=== PATIENT | male | born 1945 | race Caucasian/White ===

== ENCOUNTER → 2017-05-25 | Outpatient (CLI) | payer MEDICARE ==
--- NOTE | 2017-05-25 13:06 | XR ---
EXAMINATION TYPE: XR foot complete RT DATE OF EXAM: 05/25/2017 CLINICAL HISTORY: pain TECHNIQUE: Frontal, lateral and oblique images of the right foot are obtained. COMPARISON: None. FINDINGS: There is no acute fracture/dislocation evident. Mild degenerative narrowing first metatars al phalangeal joint space. The overlying soft tissue appears unremarkable. IMPRESSION: There is no acute fracture or dislocation. ICD 10 NO FRACTURE, INITIAL EVALUATION
== END ==
LOC: RADXRMAIN 12:38
PROVIDERS: ATTEND Family Medicine
DX: S99.921A Unspecified injury of right foot, initial encounter (principal)

== ENCOUNTER → 2018-05-20 | Outpatient (CLI) | payer MEDICARE ==
[2018-05-20 10:22] LABS: Basophils # (A) 0.1 k/uL (0-0.2); Basophils % (A) 1 %; Eosinophils # (A) 0.1 k/uL (0-0.7); Eosinophils % (A) 2 %; HCT 45.2 % (39.0-53.0); HGB 15.1 gm/dL (13.0-17.5); Lymphocytes # (A) 1.6 k/uL (1.0-4.8); Lymphocytes % (A) 28 %; MCH 29.9 pg (25.0-35.0); MCHC 33.5 g/dL (31.0-37.0); MCV 89.3 fL (80.0-100.0); Mean Platelet Volume 6.3; Monocytes # (A) 0.6 k/uL (0-1.0); Monocytes % (A) 10 %; Neutrophils # (A) 3.1 k/uL (1.3-7.7); Neutrophils % (A) 55 %; Platelet Count 237 k/uL (150-450); RBC 5.06 m/uL (4.30-5.90); RDW 13.3 % (11.5-15.5); WBC 5.7 k/uL (3.8-10.6)
[2018-05-20 11:38] LABS: Erythrocyte Sedimentation Rate 3 mm/hr (0-15)
== END | disposition home or self-care (01) ==
LOC: LABWHC1 09:41
PROVIDERS: ATTEND Family Medicine
DX: R50.9 Fever, unspecified (principal); B99.9 Unspecified infectious disease
CPT/HCPCS: 36415; 85025; 85652

== ENCOUNTER 2018-11-28 13:24 | Observation (INO) | payer MEDICARE ==
--- NOTE | 2018-11-28 14:49 | ED ---
General Adult HPI - General Chief complaint: Arrhythmia/Palpitations Stated complaint: Low heart rate Time Seen by Provider: 11/28/18 13:45 Source: patient, family, RN notes reviewed Mode of arrival: wheelchair Limitations: no limitations - History of Present Illness Initial comments: Patient is a pleasant 73-year-old male presenting to the emergency department with concerns for low heart rate. Patient states he did go to his doctor today who sent him here secondary to bradycardia. Patient states he did recently start Lopressor. Patient states overall he feels fine and does not have significant complaints. states the patient seems to be a little bit more drowsy lately and may be somewhat off balance. She states he has been a little bit delayed in general. Patient denies any confusion. Patient denies any weakness. - Related Data Home Medications Medication Instructions Recorded Confirmed Aspirin EC [Ecotrin Low Dose] 81 mg PO DAILY 11/28/18 11/28/18 Metoprolol Tartrate [Lopressor] 100 mg PO BID 11/28/18 11/28/18 Multivit-Min/FA/Lycopen/Lutein 1 tab PO DAILY 11/28/18 11/28/18 [Centrum Silver Tablet] metFORMIN HCL [Glucophage] 500 mg PO BID 11/28/18 11/28/18 Allergies Allergy/AdvReac Type Severity Reaction Status Date / Time diphenhydramine Allergy Itching Verified 11/28/18 14:05 [From Flora] Review of Systems ROS Statement: Those systems with pertinent positive or pertinent negative responses have been documented in the HPI. ROS Other: All systems not noted in ROS Statement are negative. Constitutional: Denies: fever Eyes: Denies: eye pain ENT: Denies: ear pain Respiratory: Denies: dyspnea Cardiovascular: Denies: chest pain, palpitations Endocrine: Denies: fatigue Gastrointestinal: Denies: abdominal pain Genitourinary: Denies: dysuria Musculoskeletal: Denies: back pain Skin: Denies: rash Neurological: Denies: headache, weakness, confusion Past Medical History Past Medical History: CVA/TIA, Hyperlipidemia, Hypertension History of Any Multi-Drug Resistant Organisms: None Reported Past Surgical History: No Surgical Hx Reported Past Psychological History: No Psychological Hx Reported Smoking Status: Never smoker Past Alcohol Use History: None Reported Past Drug Use History: None Reported General Exam Limitations: no limitations General appearance: alert, in no apparent distress Head exam: Present: atraumatic Eye exam: Present: normal appearance, PERRL, EOMI. Absent: nystagmus ENT exam: Present: normal oropharynx Neck exam: Present: normal inspection Respiratory exam: Present: normal lung sounds bilaterally Cardiovascular Exam: Present: bradycardia Expanded Peripheral pulses: 2+: Radial (R), Radial (L), Posterior Tibialis (R), Posterior Tibialis (L) GI/Abdominal exam: Present: soft. Absent: tenderness Extremities exam: Present: normal inspection. Absent: pedal edema, calf tend erness Neurological exam: Present: alert, oriented X3, CN II-XII intact. Absent: motor sensory deficit Expanded Neurological exam: Present: protecting the airway Patient oriented to: Present: person, place, time Speech: Present: fluid speech Cranial nerves: EOM's Intact: Normal, Facial Sensation: Normal Cerebellar function: Finger to Nose: Normal Sensory exam: Upper Extremity Light Touch: Normal, Lower Extremity Light Touch: Normal Motor strength exam: RUE: 5, LUE: 5, RLE: 5, LLE: 5 Eye Response: (4) open spontaneously Motor Response: (6) obeys commands Verbal Response: (5) oriented Psychiatric exam: Present: normal affect, normal mood Skin exam: Present: normal color Course Vital Signs 11/28/18 11/28/18 11/28/18 13:28 13:47 13:50 Temperature 97.8 F Pulse Rate 58 L 54 L Pulse Rate [ Apical] Respiratory 18 20 Rate Blood Pressure 169/83 198/96 O2 Sat by Pulse 97 96 98 Oximetry 11/28/18 11/28/18 11/28/18 13:57 14:00 14:10 Temperature Pulse Rate 50 L 51 L Pulse Rate [ 51 L Apical] Respiratory 25 H 25 H Rate Blood Pressure 198/96 198/96 O2 Sat by Pulse 96 96 Oximetry 11/28/18 11/28/18 11/28/18 14:20 14:30 14:40 Temperature Pulse Rate 51 L 48 L 49 L Pulse Rate [ Apical] Respiratory 22 20 24 Rate Blood Pressure 198/96 198/96 198/96 O2 Sat by Pulse 97 95 97 Oximetry 11/28/18 11/28/18 11/28/18 14:50 15:00 15:10 Temperature Pulse Rate 54 L Pulse Rate [ Apical] Respiratory 15 15 Rate Blood Pressure 162/89 162/89 162/89 O2 Sat by Pulse 97 Oximetry 11/28/18 11/28/18 11/28/18 15:20 15:30 15:40 Temperature Pulse Rate 53 L 50 L Pulse Rate [ Apical] Respiratory 24 12 Rate Blood Pressure 162/89 162/89 162/89 O2 Sat by Pulse 97 Oximetry EKG Findings - EKG Comments: EKG Findings:: Sinus bradycardia at 52. PVC present. VA 138. QRS 86. QT 438. QTC 47. Left axis. Inferior Q waves. No acute ST change. Medical Decision Making - Medical Decision Making Patient reevaluated. Patient and family updated. Case was discussed in detail with Dr. clark, who will admit covering for hospital call. He does request ABG. Cardiology consult placed. - Lab Data Result diagrams: 11/28/18 14:15 11/28/18 14:15 Lab Results 11/28/18 11/28/18 11/28/18 Range/Units 14:15 14:15 14:15 WBC 7.3 (3.8-10.6) k/uL RBC 4.83 (4.30-5.90) m/uL Hgb 14.2 (13.0-17.5) gm/dL Hct 43.9 (39.0-53.0) % MCV 91.0 (80.0-100.0) fL MCH 29.5 (25.0-35.0) pg MCHC 32.4 (31.0-37.0) g/dL RDW 14.1 (11.5-15.5) % Plt Count 255 (150-450) k/uL Neutrophils % 61 % Lymphocytes % 22 % Monocytes % 9 % Eosinophils % 3 % Basophils % 2 % Neutrophils # 4.5 (1.3-7.7) k/uL Lymphocytes # 1.6 (1.0-4.8) k/uL Monocytes # 0.6 (0-1.0) k/uL Eosinophils # 0.2 (0-0.7) k/uL Basophils # 0.1 (0-0.2) k/uL PT 10.0 (9.0-12.0) sec INR 0.9 (<1.2) APTT 24.7 (22.0-30.0) sec Sodium 141 (137-145) mmol/L Potassium 4.9 (3.5-5.1) mmol/L Chloride 106 (98-107) mmol/L Carbon Dioxide 26 (22-30) mmol/L Anion Gap 9 mmol/L BUN 19 (9-20) mg/dL Creatinine 0.80 (0.66-1.25) mg/dL Est GFR (CKD-EPI)AfAm >90 (>60 ml/min/1.73 sqM) Est GFR (CKD-EPI)NonAf 90 (>60 ml/min/1.73 sqM) Glucose 95 (74-99) mg/dL Calcium 9.6 (8.4-10.2) mg/dL Magnesium 2.0 (1.6-2.3) mg/dL Total Bilirubin 0.3 (0.2-1.3) mg/dL AST 24 (17-59) U/L ALT 37 (21-72) U/L Alkaline Phosphatase 59 (38-126) U/L Troponin I (0.000-0.034) ng/mL Total Protein 6.8 (6.3-8.2) g/dL Albumin 4.1 (3.5-5.0) g/dL TSH 2.850 (0.465-4.680) mIU/L Free T4 0.87 (0.78-2.19) ng/dL Free T3 pg/mL 3.2 (2.8-5.3) pg/ml 11/28/18 Range/Units 14:15 WBC (3.8-10.6) k/uL RBC (4.30-5.90) m/uL Hgb (13.0-17.5) gm/dL Hct (39.0-53.0) % MCV (80.0-100.0) fL MCH (25.0-35.0) pg MCHC (31.0-37.0) g/dL RDW (11.5-15.5) % Plt Count (150-450) k/uL Neutrophils % % Lymphocytes % % Monocytes % % Eosinophils % % Basophils % % Neutrophils # (1.3-7.7) k/uL Lymphocytes # (1.0-4.8) k/uL Monocytes # (0-1.0) k/uL Eosinophils # (0-0.7) k/uL Basophils # (0-0.2) k/uL PT (9.0-12.0) sec INR (<1.2) APTT (22.0-30.0) sec Sodium (137-145) mmol/L Potassium (3.5-5.1) mmol/L Chloride (98-107) mmol/L Carbon Dioxide (22-30) mmol/L Anion Gap mmol/L BUN (9-20) mg/dL Creatinine (0.66-1.25) mg/dL Est GFR (CKD-EPI)AfAm (>60 ml/min/1.73 sqM) Est GFR (CKD-EPI)NonAf (>60 ml/min/1.73 sqM) Glucose (74-99) mg/dL Calcium (8.4-10.2) mg/dL Magnesium (1.6-2.3) mg/dL Total Bilirubin (0.2-1.3) mg/dL AST (17-59) U/L ALT (21-72) U/L Alkaline Phosphatase (38-126) U/L Troponin I <0.012 (0.000-0.034) ng/mL Total Protein (6.3-8.2) g/dL Albumin (3.5-5.0) g/dL TSH (0.465-4.680) mIU/L Free T4 (0.78-2.19) ng/dL Free T3 pg/mL (2.8-5.3) pg/ml - Radiology Data Radiology results: report reviewed (Computed tomography scan of the brain shows old right parietal occipital watershed infarct.. Ventricular white matter changes.), image reviewed (X-ray shows no acute process) Disposition Clinical Impression: Bradycardia Disposition: ADMITTED IP TO THIS HOSP Is patient prescribed a controlled substance at d/c from ED?: No Referrals: David Mcpherson MD [Primary Care Provider] - 1-2 days Decision Time: 16:29
[2018-11-28 15:17] LABS: Basophils # (A) 0.1 k/uL (0-0.2); Basophils % (A) 2 %; Eosinophils # (A) 0.2 k/uL (0-0.7); Eosinophils % (A) 3 %; HCT 43.9 % (39.0-53.0); HGB 14.2 gm/dL (13.0-17.5); INR 0.9 (<1.2); Lymphocytes # (A) 1.6 k/uL (1.0-4.8); Lymphocytes % (A) 22 %; MCH 29.5 pg (25.0-35.0); MCHC 32.4 g/dL (31.0-37.0); Mean Platelet Volume 7.2; Monocytes # (A) 0.6 k/uL (0-1.0); Monocytes % (A) 9 %; Neutrophils # (A) 4.5 k/uL (1.3-7.7); Neutrophils % (A) 61 %; Partial Thromboplastin Time 24.7 sec (22.0-30.0); Platelet Count 255 k/uL (150-450); RBC 4.83 m/uL (4.30-5.90); RDW 14.1 % (11.5-15.5); WBC 7.3 k/uL (3.8-10.6)
--- NOTE | 2018-11-28 15:23 | CT ---
EXAMINATION TYPE: CT brain wo con DATE OF EXAM: 11/28/2018 COMPARISON: None INDICATION: Slurred speech, confusion. DLP: 1168.4 mGycm, Automated exposure control for dose reduction was used. CONTRAST: None CT of the brain is performed utilizing 3 mm thick sections through the posterior fossa and 3 mm thick sections through the remaining calvarium. Study is performed within 24 hours of arrival to the hosp ital. No abnormal hyperdensity is present to suggest an acute intracranial hemorrhage. No mass lesion is evident. No acute infarcts are evident. Periventricular white matter hypodensity is present, likely on the bas is of white matter ischemic changes. An old right watershed infarct is present. Ventricles and sulci are slightly prominent for the patient age. Mild ex vacuo effect is adjacent to the old watershed infarct. Paranasal sinuses and mastoid air cells within the [id number] are clear. IMPRESSIONS: 1. 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 2. Periventricular white matter ischemic type changes.
[2018-11-28 15:26] LABS: ALT 37 U/L (21-72); AST 24 U/L (17-59); Albumin 4.1 g/dL (3.5-5.0); Alkaline Phosphatase 59 U/L (38-126); Anion Gap 9 mmol/L; Blood Urea Nitrogen 19 mg/dL (9-20); Calcium 9.6 mg/dL (8.4-10.2); Carbon Dioxide 26 mmol/L (22-30); Chloride 106 mmol/L (98-107); Glucose 95 mg/dL (74-99); Potassium 4.9 mmol/L (3.5-5.1); Sodium 141 mmol/L (137-145); Total Bilirubin 0.3 mg/dL (0.2-1.3); Total Protein 6.8 g/dL (6.3-8.2)
--- NOTE | 2018-11-28 15:27 | XR ---
EXAMINATION TYPE: XR chest 2V DATE OF EXAM: 11/28/2018 COMPARISON: NONE HISTORY: Dysrhythmia TECHNIQUE: Frontal and lateral views of the chest are obtained. FINDINGS: There is no focal air space opacity, pleural effusion, or pneumothorax seen. The cardiac silhouette size is upper limits of normal. The osseous structures are intact. Moderate multilevel d egenerative change of the thoracic spine is seen as well as flowing anterior osteophytes. IMPRESSION: No acute cardiopulmonary process.
[2018-11-28 15:39] LABS: T4, Free (Free Thyroxine) 0.87 ng/dL (0.78-2.19)
[2018-11-28] MEDS ORDERED: NALOXONE 0.4 MG/ML 1 ML VIAL IV PRN (16:29)
[2018-11-28] MEDS ORDERED: SODIUM CHLORIDE 0.9% 1,000 ML IV SCH (16:30)
[2018-11-28 16:49] LABS: ABG Base Excess 0.8 mmol/L; ABG HCO3 24 mmol/L (21-25); ABG Oxygen Saturation 99.9 % (94-97); ABG PCO2 32 mmHg (35-45); ABG PH 7.49 (7.35-7.45); ABG PO2 181 mmHg (83-108); ABG TCO2 25 mmol/L (19-24)
[2018-11-28] MEDS ORDERED: MULTIVITAMINS, THERA 1 EACH TAB PO SCH (17:30)
[2018-11-28] MEDS ORDERED: METOPROLOL TARTRATE 50 MG TAB PO SCH (18:00)
[2018-11-28] MEDS ORDERED: ASPIRIN 81 MG PO STA (19:14)
[2018-11-28] MEDS ORDERED: metFORMIN 500 MG TAB PO SCH (21:00)
[2018-11-28 21:45] VITALS: BP 134/67; PULSE 56; RESP 15; TEMP 98
[2018-11-29] MEDS ORDERED: ASPIRIN 81 MG PO SCH (09:00)
--- NOTE | 2018-12-01 06:40 | DS ---
DISCHARGE SUMMARY HISTORY AND PHYSICAL AND DISCHARGE SUMMARY: DATE OF ADMISSION AND TRANSFER: 11/28/2018 HOSPITAL COURSE: This patient was to be admitted from the ER, but the ER physician evaluated the patient and because of neurological status decided to transfer the patient out. The patient was not admitted to the hospital. The patient was not seen by me. JIMY / JOSÉ MANUEL: [id number] /
== END 2018-11-29 02:06 | disposition critical access hospital (66) ==
LOC: EC 13:24 → 1SOBS 16:29
PROVIDERS: ADMIT Hospitalist; ATTEND Hospitalist
DX: R00.1 Bradycardia, unspecified (principal); R00.2 Palpitations; R40.0 Somnolence; E78.5 Hyperlipidemia, unspecified; I10 Essential (primary) hypertension; Z86.73 Personal history of transient ischemic attack (TIA), and cerebral infarction without residual deficits; Z79.82 Long term (current) use of aspirin; Z79.84 Long term (current) use of oral hypoglycemic drugs; Z79.899 Other long term (current) drug therapy; Z88.8 Allergy status to other drugs, medicaments and biological substances
CPT/HCPCS: 99285; 36415; 36600; 93005; 84439; 84481; 80053; 82805; 83735; 84443; 84484; 85025; 85610; 85730; 71046; 70450; G0378 ×2

== ENCOUNTER 2021-08-04 21:02 | Inpatient (IN) | payer MEDICARE ==
--- NOTE | 2021-08-04 21:27 | ED ---
SOB HPI - General Chief Complaint: Shortness of Breath Stated Complaint: Shortness of Breath Time Seen by Provider: 08/04/21 21:15 Source: patient Mode of arrival: ambulatory - History of Present Illness Initial Comments: This patient is 76-year-old man who presents to be evaluated for shortness of breath and cough. The patient states that symptoms have been coming on over the past few days. Patient relates that someone had come into his home and to lay carpet and had not been feeling well. Patient states that he began feeling more short of breath tonight and therefore they called the ambulance to bring him here. Patient denies history of previous underlying lung disease. No home oxygen use. The patient had not noted fevers at home but did note one in the ambulance. MD Complaint: shortness of breath, cough -: days(s) Severity scale (1-10): 0 Consistency: constant Improves With: nothing Worsens With: nothing Associated Symptoms: fever, cough Treatments Prior to Arrival: oxygen - Related Data Home Oxygen Therapy: No Home Medications Medication Instructions Recorded Confirmed Aspirin EC [Ecotrin Low Dose] 81 mg PO DAILY 11/28/18 08/04/21 Metoprolol Tartrate [Lopressor] 100 mg PO BID 11/28/18 08/04/21 metFORMIN HCL [Glucophage] 500 mg PO BID 11/28/18 08/04/21 Atorvastatin Calcium [Lipitor] 40 mg PO HS 08/04/21 08/04/21 lisinopriL [Zestril] 10 mg PO DAILY 08/04/21 08/04/21 Allergies Allergy/AdvReac Type Severity Reaction Status Date / Time diphenhydramine Allergy Itching Verified 08/04/21 22:37 [From Benadryl] Review of Systems ROS Statement: Those systems with pertinent positive or pertinent negative responses have been documented in the HPI. ROS Other: All systems not noted in ROS Statement are negative. Constitutional: Denies: fever, chills ENT: Reports: congestion Respiratory: Reports: cough, dyspnea. Denies: hemoptysis Cardiovascular: Denies: chest pain, palpitations, orthopnea, edema, syncope Gastrointestinal: Denies: abdominal pain, vomiting, diarrhea, melena, hematochezia Genitourinary: Denies: dysuria, hematuria Musculoskeletal: Denies: back pain Skin: Denies: rash Neurological: Denies: headache, weakness, numbness Past Medical History Past Medical History: CVA/TIA, Hyperlipidemia, Hypertension History of Any Multi-Drug Resistant Organisms: None Reported Past Surgical History: No Surgical Hx Reported, Heart Catheterization Additional Past Surgical History / Comment(s): anal fissure repair and polyp removal Past Psychological History: No Psychological Hx Reported Smoking Status: Former smoker Past Alcohol Use History: None Reported Past Drug Use History: None Reported General Exam General appearance: alert, in distress Head exam: Present: atraumatic, normocephalic Eye exam: Present: normal appearance. Absent: scleral icterus, conjunctival injection Neck exam: Present: normal inspection Respiratory exam: Present: respiratory distress (Tachypnea), rales. Absent: wheezes, rhonchi, stridor, accessory muscle use, decreased breath sounds, prolonged expiratory Cardiovascular Exam: Present: normal rhythm, tachycardia, normal heart sounds. Absent: systolic murmur, diastolic murmur, rubs, gallop GI/Abdominal exam: Present: soft, hernia (There is an umbilical hernia which is nontender.). Absent: distended, tenderness, guarding, rebound, rigid, mass, pulsatile mass Extremities exam: Present: normal inspection, normal capillary refill. Absent: pedal edema, calf tenderness Back exam: Present: normal inspection. Absent: CVA tenderness (R), CVA tenderness (L) Neurological exam: Present: alert Skin exam: Present: warm, dry, intact, normal color. Absent: rash Course Vital Signs 08/04/21 08/04/21 21:11 21:17 Temperature 99.3 F Pulse Rate 117 H Respiratory 26 H 24 Rate Blood Pressure 178/97 O2 Sat by Pulse 93 L Oximetry Medical Decision Making - Lab Data Result diagrams: 08/04/21 21:29 08/04/21 21:29 Lab Results 08/04/21 08/04/21 08/04/21 Range/Units 21:29 21:29 21:29 WBC 21.2 H (3.8-10.6) k/uL RBC 4.70 (4.30-5.90) m/uL Hgb 14.5 (13.0-17.5) gm/dL Hct 40.3 (39.0-53.0) % MCV 85.6 (80.0-100.0) fL MCH 30.9 (25.0-35.0) pg MCHC 36.1 (31.0-37.0) g/dL RDW 12.3 (11.5-15.5) % Plt Count 332 (150-450) k/uL MPV 7.7 Neutrophils % 91 % Lymphocytes % 2 % Monocytes % 6 % Eosinophils % 0 % Basophils % 0 % Neutrophils # 19.2 H (1.3-7.7) k/uL Lymphocytes # 0.4 L (1.0-4.8) k/uL Monocytes # 1.2 H (0-1.0) k/uL Eosinophils # 0.1 (0-0.7) k/uL Basophils # 0.1 (0-0.2) k/uL PT 12.1 H (9.0-12.0) sec INR 1.2 H (<1.2) APTT 23.8 (22.0-30.0) sec D-Dimer 0.71 H (<0.60) mg/L FEU Sodium 128 L (137-145) mmol/L Potassium 3.7 (3.5-5.1) mmol/L Chloride 95 L (98-107) mmol/L Carbon Dioxide 22 (22-30) mmol/L Anion Gap 11 mmol/L BUN 14 (9-20) mg/dL Creatinine 0.83 (0.66-1.25) mg/dL Est GFR (CKD-EPI)AfAm >90 (>60 ml/min/1.73 sqM) Est GFR (CKD-EPI)NonAf 86 (>60 ml/min/1.73 sqM) Glucose 156 H (74-99) mg/dL Plasma Lactic Acid Pankaj (0.7-2.0) mmol/L Calcium 8.6 (8.4-10.2) mg/dL Total Bilirubin 1.1 (0.2-1.3) mg/dL AST 52 (17-59) U/L ALT 38 (4-49) U/L Alkaline Phosphatase 99 (38-126) U/L Troponin I (0.000-0.034) ng/mL NT-Pro-B Natriuret Pep pg/mL Total Protein 6.4 (6.3-8.2) g/dL Albumin 3.4 L (3.5-5.0) g/dL Coronavirus (PCR) (Not Detectd) 08/04/21 08/04/21 08/04/21 Range/Units 21:29 21:29 21:29 WBC (3.8-10.6) k/uL RBC (4.30-5.90) m/uL Hgb (13.0-17.5) gm/dL Hct (39.0-53.0) % MCV (80.0-100.0) fL MCH (25.0-35.0) pg MCHC (31.0-37.0) g/dL RDW (11.5-15.5) % Plt Count (150-450) k/uL MPV Neutrophils % % Lymphocytes % % Monocytes % % Eosinophils % % Basophils % % Neutrophils # (1.3-7.7) k/uL Lymphocytes # (1.0-4.8) k/uL Monocytes # (0-1.0) k/uL Eosinophils # (0-0.7) k/uL Basophils # (0-0.2) k/uL PT (9.0-12.0) sec INR (<1.2) APTT (22.0-30.0) sec D-Dimer (<0.60) mg/L FEU Sodium (137-145) mmol/L Potassium (3.5-5.1) mmol/L Chloride (98-107) mmol/L Carbon Dioxide (22-30) mmol/L Anion Gap mmol/L BUN (9-20) mg/dL Creatinine (0.66-1.25) mg/dL Est GFR (CKD-EPI)AfAm (>60 ml/min/1.73 sqM) Est GFR (CKD-EPI)NonAf (>60 ml/min/1.73 sqM) Glucose (74-99) mg/dL Plasma Lactic Acid Pankaj 1.3 (0.7-2.0) mmol/L Calcium (8.4-10.2) mg/dL Total Bilirubin (0.2-1.3) mg/dL AST (17-59) U/L ALT (4-49) U/L Alkaline Phosphatase (38-126) U/L Troponin I 0.423 H* (0.000-0.034) ng/mL NT-Pro-B Natriuret Pep 1440 pg/mL Total Protein (6.3-8.2) g/dL Albumin (3.5-5.0) g/dL Coronavirus (PCR) (Not Detectd) 08/04/21 Range/Units 21:29 WBC (3.8-10.6) k/uL RBC (4.30-5.90) m/uL Hgb (13.0-17.5) gm/dL Hct (39.0-53.0) % MCV (80.0-100.0) fL MCH (25.0-35.0) pg MCHC (31.0-37.0) g/dL RDW (11.5-15.5) % Plt Count (150-450) k/uL MPV Neutrophils % % Lymphocytes % % Monocytes % % Eosinophils % % Basophils % % Neutrophils # (1.3-7.7) k/uL Lymphocytes # (1.0-4.8) k/uL Monocytes # (0-1.0) k/uL Eosinophils # (0-0.7) k/uL Basophils # (0-0.2) k/uL PT (9.0-12.0) sec INR (<1.2) APTT (22.0-30.0) sec D-Dimer (<0.60) mg/L FEU Sodium (137-145) mmol/L Potassium (3.5-5.1) mmol/L Chloride (98-107) mmol/L Carbon Dioxide (22-30) mmol/L Anion Gap mmol/L BUN (9-20) mg/dL Creatinine (0.66-1.25) mg/dL Est GFR (CKD-EPI)AfAm (>60 ml/min/1.73 sqM) Est GFR (CKD-EPI)NonAf (>60 ml/min/1.73 sqM) Glucose (74-99) mg/dL Plasma Lactic Acid Pankaj (0.7-2.0) mmol/L Calcium (8.4-10.2) mg/dL Total Bilirubin (0.2-1.3) mg/dL AST (17-59) U/L ALT (4-49) U/L Alkaline Phosphatase (38-126) U/L Troponin I (0.000-0.034) ng/mL NT-Pro-B Natriuret Pep pg/mL Total Protein (6.3-8.2) g/dL Albumin (3.5-5.0) g/dL Coronavirus (PCR) Detected A (Not Detectd) - EKG Data -: EKG Interpreted by Me EKG shows normal: sinus rhythm (Sinus tachycardia with premature SV complexes), axis (After axis deviation), intervals (Normal), QRS complexes (Normal) Rate: tachycardia (Rate 122 bpm) Interpretation: nonspecific ST-T wave changes Disposition Clinical Impression: Pneumonia due to COVID-19 virus, Elevated troponin I level Disposition: ADMITTED IP TO THIS HOSP Condition: Fair Is patient prescribed a controlled substance at d/c from ED?: No
[2021-08-04 21:46] LABS: Basophils # (A) 0.1 k/uL (0-0.2); Basophils % (A) 0 %; Eosinophils # (A) 0.1 k/uL (0-0.7); Eosinophils % (A) 0 %; HCT 40.3 % (39.0-53.0); HGB 14.5 gm/dL (13.0-17.5); Lymphocytes # (A) 0.4 k/uL (1.0-4.8); Lymphocytes % (A) 2 %; MCH 30.9 pg (25.0-35.0); MCHC 36.1 g/dL (31.0-37.0); MCV 85.6 fL (80.0-100.0); Mean Platelet Volume 7.7; Monocytes # (A) 1.2 k/uL (0-1.0); Monocytes % (A) 6 %; Neutrophils # (A) 19.2 k/uL (1.3-7.7); Neutrophils % (A) 91 %; Platelet Count 332 k/uL (150-450); RDW 12.3 % (11.5-15.5); WBC 21.2 k/uL (3.8-10.6)
--- NOTE | 2021-08-04 21:46 | XR ---
EXAMINATION TYPE: XR chest 1V portable DATE OF EXAM: 08/04/2021 COMPARISON: Chest radiograph 11/28/2018 HISTORY: Increased confusion and shortness of breath. TECHNIQUE: Single frontal view of the chest is obtained. FINDINGS: Cardiomediastinal silhouette is partially obscured but appears within normal limits. There is patchy and hazy opacity in the lower lungs bilaterally. The osseous structures are intact. IMPRESSION: Multifocal pneumonia/edema.
[2021-08-04 21:55] LABS: ALT 38 U/L (4-49); AST 52 U/L (17-59); African American GFR (CKD) >90 (>60 ml/min/1.73 sqM); Albumin 3.4 g/dL (3.5-5.0); Alkaline Phosphatase 99 U/L (38-126); Anion Gap 11 mmol/L; Blood Urea Nitrogen 14 mg/dL (9-20); Calcium 8.6 mg/dL (8.4-10.2); Carbon Dioxide 22 mmol/L (22-30); Chloride 95 mmol/L (98-107); Glucose 156 mg/dL (74-99); Non-African American GFR(CKD) 86 (>60 ml/min/1.73 sqM); Potassium 3.7 mmol/L (3.5-5.1); Sodium 128 mmol/L (137-145); Total Bilirubin 1.1 mg/dL (0.2-1.3); Total Protein 6.4 g/dL (6.3-8.2)
[2021-08-04 22:15] LABS: INR 1.2 (<1.2); Partial Thromboplastin Time 23.8 sec (22.0-30.0); Prothrombin Time 12.1 sec (9.0-12.0)
[2021-08-04] MEDS ORDERED: dexAMETHasone 2 MG TAB PO STA (22:39)
[2021-08-04] MEDS ORDERED: PNEUMONIA PROTOCOL UTILIZED 1 EACH MISC PO PRN (22:48)
[2021-08-04] MEDS ORDERED: ALBUTEROL NEBULIZED 2.5 MG/3 ML INHALATION PRN (22:55)
[2021-08-04] MEDS: SODIUM CHLORIDE 0.9% 1,000 ML IV SCH (23:12)
[2021-08-05] MEDS: ALBUTEROL HFA INHALER INHALATION PRN ×4 (00:24→15:08)
[2021-08-05] MEDS: ASPIRIN 81 MG PO SCH (08:56)
[2021-08-05] MEDS: FAMOTIDINE 20 MG TAB PO SCH (08:56)
[2021-08-05] MEDS: DEXAMETHASONE SOD PHOSPHATE 10 MG/ML 1 ML VIAL IVP SCH (08:56)
[2021-08-05] MEDS: ENOXAPARIN 40 MG/0.4 ML SYRINGE SQ SCH (08:56)
[2021-08-05] MEDS: METOPROLOL TARTRATE 50 MG TAB PO SCH ×2 (08:57→21:47)
[2021-08-05] MEDS: lisinopriL 10 MG TAB PO SCH (08:57)
[2021-08-05] MEDS ORDERED: ENOXAPARIN 40 MG/0.4 ML SYRINGE SQ SCH (09:00)
[2021-08-05] MEDS ORDERED: metFORMIN 500 MG TAB PO SCH (09:00)
--- NOTE | 2021-08-05 11:57 | P.HPIM ---
History of Present Illness 76-year-old pleasant male came in with complaints of shortness of breath and cough and patient is on 6 L of oxygen and found to have Covid 19 pneumonia chest x-ray is consistent with Covid 19. Patient is bit hyponatremic as well. P carlos does have history of diabetes mellitus. Patient vaccinated for Covid 19 patient symptoms has been going on for about a week patient's d-dimer is around 0.7. Patient is presently on Lovenox for DVT prophylaxis. Patient denied any history of COPD or asthma patient last smoked about 52 years ago still has significant wheezing on exam. And has a significant generalized weakness and fatigue REVIEW OF SYSTEMS: CONSTITUTIONAL: She HPI no fever HEENT: No recent visual problems or hearing problems. Denied any sore throat. CARDIOVASCULAR: No chest pain, orthopnea, PND, no palpitations, no syncope. PULMONARY: no hemoptysis. GASTROINTESTINAL: No diarrhea, no nausea, no vomiting, no abdominal pain. NEUROLOGICAL: No headaches, no weakness, no numbness. HEMATOLOGICAL: Denies any bleeding or petechiae. GENITOURINARY: Denies any burning micturition, frequency, or urgency. MUSCULOSKELETAL/RHEUMATOLOGICAL: Denies any joint pain, swelling, or any muscle pain. ENDOCRINE: Denies any polyuria or polydipsia. The rest of the 14-point review of systems is negative. PHYSICAL EXAMINATION: GENERAL: The patient is alert and oriented x3, not in any acute distress. Morbidly obese HEENT: Pupils are round and equally reacting to light. EOMI. No scleral icterus. No conjunctival pallor. Normocephalic, atraumatic. No pharyngeal erythema. No thyromegaly. CARDIOVASCULAR: S1 and S2 present. No murmurs, rubs, or gallops. PULMONARY: expiratory wheezing and exam ABDOMEN: Soft, nontender, nondistended, normoactive bowel sounds. No palpable organomegaly. MUSCULOSKELETAL: No joint swelling or deformity. EXTREMITIES: No cyanosis, clubbing, or pedal edema. NEUROLOGICAL: Gross neurological examination did not reveal any new focal deficits. SKIN: No rashes. Assessment and plan -Acute hypoxic respiratory failure secondary to Covid 19 pneumonia him up patient will be started on echo done GI prophylaxis and DVT prophylaxis. -Obesity -History of cerebral vascular accident involving the right the body -Hypertension -Type 2 diabetes mellitus which patient the will be started on sliding scale insulin and hold off on metformin. DVT prophylaxis: Lovenox Past Medical History Past Medical History: CVA/TIA, Hyperlipidemia, Hypertension History of Any Multi-Drug Resistant Organisms: None Reported Past Surgical History: No Surgical Hx Reported, Heart Catheterization Additional Past Surgical History / Comment(s): anal fissure repair and polyp removal Past Psychological History: No Psychological Hx Reported Smoking Status: Former smoker Past Alcohol Use History: None Reported Past Drug Use History: None Reported Medications and Allergies Home Medications Medication Instructions Recorded Confirmed Type Aspirin EC [Ecotrin Low Dose] 81 mg PO DAILY 11/28/18 08/04/21 History Metoprolol Tartrate [Lopressor] 100 mg PO BID 11/28/18 08/04/21 History metFORMIN HCL [Glucophage] 500 mg PO BID 11/28/18 08/04/21 History Atorvastatin Calcium [Lipitor] 40 mg PO HS 08/04/21 08/04/21 History lisinopriL [Zestril] 10 mg PO DAILY 08/04/21 08/04/21 History Allergies Allergy/AdvReac Type Severity Reaction Status Date / Time diphenhydramine Allergy Itching Verified 08/04/21 22:37 [From Flora] Physical Exam Vitals: Vital Signs Temp Pulse Resp BP Pulse Ox 08/05/21 11:48 77 18 132/89 91 L 08/05/21 07:44 98.3 F 101 H 18 162/81 91 L 08/05/21 05:53 97.9 F 105 H 18 151/85 89 L 08/05/21 02:00 91 24 155/80 91 L 08/05/21 01:00 98 24 163/82 91 L 08/05/21 00:00 99 24 160/84 92 L 08/04/21 23:00 105 H 24 162/86 92 L 08/04/21 22:00 113 H 24 173/97 93 L 08/04/21 21:17 24 08/04/21 21:11 99.3 F 117 H 26 H 178/97 93 L Intake and Output 08/04/21 08/05/21 08/05/21 22:59 06:59 14:59 Other: Weight 99.79 kg Results CBC & Chem 7: 08/04/21 21:29 08/04/21 21:29 Labs: Abnormal Lab Results - Last 24 Hours (Table) 08/04/21 08/04/21 08/04/21 Range/Units 21:29 21:29 21:29 WBC 21.2 H (3.8-10.6) k/uL Neutrophils # 19.2 H (1.3-7.7) k/uL Lymphocytes # 0.4 L (1.0-4.8) k/uL Monocytes # 1.2 H (0-1.0) k/uL PT 12.1 H (9.0-12.0) sec INR 1.2 H (<1.2) D-Dimer 0.71 H (<0.60) mg/L FEU Sodium 128 L (137-145) mmol/L Chloride 95 L (98-107) mmol/L Glucose 156 H (74-99) mg/dL Troponin I (0.000-0.034) ng/mL Albumin 3.4 L (3.5-5.0) g/dL Procalcitonin (0.02-0.09) ng/mL Coronavirus (PCR) (Not Detectd) 08/04/21 08/04/21 08/05/21 Range/Units 21: 21: 02:53 WBC (3.8-10.6) k/uL Neutrophils # (1.3-7.7) k/uL Lymphocytes # (1.0-4.8) k/uL Monocytes # (0-1.0) k/uL PT (9.0-12.0) sec INR (<1.2) D-Dimer (<0.60) mg/L FEU Sodium (137-145) mmol/L Chloride (98-107) mmol/L Glucose (74-99) mg/dL Troponin I 0.423 H* (0.000-0.034) ng/mL Albumin (3.5-5.0) g/dL Procalcitonin 0.37 H (0.02-0.09) ng/mL Coronavirus (PCR) Detected A (Not Detectd) 08/05/21 Range/Units 02:57 WBC (3.8-10.6) k/uL Neutrophils # (1.3-7.7) k/uL Lymphocytes # (1.0-4.8) k/uL Monocytes # (0-1.0) k/uL PT (9.0-12.0) sec INR (<1.2) D-Dimer (<0.60) mg/L FEU Sodium (137-145) mmol/L Chloride (98-107) mmol/L Glucose (74-99) mg/dL Troponin I 0.287 H* (0.000-0.034) ng/mL Albumin (3.5-5.0) g/dL Procalcitonin (0.02-0.09) ng/mL Coronavirus (PCR) (Not Detectd)
[2021-08-05 13:12] LABS: Glucose,Whole Blood 142 mg/dL (75-99)
[2021-08-05] MEDS: CHOLECALCIFEROL 125 MCG (5000 IU) TABLET PO SCH (13:45)
--- NOTE | 2021-08-05 15:37 | P.CNPUL ---
History of Present Illness Consult date: 08/05/21 Reason for consult: dyspnea, cough History of present illness: 76-year-old male patient, who presented initially to [facility] and later on transferred to [facility] because of COVID 19 related pneumonia and shortness of breath. Both himself and his felt sick. Both of them are hospitalized for now. The patient started getting sick approximately over a week ago and he recalls his symptoms started approximately 10 days ago. He started having fatigue and tiredness and malaise in addition to some cough and shortness of breath. He ultimately became very weak. He presented to [facility] via EMS. His son noticed that the patient was quite ill and he called EMS and accordingly got transferred to the hospital. The patient has no history of any chronic lung disease. He is a nonsmoker for now. He has not received his vaccination for COVID 19. The patient had no nausea or vomiting no diarrhea. No altered mentation. He was quite hypoxic upon arrival and the patient is currently on 7 L of oxygen by nasal cannula to build a pulse ox of around 85-86%. The patient had a white cell count of 21.2, hemoglobin 14.5, his sodium was 128,. Troponin elevation of 0.4-3 and later on down to 0.287, his d- dimer is at 0.7, normal renal function, resident inflammatory markers are still pending including LDH and CRP. White cell count is at 21.2 with a hemoglobin of 14.5. Chest x-ray is consistent with bilateral pulmonary infiltrates consistent with COVID 19 related pneumonia. EKG showed sinus tachycardia, occasional premature supraventricular complexes and left atrial enlargement. No evidence of any acute ischemic changes. No reported chest pain. No previous history of DVT or pulmonary embolism. Review of Systems Constitutional: Reports fatigue, Reports fever, Reports weakness Eyes: denies as per HPI, denies blurred vision, denies bulging eye, denies decreased vision, denies diplopia, denies discharge, denies dry eye, denies irri tation, denies itching, denies pain, denies photophobia, denies loss of peripheral vision, denies loss of vision, denies tunnel vision/blind spots Ears: deny: decreased hearing, ear discharge, earache, tinnitus Ears, nose, mouth and throat: Reports as per HPI Breasts: absent: as per HPI, gynecomastia Cardiovascular: Reports decreased exercise tolerance, Reports dyspnea on exertion Respiratory: Reports cough, Reports dyspnea Gastrointestinal: Reports as per HPI Genitourinary: Reports as per HPI Musculoskeletal: Reports as per HPI Musculoskeletal: absent: ankle pain, ankle stiffness, ankle swelling, as per HPI, elbow pain, elbow stiffness, elbow swelling, foot pain, foot stiffness, foot swelling, hand pain, hand stiffness, hand swelling, hip pain, hip stiffness, hip swelling, knee pain, knee stiffness, knee swelling, shoulder pain, shoulder stiffness, shoulder swelling, wrist pain, wrist stiffness, wrist swelling Integumentary: Reports as per HPI Neurological: Reports as per HPI, Reports weakness Psychiatric: Reports as per HPI Endocrine: Reports as per HPI Hematologic/Lymphatic: Reports as per HPI Allergic/Immunologic: Reports as per HPI Past Medical History Past Medical History: Coronary Artery Disease (CAD) ( Heart), CVA/TIA (deficits includes impaired vision and weakness on the left and the patient walks around with the help of a cane.), Hyperlipidemia, Hypertension, Myocardial Infarction ([place]) History of Any Multi-Drug Resistant Organisms: None Reported Past Surgical History: No Surgical Hx Reported, Heart Catheterization Additional Past Surgical History / Comment(s): anal fissure repair and polyp removal Past Psychological History: No Psychological Hx Reported Smoking Status: Former smoker Past Alcohol Use History: None Reported Past Drug Use History: None Reported Medications and Allergies Home Medications Medication Instructions Recorded Confirmed Type Aspirin EC [Ecotrin Low Dose] 81 mg PO DAILY 11/28/18 08/04/21 History Metoprolol Tartrate [Lopressor] 100 mg PO BID 11/28/18 08/04/21 History metFORMIN HCL [Glucophage] 500 mg PO BID 11/28/18 08/04/21 History Atorvastatin Calcium [Lipitor] 40 mg PO HS 08/04/21 08/04/21 History lisinopriL [Zestril] 10 mg PO DAILY 08/04/21 08/04/21 History Allergies Allergy/AdvReac Type Severity Reaction Status Date / Time diphenhydramine Allergy Itching Verified 08/04/21 22:37 [From Benadryl] Physical Exam Vitals: Vital Signs Temp Pulse Resp BP Pulse Ox 08/05/21 11:48 77 18 132/89 91 L 08/05/21 07:44 98.3 F 101 H 18 162/81 91 L 08/05/21 05:53 97.9 F 105 H 18 151/85 89 L 08/05/21 02:00 91 24 155/80 91 L 08/05/21 01:00 98 24 163/82 91 L 08/05/21 00:00 99 24 160/84 92 L 08/04/21 23:00 105 H 24 162/86 92 L 08/04/21 22:00 113 H 24 173/97 93 L 08/04/21 21:17 24 08/04/21 21:11 99.3 F 117 H 26 H 178/97 93 L GENERAL: The patient is alert and oriented x3, not in any acute distress. Morbidly obese currently on several liters of oxygen by nasal cannula. Mild respiratory distress. Overall, he is not using excessive muscle breathing. Is able to speak full sentences. Head exam was generally normal. There was no scleral icterus or corneal arcus. Mucous membranes were moist. HEENT: Pupils are round and equally reacting to light. EOMI. No scleral icterus. No conjunctival pallor. Normocephalic, atraumatic. No pharyngeal erythema. No thyromegaly. CARDIOVASCULAR: S1 and S2 present. No murmurs, rubs, or gallops. PULMONARY: expiratory wheezing and exam ABDOMEN: Soft, nontender, nondistended, normoactive bowel sounds. No palpable organomegaly. MUSCULOSKELETAL: No joint swelling or deformity. EXTREMITIES: No cyanosis, clubbing, or pedal edema. NEUROLOGICAL: Gross neurological examination did not reveal any new focal deficits. The patient has some chronic weakness on the left than the patient walks well with the help of a cane. No focal neurological deficit or any new onset neurological deficits. This is related to previous stroke. Examination of the skin revealed no evidence of significant rashes, suspicious appearing nevi or other concerning lesions. Results - Laboratory Findings CBC and BMP: 08/04/21 21:29 08/04/21 21: PT/INR, D-dimer PT 12.1 sec (9.0-12.0) H 08/04/21: INR 1.2 (<1.2) H 08/04/21 21: D-Dimer 0.71 mg/L FEU (<0.60) H 08/04/21 21: Abnormal lab findings: Abnormal Labs 08/04/21 08/04/21 08/04/21 21:29 21:29 21:29 WBC 21.2 H Neutrophils # 19.2 H Lymphocytes # 0.4 L Monocytes # 1.2 H PT 12.1 H INR 1.2 H D-Dimer 0.71 H Sodium 128 L Chloride 95 L Glucose 156 H POC Glucose (mg/dL) Troponin I Albumin 3.4 L Procalcitonin Coronavirus (PCR) 08/04/21 08/04/21 08/05/21 21:29 21:29 02:53 WBC Neutrophils # Lymphocytes # Monocytes # PT INR D-Dimer Sodium Chloride Glucose POC Glucose (mg/dL) Troponin I 0.423 H* Albumin Procalcitonin 0.37 H Coronavirus (PCR) Detected A 08/05/21 08/05/21 02:57 13:10 WBC Neutrophils # Lymphocytes # Monocytes # PT INR D-Dimer Sodium Chloride Glucose POC Glucose (mg/dL) 142 H Troponin I 0.287 H* Albumin Procalcitonin Coronavirus (PCR) - Diagnostic Findings Chest x-ray: image reviewed Assessment and Plan Plan: 1 acute COVID 19 related pneumonia. Symptoms started approximately 7-10 days prior to presentation and the patient progressively got worse and presented to us with worsening shortness of breath and acute hypoxic arrest respiratory fail ure with bilateral COVID 19 related pulmonary infiltrates. The patient is not vaccinated for now. 2 acute hypoxic respiratory failure secondary to above, currently on 10 L of oxygen by nasal cannula 3 shortness of breath secondary to above 4 troponin leak, consider an acute non-STEMI. The patient has no acute ischemic changes on EKG 5 history of multiple CVAs with some residual visual deficits and difficult with gait and the patient walks with the help of a cane 6 history of coronary artery disease with previous history of myocardial infarction 7 hyperlipidemia 8 hypertension 9 hyponatremia, likely hypovolemic 10 acute leukocytosis with a white cell count of 21 with mildly elevated protein Hamilton level, consider underlying bacterial infection Plan Titrate oxygen flow to maintain a saturation above 90%. Currently on 10 L about 2 by nasal cannula Admit the patient to the hospital Decadron 6 mg IV every 24 hours The patient seems to be outside the window for Remdesivir treatment and symptoms started approximately 10 days ago Multivitamin treatment for COVID 19 including vitamin C and vitamin D and zinc Lovenox 40 mg subcu for DVT prophylaxis Normal saline at the rate of 75 mL an hour Recheck pro-calcitonin level in a.m. Monitor the LDH and the CRP Obtain a 2-D echocardiogram Start the patient empiric antibiotic coverage with IV Rocephin Check a urine analysis Reconcile home medications
[2021-08-05 16:45] LABS: C Reactive Protein 26.4 mg/dL (<1.0)
[2021-08-05] MEDS: SODIUM CHLORIDE 0.9% 1,000 ML IV SCH ×3 (18:12→21:49)
[2021-08-05] MEDS: ASCORBIC ACID 500 MG TAB PO SCH (21:47)
[2021-08-05] MEDS: ATORVASTATIN 40 MG TAB PO SCH (21:47)
[2021-08-05 22:26] LABS: Appearance,Urine Cloudy (Clear); Bacteria,Urine Many /hpf; Bilirubin,Urine Negative (Negative); Blood,Urine Negative (Negative); Color,Urine Yellow; Glucose,Urine (UA) Negative (Negative); Hyaline Casts,Urine 3 /lpf (0-2); Ketones,Urine 1+ (Negative); Leukocyte Esterase,Urine Negative (Negative); Mucus,Urine Rare /hpf; Nitrite,Urine Negative (Negative); PH, Urine 5.5 (5.0-8.0); Protein,Urine 1+ (Negative); RBC,Urine 1 /hpf (0-5); Specific Gravity,Urine 1.019 (1.001-1.035); Urobilinogen,Urine <2.0 mg/dL (<2.0); WBC,Urine 2 /hpf (0-5)
[2021-08-06] MEDS: SODIUM CHLORIDE 0.9% 1,000 ML IV SCH ×2 (06:39→15:52)
[2021-08-06] MEDS: ALBUTEROL HFA INHALER INHALATION PRN ×3 (07:33→16:47)
[2021-08-06] MEDS: METOPROLOL TARTRATE 50 MG TAB PO SCH ×2 (08:07→20:18)
[2021-08-06] MEDS: ASCORBIC ACID 500 MG TAB PO SCH ×2 (08:07→20:18)
[2021-08-06] MEDS: DEXAMETHASONE SOD PHOSPHATE 10 MG/ML 1 ML VIAL IVP SCH (08:07)
[2021-08-06] MEDS: ASPIRIN 81 MG PO SCH (08:07)
[2021-08-06] MEDS: FAMOTIDINE 20 MG TAB PO SCH (08:07)
[2021-08-06] MEDS: ENOXAPARIN 40 MG/0.4 ML SYRINGE SQ SCH (08:07)
[2021-08-06] MEDS: CHOLECALCIFEROL 125 MCG (5000 IU) TABLET PO SCH (08:07)
[2021-08-06] MEDS: lisinopriL 10 MG TAB PO SCH (08:07)
[2021-08-06] MEDS: ZINC SULFATE 220 MG CAP PO SCH (08:08)
--- NOTE | 2021-08-06 10:56 | ECHOF ---
Referral Reason:CAD, abn trop I MEASUREMENTS -------- HEIGHT: 177.8 cm WEIGHT: 96.2 kg BP: RVIDd: 2.4 cm (< 3.3) IVSd: 1.4 cm (0.6 - 1.1) LVIDd: 3.7 cm (3.9 - 5.3) LVPWd: 1.2 cm (0.6 - 1.1) IVSs: 2.2 cm LVIDs: 1.3 cm LVPWs: 2.4 cm Ao Diam: 3.4 cm (2.0 - 3.7) AV Cusp: 2.3 cm (1.5 - 2.6) LA Diam: 3.4 cm (2.7 - 3.8) MV EXCURSION: 18.048 mm (> 18.000) MV EF SLOPE: 99 mm/s (70 - 150) EPSS: 1.4 cm MV E Cody: 0.64 m/s MV DecT: 173 ms MV A Cody: 1.00 m/s MV E/A Ratio: 0.64 RAP: 5.00 mmHg RVSP: 14.63 mmHg FINDINGS -------- This was a technically adequate study. The left ventricular size is normal. Left ventricular wall thickness is normal. Overall left vent ricular systolic function is normal with, an EF between 55 - 60 %. The right ventricle is normal in size. The left atrial size is normal. The right atrial size is normal. Unable to visualize the septum. The aortic valve is trileaflet and appears structurally normal. The mitral valve is normal. There is trace mitral regurgitation. The tricuspid valve appears structurally normal. Trace tricuspid regurgitation present. Right moraima tricular systolic pressure is normal at < 35 mmHg. There is no pulmonic regurgitation present. The aortic root size is normal. IVC Not well visulized. There is no pericardial effusion. CONCLUSIONS -------- 1. The left ventricular size is normal. 2. Left ventricular wall thickness is normal. 3. Overall left ventricular systolic function is normal with, an EF between 55 - 60 %. 4. There is trace mitral regurgitation. 5. Trace tricuspid regurgitation present. 6. There is no pericardial effusion. [employer] OPERATOR: Leah Sotomayor RD
--- NOTE | 2021-08-06 11:41 | P.PN ---
Subjective Progress Note Date: 08/06/21 76-year-old male patient, who presented initially to [facility] and later on transferred to [facility] because of COVID 19 related pneumonia and shortness of breath. Both himself and his felt sick. Both of them are hospitalized for now. The patient started getting sick approximately over a week ago and he recalls his symptoms started approximately 10 days ago. He started having fatigue and tiredness and malaise in addition to some cough and shortness of breath. He ultimately became very weak. He presented to [facility] via EMS. His son noticed that the patient was quite ill and he called EMS and accordingly got transferred to the hospital. The patient has no history of any chronic lung disease. He is a nonsmoker for now. He has not received his vaccination for COVID 19. The patient had no nausea or vomiting no diarrhea. No altered mentation. He was quite hypoxic upon arrival and the patient is currently on 7 L of oxygen by nasal cannula to build a pulse ox of around 85-86%. The patient had a white cell count of 21.2, hemoglobin 14.5, his sodium was 128,. Troponin elevation of 0.4-3 and later on down to 0.287, his d-dimer is at 0.7, normal renal function, resident inflammatory markers are still pending including LDH and CRP. White cell count is at 21.2 with a hemoglobin of 14.5. Chest x-ray is consistent with bilateral pulmonary infiltrates consistent with COVID 19 related pneumonia. EKG showed sinus tachycardia, occasional premature supraventricular complexes and left atrial enlargement. No evidence of any acute ischemic changes. No reported chest pain. No previous history of DVT or pulmonary embolism. 08/06/2021, seeing the patient for a follow-up. The patient is still having labored breathing. The patient was on a high flow oxygen at 15 L and he was switched to 100% nonrebreather facemask. He feels more comfortable with a full facemask for now. He remains on Decadron. No new complaints otherwise. Focused on level was borderline elevated and the patient was given IV Rocephin as an empiric antibiotic coverage. Meanwhile, 2-D echocardiogram was done and was essentially within normal limits. He has a preserved LV function. His ejection fraction is around 55-60%. He does have mild mitral regurgitation. He has also trace tricuspid regurgitation. No significant valvular abnormalities. The patient has no other new complaints for now. He is currently on Decadron. I'm considering starting this patient on Baricitinib per protocol. He does not have clear indication for an underlying infection. He remains on anticoagulation with Lovenox 40 mg subcu for DVT prophylaxis. Objective - Vital Signs Vital signs: Vital Signs Temp 98 F 08/06/21 08:22 Pulse 102 H 08/06/21 08:22 Resp 26 H 08/06/21 08:23 BP 155/75 08/06/21 08:22 Pulse Ox 91 L 08/06/21 08:22 Intake & Output 08/05/21 08/06/21 08/06/21 18:59 06:59 18:59 Intake Total 620 Output Total 1200 Balance -1200 620 Weight 96.5 kg Intake: Oral 620 Output: Urine 1200 Other: Voiding Method Urinal Urinal - Exam GENERAL: The patient is alert and oriented x3, not in any acute distress. Morbidly obese currently on several liters of oxygen by nasal cannula. Mild respiratory distress. Overall, he is not using excessive muscle breathing. Is able to speak full sentences. Head exam was generally normal. There was no scleral icterus or corneal arcus. Mucous membranes were moist. HEENT: Pupils are round and equally reacting to light. EOMI. No scleral icterus. No conjunctival pallor. Normocephalic, atraumatic. No pharyngeal erythema. No thyromegaly. CARDIOVASCULAR: S1 and S2 present. No murmurs, rubs, or gallops. PULMONARY: expiratory wheezing and exam ABDOMEN: Soft, nontender, nondistended, normoactive bowel sounds. No palpable organomegaly. MUSCULOSKELETAL: No joint swelling or deformity. EXTREMITIES: No cyanosis, clubbing, or pedal edema. NEUROLOGICAL: Gross neurological examination did not reveal any new focal deficits. The patient has some chronic weakness on the left than the patient walks well with the help of a cane. No focal neurological deficit or any new onset neurological deficits. This is related to previous stroke. Examination of the skin revealed no evidence of significant rashes, suspicious appearing nevi or other concerning lesions. - Labs CBC & Chem 7: 08/04/21 21:29 08/04/21 21:29 Labs: Abnormal Lab Results - Last 24 Hours (Table) 1108/05/21 08/05/21 Range/Units 02:57 13:10 21:50 POC Glucose (mg/dL) 142 H (75-99) mg/dL Lactate Dehydrogenase 1043 H (313-618) U/L C-Reactive Protein 26.4 H (<1.0) mg/dL Urine Protein 1+ H (Negative) Urine Ketones 1+ H (Negative) Urine Bacteria Many H (None) /hpf Hyaline Casts 3 H (0-2) /lpf Urine Mucus Rare H (None) /hpf Assessment and Plan Plan: 1 acute COVID 19 related pneumonia. Symptoms started approximately 7-10 days prior to presentation and the patient progressively got worse and presented to us with worsening shortness of breath and acute hypoxic arrest respiratory failure with bilateral COVID 19 related pulmonary infiltrates. The patient is not vaccinated for now. 2 acute hypoxic respiratory failure secondary to above, currently on 10 L of oxygen by nasal cannula 100% nonrebreather facemask 3 shortness of breath secondary to above 4 troponin leak, consider an acute non-STEMI. The patient has no acute ischemic changes on EKG 5 history of multiple CVAs with some residual visual deficits and difficult with gait and the patient walks with the help of a cane 6 history of coronary artery disease with previous history of myocardial infarction 7 hyperlipidemia 8 hypertension 9 hyponatremia, likely hypovolemic 10 acute leukocytosis with a white cell count of 21 with mildly elevated protein Yeni level, consider underlying bacterial infection Plan The patient on 100% nonrebreather facemask Continue Decadron 6 mg IV every 24 hours Urine analysis was abnormal. Awaiting urine culture. Meanwhile continued IV Rocephin for now. Follow-up inflammatory markers May discontinue IV Rocephin Continue Lovenox for DVT prophylaxis Echocardiogram was noted Proceed with a CT angiogram We'll continue to follow.
[2021-08-06 12:22] LABS: Glucose,Whole Blood 235 mg/dL (75-99)
[2021-08-06] MEDS: INSULIN ASPART (NovoLOG) 100 UNIT/ML VIAL SQ SCH ×3 (12:23→20:18)
[2021-08-06 12:51] LABS: Basophils % (A) 0 %; Eosinophils % (A) 0 %; HCT 40.5 % (39.0-53.0); HGB 13.7 gm/dL (13.0-17.5); Lymphocytes # (A) 0.5 k/uL (1.0-4.8); Lymphocytes % (A) 2 %; MCHC 33.8 g/dL (31.0-37.0); MCV 88.6 fL (80.0-100.0); Mean Platelet Volume 7.7; Monocytes % (A) 4 %; Neutrophils # (A) 21.5 k/uL (1.3-7.7); Neutrophils % (A) 93 %; Platelet Count 445 k/uL (150-450); RBC 4.57 m/uL (4.30-5.90); RDW 12.8 % (11.5-15.5); WBC 23.2 k/uL (3.8-10.6)
--- NOTE | 2021-08-06 13:03 | CT ---
EXAMINATION TYPE: CT chest angio for PE DATE OF EXAM: 08/06/2021 COMPARISON: None HISTORY: Shortness of breath and cough. CT DLP: 482.2 mGycm CONTRAST: CT chest with contrast and 3D reconstruction with MIP imaging is performed with IV Contrast, patient injected with 100 mL of Isovue 370. Contrast-enhanced CT of the chest was performed through the course of the pulmonary arteries with lynn g and mediastinal window settings submitted. 3D reconstruction with MIP imaging was also performed. PULMONARY ARTERIES: The pulmonary arteries and their major tributaries are patent. I do not see robbie dence for sizable filling defect to suggest pulmonary embolic process. LUNGS: Diffuse airspace and groundglass infiltrates seen bilaterally. No evidence for atelectasis. No pulmonary nodule or mass is detected. No pleural effusion. MEDIASTINUM: Thoracic aorta is of normal caliber,however, evaluation is limited given timing of the contrast bolus. If there is concern for thoracic aortic pathology consider STERLING. Correlate clinicall y . The heart is not enlarged. No evidence for mediastinal mass. No mediastinal lymph nodes greater than 1cm. HILAR STRUCTURES: No evidence for mass. No hilar lymph nodes greater than 1 cm. UPPER ABDOMEN: No significant abnormality is seen. IMPRESSION: 1. No evidence for Pulmonary embolism at this time. 2. Diffuse bilateral pneumonia.
[2021-08-06 13:08] LABS: ALT 115 U/L (4-49); AST 119 U/L (17-59); African American GFR (CKD) >90 (>60 ml/min/1.73 sqM); Albumin 2.9 g/dL (3.5-5.0); Alkaline Phosphatase 86 U/L (38-126); Anion Gap 9 mmol/L; Blood Urea Nitrogen 19 mg/dL (9-20); Calcium 8.5 mg/dL (8.4-10.2); Carbon Dioxide 21 mmol/L (22-30); Chloride 101 mmol/L (98-107); Glucose 282 mg/dL (74-99); LDH 1086 U/L (313-618); Non-African American GFR(CKD) >90 (>60 ml/min/1.73 sqM); Sodium 131 mmol/L (137-145); Total Bilirubin 0.3 mg/dL (0.2-1.3); Total Protein 5.7 g/dL (6.3-8.2)
--- NOTE | 2021-08-06 13:38 | US ---
EXAMINATION TYPE: US venous doppler duplex LE DATE OF EXAM: 08/06/2021 1:20 PM COMPARISON: NONE CLINICAL HISTORY: shortness of breath, covid. Covid. On blood thinners. No leg swelling or pain. SIDE PERFORMED: Bilateral TECHNIQUE: The lower extremity deep venous system is examined utilizing real time linear array sonog mayra with graded compression, doppler sonography and color-flow sonography. VESSELS IMAGED: Common Femoral Vein Deep Femoral Vein Greater Saphenous Vein * Femoral Vein Popliteal Vein Small Saphenous Vein * Proximal Calf Veins (* superficial vessels) Right Leg: Negative for DVT Left Leg: Negative for DVT IMPRESSION: 1. Bilateral lower extremity ultrasound negative for deep venous thrombosis.
--- NOTE | 2021-08-06 15:49 | P.PN ---
Subjective Progress Note Date: 08/06/21 76-year-old pleasant male came in with complaints of shortness of breath and cough and patient is on 6 L of oxygen and found to have Covid 19 pneumonia chest x-ray is consistent with Covid 19. Patient is bit hyponatremic as well. Patient does have history of diabetes mellitus. Patient vaccinated for Covid 19 patient symptoms has been going on for about a week patient's d-dimer is around 0.7. Patient is presently on Lovenox for DVT prophylaxis. Patient denied any history of COPD or asthma patient last smoked about 52 years ago still has significant wheezing on exam. And has a significant generalized weakness and fatigue 08/06/2021 Patient is significant for the bed. He is on a 15 L nonrebreather with oxygen saturation in the low 90s. Blood pressure is 134/60, afebrile, heart rate 71, respirations are in the 20s. Patient's infraclavicular pulmonary services. He did have a CT injected completed today which demonstrates no evidence for PE, diffuse bilateral pneumonia. Venous Doppler negative for bilateral DVT. Labs today: white blood cell count 23.2, d-dimer 0.74, sodium 131 which is improving, potassium 4, AST 119, ALT 115, LDH 1086, CRP 18, albumin 2.9. Urinalysis negative for infection, 1+ protein 1+ ketones. Echocardiography shows an EF of 55-60% with preserved LV function, mild mitral and trace tricuspid regurgitation. ROS Constitutional: Denied any fatigue denied any fever. Cardio vascular: denied any chest pain, palpitations Gastrointestinal denied any nausea vomiting, diarrhea, reports ok appetite Pulmonary: Reports shortness of breath at rest, with exertion, reports mild intermittent cough Neurologic denied any new focal deficits All inpatient medications were reviewed and appropriate changes in these medications as dictated in the interval history and assessment and plan. PHYSICAL EXAMINATION: GENERAL: The patient is alert and oriented x3, not in any acute distress. Morbidly obese HEENT: Pupils are round and equally reacting to light. EOMI. No scleral icterus. No conjunctival pallor. Normocephalic, atraumatic. No pharyngeal erythema. No thyromegaly. CARDIOVASCULAR: S1 and S2 present. No murmurs, rubs, or gallops. PULMONARY: expiratory wheezing ABDOMEN: Soft, nontender, nondistended, normoactive bowel sounds. No palpable organomegaly. MUSCULOSKELETAL: No joint swelling or deformity. EXTREMITIES: No cyanosis, clubbing, or pedal edema. NEUROLOGICAL: Gross neurological examination did not reveal any new focal deficits. SKIN: No rashes. Assessment and plan -Acute hypoxic respiratory failure secondary to Covid 19 pneumonia, symptoms began about 7 to 10 days ago, he is on 15L NRB. 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 -Obesity -Hyperlipidemia -History of [place] -Coronary artery disease status post cardiac catheterization DVT prophylaxis: Lovenox GI Prophylaxis: Pepcid Plan Continue IV fluids, IV antibiotics Continue Decadron, covid vitamins Pending urine cultures Continue all other supportive care Repeat labs tomorrow Prognosis is guarded for this patient Objective - Vital Signs Vital signs: Vital Signs Temp 98 F 08/06/21 12:24 Pulse 71 08/06/21 12:24 Resp 17 08/06/21 12:24 BP 134/60 08/06/21 12:24 Pulse Ox 92 L 08/06/21 12:24 Intake & Output 08/05/21 08/06/21 08/06/21 18:59 06:59 18:59 Intake Total 620 Output Total 1200 400 Balance -1200 220 Weight 96.5 kg Intake: Oral 620 Output: Urine 1200 400 Other: Voiding Method Urinal Urinal - Labs CBC & Chem 7: 08/06/21 12:24 08/06/21 12:24 Labs: Abnormal Lab Results - Last 24 Hours (Table) 08/05/21 08/05/21 08/06/21 Range/Units 02:57 21:50 12:19 WBC (3.8-10.6) k/uL Neutrophils # (1.3-7.7) k/uL Lymphocytes # (1.0-4.8) k/uL D-Dimer (<0.60) mg/L FEU Sodium (137-145) mmol/L Carbon Dioxide (22-30) mmol/L Creatinine (0.66-1.25) mg/dL Glucose (74-99) mg/dL POC Glucose (mg/dL) 235 H (75-99) mg/dL AST (17-59) U/L ALT (4-49) U/L Lactate Dehydrogenase 1043 H (313-618) U/L C-Reactive Protein 26.4 H (<1.0) mg/dL Total Protein (6.3-8.2) g/dL Albumin (3.5-5.0) g/dL Urine Protein 1+ H (Negative) Urine Ketones 1+ H (Negative) Urine Bacteria Many H (None) /hpf Hyaline Casts 3 H (0-2) /lpf Urine Mucus Rare H (None) /hpf 08/06/21 08/06/21 08/06/21 Range/Units 12:24 12:24 12:24 WBC 23.2 H (3.8-10.6) k/uL Neutrophils # 21.5 H (1.3-7.7) k/uL Lymphocytes # 0.5 L (1.0-4.8) k/uL D-Dimer 0.74 H (<0.60) mg/L FEU Sodium 131 L (137-145) mmol/L Carbon Dioxide 21 L (22-30) mmol/L Creatinine 0.65 L (0.66-1.25) mg/dL Glucose 282 H (74-99) mg/dL POC Glucose (mg/dL) (75-99) mg/dL AST 119 H (17-59) U/L ALT 115 H (4-49) U/L Lactate Dehydrogenase 1086 H (313-618) U/L C-Reactive Protein 18.0 H (<1.0) mg/dL Total Protein 5.7 L (6.3-8.2) g/dL Albumin 2.9 L (3.5-5.0) g/dL Urine Protein (Negative) Urine Ketones (Negative) Urine Bacteria (None) /hpf Hyaline Casts (0-2) /lpf Urine Mucus (None) /hpf Assessment and Plan Time with Patient: Greater than 30
[2021-08-06 17:22] LABS: Glucose,Whole Blood 172 mg/dL (75-99)
[2021-08-06 20:04] LABS: Glucose,Whole Blood 225 mg/dL (75-99)
[2021-08-06] MEDS: ATORVASTATIN 40 MG TAB PO SCH (20:18)
[2021-08-07] MEDS: ALBUTEROL HFA INHALER INHALATION PRN ×4 (00:20→20:57)
[2021-08-07 06:17] LABS: Glucose,Whole Blood 114 mg/dL (75-99)
[2021-08-07] MEDS: INSULIN ASPART (NovoLOG) 100 UNIT/ML VIAL SQ SCH ×4 (06:22→20:43)
[2021-08-07] MEDS: SODIUM CHLORIDE 0.9% 1,000 ML IV SCH ×2 (06:23→13:02)
[2021-08-07 07:45] LABS: Basophils % (A) 0 %; Eosinophils % (A) 0 %; HCT 38.1 % (39.0-53.0); HGB 13.1 gm/dL (13.0-17.5); Lymphocytes # (A) 0.6 k/uL (1.0-4.8); Lymphocytes % (A) 4 %; MCH 30.6 pg (25.0-35.0); MCHC 34.4 g/dL (31.0-37.0); MCV 89.1 fL (80.0-100.0); Mean Platelet Volume 7.4; Monocytes # (A) 0.9 k/uL (0-1.0); Monocytes % (A) 5 %; Neutrophils # (A) 14.9 k/uL (1.3-7.7); Neutrophils % (A) 90 %; Platelet Count 401 k/uL (150-450); RBC 4.28 m/uL (4.30-5.90); RDW 12.9 % (11.5-15.5); WBC 16.6 k/uL (3.8-10.6)
[2021-08-07 07:56] LABS: ALT 109 U/L (4-49); AST 76 U/L (17-59); African American GFR (CKD) >90 (>60 ml/min/1.73 sqM); Albumin 2.6 g/dL (3.5-5.0); Alkaline Phosphatase 94 U/L (38-126); Anion Gap 7 mmol/L; Blood Urea Nitrogen 15 mg/dL (9-20); Calcium 8.4 mg/dL (8.4-10.2); Carbon Dioxide 27 mmol/L (22-30); Chloride 102 mmol/L (98-107); Glucose 115 mg/dL (74-99); LDH 1121 U/L (313-618); Non-African American GFR(CKD) >90 (>60 ml/min/1.73 sqM); Potassium 4.1 mmol/L (3.5-5.1); Sodium 136 mmol/L (137-145); Total Bilirubin 0.4 mg/dL (0.2-1.3); Total Protein 5.4 g/dL (6.3-8.2)
[2021-08-07 09:37] LABS: C Reactive Protein 14.4 mg/dL (<1.0)
[2021-08-07] MEDS: DEXAMETHASONE SOD PHOSPHATE 10 MG/ML 1 ML VIAL IVP SCH (09:47)
[2021-08-07] MEDS: FAMOTIDINE 20 MG TAB PO SCH (09:47)
[2021-08-07] MEDS: ZINC SULFATE 220 MG CAP PO SCH (09:47)
[2021-08-07] MEDS: CHOLECALCIFEROL 125 MCG (5000 IU) TABLET PO SCH (09:47)
[2021-08-07] MEDS: ENOXAPARIN 40 MG/0.4 ML SYRINGE SQ SCH (09:47)
[2021-08-07] MEDS: lisinopriL 10 MG TAB PO SCH (09:48)
[2021-08-07] MEDS: ASCORBIC ACID 500 MG TAB PO SCH ×2 (09:48→20:43)
[2021-08-07] MEDS: ASPIRIN 81 MG PO SCH (09:48)
[2021-08-07] MEDS: METOPROLOL TARTRATE 50 MG TAB PO SCH ×2 (09:48→20:43)
[2021-08-07 11:53] LABS: Glucose,Whole Blood 168 mg/dL (75-99)
--- NOTE | 2021-08-07 14:54 | P.PN ---
Subjective Progress Note Date: 08/07/21 76-year-old pleasant male came in with complaints of shortness of breath and cough and patient is on 6 L of oxygen and found to have Covid 19 pneumonia chest x-ray is consistent with Covid 19. Patient is bit hyponatremic as well. Patient does have history of diabetes mellitus. Patient vaccinated for Covid 19 patient symptoms has been going on for about a week patient's d-dimer is around 0.7. Patient is presently on Lovenox for DVT prophylaxis. Patient denied any history of COPD or asthma patient last smoked about 52 years ago still has significant wheezing on exam. And has a significant generalized weakness and fatigue 08/06/2021 Patient is significant for the bed. He is on a 15 L nonrebreather with oxygen saturation in the low 90s. Blood pressure is 134/60, afebrile, heart rate 71, respirations are in the 20s. Patient's infraclavicular pulmonary services. He did have a CTA completed today which demonstrates no evidence for PE, diffuse bilateral pneumonia. Venous Doppler negative for bilateral DVT. Labs today: white blood cell count 23.2, d-dimer 0.74, sodium 131 which is improving, potassium 4, AST 119, ALT 115, LDH 1086, CRP 18, albumin 2.9. Urinalysis negative for infection, 1+ protein 1+ ketones. Echocardiography shows an EF of 55-60% with preserved LV function, mild mitral and trace tricuspid regurgitation. 08/07/21 Patient is evaluated today resting at the bedside. He is 15L high flow nasal cannula as well as a 15 L nonrebreather with oxygen saturation of 93%. Heart rate is tachycardic in the 110s, afebrile, blood pressure 143/77. Labs today show white count 16.6, d-dimer 2.16, sodium 136, AST ALT elevated at 76 and 109, LDH 1121, CRP 14.4. Pro-calcitonin is 0.20. Patient is being followed closely pulmonary services. He is on IV Rocephin empirically as well as Decadron IV and Covid vitamins. ROS Constitutional: Denied any fatigue denied any fever. Cardio vascular: denied any chest pain, palpitations Gastrointestinal denied any nausea vomiting, diarrhea, reports ok appetite Pulmonary: Reports shortness of breath at rest, with exertion, reports mild intermittent cough Neurologic denied any new focal deficits All inpatient medications were reviewed and appropriate changes in these medications as dictated in the interval history and assessment and plan. PHYSICAL EXAMINATION: GENERAL: The patient is alert and oriented x3, not in any acute distress. Morbidly obese HEENT: Pupils are round and equally reacting to light. EOMI. No scleral icterus. No conjunctival pallor. Normocephalic, atraumatic. No pharyngeal erythema. No thyromegaly. CARDIOVASCULAR: S1 and S2 present. No murmurs, rubs, or gallops. PULMONARY: expiratory wheezing ABDOMEN: Soft, nontender, nondistended, normoactive bowel sounds. No palpable organomegaly. MUSCULOSKELETAL: No joint swelling or deformity. EXTREMITIES: No cyanosis, clubbing, or pedal edema. NEUROLOGICAL: Gross neurological examination did not reveal any new focal deficits. SKIN: No rashes. Assessment and plan -Acute hypoxic respiratory failure secondary to Covid 19 pneumonia, symptoms be cecil about 7 to 10 days ago, he is on 15L NRB and 15L HF NC. 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 -Obesity -Hyperlipidemia -History of [place] -Coronary artery disease status post cardiac catheterization DVT prophylaxis: Lovenox GI Prophylaxis: Pepcid Plan Continue IV fluids, IV antibiotics Continue Decadron, covid vitamins Pending urine culture and blood cultures Continue all other supportive care Repeat labs tomorrow Prognosis is guarded for this patient Objective - Vital Signs Vital signs: Vital Signs Temp 98.4 F 08/07/21 04:00 Pulse 93 08/07/21 04:00 Resp 26 H 08/07/21 04:00 BP 166/82 08/07/21 04:00 Pulse Ox 91 L 08/07/21 04:00 Intake & Output 08/06/21 08/07/21 08/07/21 18:59 06:59 18:59 Intake Total 800 Output Total 800 700 Balance 0 -700 Intake: Oral 800 Output: Urine 800 700 Other: Voiding Method Urinal Urinal # Bowel Movements 1 - Labs CBC & Chem 7: 08/07/21 07:13 08/07/21 07:13 Labs: Abnormal Lab Results - Last 24 Hours (Table) 08/06/21 08/06/21 08/06/21 Range/Units 12:19 12:24 12:24 WBC 23.2 H (3.8-10.6) k/uL RBC (4.30-5.90) m/uL Hct (39.0-53.0) % Neutrophils # 21.5 H (1.3-7.7) k/uL Lymphocytes # 0.5 L (1.0-4.8) k/uL D-Dimer (<0.60) mg/L FEU Sodium 131 L (137-145) mmol/L Carbon Dioxide 21 L (22-30) mmol/L Creatinine 0.65 L (0.66-1.25) mg/dL Glucose 282 H (74-99) mg/dL POC Glucose (mg/dL) 235 H (75-99) mg/dL AST 119 H (17-59) U/L ALT 115 H (4-49) U/L Lactate Dehydrogenase 1086 H (313-618) U/L C-Reactive Protein 18.0 H (<1.0) mg/dL Total Protein 5.7 L (6.3-8.2) g/dL Albumin 2.9 L (3.5-5.0) g/dL 08/06/21 08/06/21 08/06/21 Range/Units 12:24 17:20 19:54 WBC (3.8-10.6) k/uL RBC (4.30-5.90) m/uL Hct (39.0-53.0) % Neutrophils # (1.3-7.7) k/uL Lymphocytes # (1.0-4.8) k/uL D-Dimer 0.74 H (<0.60) mg/L FEU Sodium (137-145) mmol/L Carbon Dioxide (22-30) mmol/L Creatinine (0.66-1.25) mg/dL Glucose (74-99) mg/dL POC Glucose (mg/dL) 172 H 225 H (75-99) mg/dL AST (17-59) U/L ALT (4-49) U/L Lactate Dehydrogenase (313-618) U/L C-Reactive Protein (<1.0) mg/dL Total Protein (6.3-8.2) g/dL Albumin (3.5-5.0) g/dL 08/07/21 08/07/21 08/07/21 Range/Units 06:00 07:13 07:13 WBC (3.8-10.6) k/uL RBC (4.30-5.90) m/uL Hct (39.0-53.0) % Neutrophils # (1.3-7.7) k/uL Lymphocytes # (1.0-4.8) k/uL D-Dimer 2.16 H (<0.60) mg/L FEU Sodium 136 L (137-145) mmol/L Carbon Dioxide (22-30) mmol/L Creatinine (0.66-1.25) mg/dL Glucose 115 H (74-99) mg/dL POC Glucose (mg/dL) 114 H (75-99) mg/dL AST 76 H (17-59) U/L ALT 109 H (4-49) U/L Lactate Dehydrogenase 1121 H (313-618) U/L C-Reactive Protein (<1.0) mg/dL Total Protein 5.4 L (6.3-8.2) g/dL Albumin 2.6 L (3.5-5.0) g/dL 08/07/21 Range/Units 07:13 WBC 16.6 H (3.8-10.6) k/uL RBC 4.28 L (4.30-5.90) m/uL Hct 38.1 L (39.0-53.0) % Neutrophils # 14.9 H (1.3-7.7) k/uL Lymphocytes # 0.6 L (1.0-4.8) k/uL D-Dimer (<0.60) mg/L FEU Sodium (137-145) mmol/L Carbon Dioxide (22-30) mmol/L Creatinine (0.66-1.25) mg/dL Glucose (74-99) mg/dL POC Glucose (mg/dL) (75-99) mg/dL AST (17-59) U/L ALT (4-49) U/L Lactate Dehydrogenase (313-618) U/L C-Reactive Protein (<1.0) mg/dL Total Protein (6.3-8.2) g/dL Albumin (3.5-5.0) g/dL Microbiology - Last 24 Hours (Table) 08/06/21 15:37 Urine Culture - Preliminary Urine,Voided 08/05/21 18:31 Blood Culture - Preliminary Blood No Growth after 24 hours
[2021-08-07 17:32] LABS: Glucose,Whole Blood 198 mg/dL (75-99)
--- NOTE | 2021-08-07 17:55 | P.PN ---
Subjective Progress Note Date: 08/07/21 76-year-old male patient, who presented initially to [facility] and later on transferred to [facility] because of COVID 19 related pneumonia and shortness of breath. Both himself and his felt sick. Both of them are hospitalized for now. The patient started getting sick approximately over a week ago and he recalls his symptoms started approximately 10 days ago. He started having fatigue and tiredness and malaise in addition to some cough and shortness of breath. He ultimately became very weak. He presented to [facility] via EMS. His son noticed that the patient was quite ill and he called EMS and accordingly got transferred to the hospital. The patient has no history of any chronic lung disease. He is a nonsmoker for now. He has not received his vaccination for COVID 19. The patient had no nausea or vomiting no diarrhea. No altered mentation. He was quite hypoxic upon arrival and the patient is currently on 7 L of oxygen by nasal cannula to build a pulse ox of around 85-86%. The patient had a white cell count of 21.2, hemoglobin 14.5, his sodium was 128,. Troponin elevation of 0.4-3 and later on down to 0.287, his d-dimer is at 0.7, normal renal function, resident inflammatory markers are still pending including LDH and CRP. White cell count is at 21.2 with a hemoglobin of 14.5. Chest x-ray is consistent with bilateral pulmonary infiltrates consistent with COVID 19 related pneumonia. EKG showed sinus tachycardia, occasional premature supraventricular complexes and left atrial enlargement. No evidence of any acute ischemic changes. No reported chest pain. No previous history of DVT or pulmonary embolism. 08/06/2021, seeing the patient for a follow-up. The patient is still having labored breathing. The patient was on a high flow oxygen at 15 L and he was switched to 100% nonrebreather facemask. He feels more comfortable with a full facemask for now. He remains on Decadron. No new complaints otherwise. Focused on level was borderline elevated and the patient was given IV Rocephin as an empiric antibiotic coverage. Meanwhile, 2-D echocardiogram was done and was essentially within normal limits. He has a preserved LV function. His ejection fraction is around 55-60%. He does have mild mitral regurgitation. He has also trace tricuspid regurgitation. No significant valvular abnormalities. The patient has no other new complaints for now. He is currently on Decadron. I'm considering starting this patient on Baricitinib per protocol. He does not have clear indication for an underlying infection. He remains on anticoagulation with Lovenox 40 mg subcu for DVT prophylaxis. 08/07/2021, the patient is being seen for a follow-up. He remains on 100% on a beta facemask along with 15 L about 2 by nasal cannula. He feels better on today's evaluation. He states that he is less short of breath. Nevertheless, the patient continues to be hypoxic. The patient is also on Decadron 6 mg IV every 24 hours. There was suspicion for an underlying infection. The patient did have and the patient had a white cell count of 16.6. The white cell count was as high as 23. He is on empiric antibiotic coverage with IV Rocephin. Cultures are negative. We'll monitor the white count for now. The d-dimer today's at 2.1. His LDH level was 1121 and his CRP is 14.4. The patient's focused on her level dropped down to 0.2 from a baseline of 0.37. The Doppler of the lower extremity was negative. The CT angiogram showed no evidence of any pulmonary embolism. Echocardiogram was consistent with normal LV function. I'm still considering starting the patient on Baricitinib at a later stage once the cultures are essentially finalized. Objective - Vital Signs Vital signs: Vital Signs Temp 98.1 F 08/07/21 16:23 Pulse 84 08/07/21 16:23 Resp 17 08/07/21 16:23 BP 166/83 08/07/21 16:23 Pulse Ox 92 L 08/07/21 16:23 Intake & Output 08/06/21 08/07/21 08/07/21 18:59 06:59 18:59 Intake Total 800 2150 Output Total 800 700 875 Balance 0 -700 1275 Intake: IV 950 Sodium Chloride 0.9% 1, 900 000 ml @ 20 mls/hr IV . Q24H STEPHIE Rx#:[id number] cefTRIAXone 1 gm In 50 Sodium Chloride 0.9% 50 ml @ 100 mls/hr IVPB Q24HR STEPHIE Rx#:[id number] Oral 800 1200 Output: Urine 800 700 875 Other: Voiding Method Urinal Urinal Urinal # Voids 1 # Bowel Movements 1 3 - Exam GENERAL: The patient is alert and oriented x3, not in any acute distress. Morbidly obese currently on several liters of oxygen by nasal cannula. Mild respiratory distress. Overall, he is not using excessive muscle breathing. Is able to speak full sentences. Head exam was generally normal. There was no scleral icterus or corneal arcus. Mucous membranes were moist. HEENT: Pupils are round and equally reacting to light. EOMI. No scleral icterus. No conjunctival pallor. Normocephalic, atraumatic. No pharyngeal erythema. No thyromegaly. CARDIOVASCULAR: S1 and S2 present. No murmurs, rubs, or gallops. PULMONARY: expiratory wheezing and exam ABDOMEN: Soft, nontender, nondistended, normoactive bowel sounds. No palpable organomegaly. MUSCULOSKELETAL: No joint swelling or deformity. EXTREMITIES: No cyanosis, clubbing, or pedal edema. NEUROLOGICAL: Gross neurological examination did not reveal any new focal deficits. The patient has some chronic weakness on the left than the patient wa lks well with the help of a cane. No focal neurological deficit or any new onset neurological deficits. This is related to previous stroke. Examination of the skin revealed no evidence of significant rashes, suspicious appearing nevi or other concerning lesions. - Labs CBC & Chem 7: 08/07/21 07:13 08/07/21 07:13 Labs: Abnormal Lab Results - Last 24 Hours (Table) 08/06/21 08/07/21 08/07/21 Range/Units 19:54 06:00 07:13 WBC (3.8-10.6) k/uL RBC (4.30-5.90) m/uL Hct (39.0-53.0) % Neutrophils # (1.3-7.7) k/uL Lymphocytes # (1.0-4.8) k/uL D-Dimer (<0.60) mg/L FEU Sodium (137-145) mmol/L Glucose (74-99) mg/dL POC Glucose (mg/dL) 225 H 114 H (75-99) mg/dL AST (17-59) U/L ALT (4-49) U/L Lactate Dehydrogenase (313-618) U/L C-Reactive Protein (<1.0) mg/dL Total Protein (6.3-8.2) g/dL Albumin (3.5-5.0) g/dL Procalcitonin 0.20 H (0.02-0.09) ng/mL 08/07/21 08/07/21 08/07/21 Range/Units 07:13 07:13 07:13 WBC 16.6 H (3.8-10.6) k/uL RBC 4.28 L (4.30-5.90) m/uL Hct 38.1 L (39.0-53.0) % Neutrophils # 14.9 H (1.3-7.7) k/uL Lymphocytes # 0.6 L (1.0-4.8) k/uL D-Dimer 2.16 H (<0.60) mg/L FEU Sodium 136 L (137-145) mmol/L Glucose 115 H (74-99) mg/dL POC Glucose (mg/dL) (75-99) mg/dL AST 76 H (17-59) U/L ALT 109 H (4-49) U/L Lactate Dehydrogenase 1121 H (313-618) U/L C-Reactive Protein 14.4 H (<1.0) mg/dL Total Protein 5.4 L (6.3-8.2) g/dL Albumin 2.6 L (3.5-5.0) g/dL Procalcitonin (0.02-0.09) ng/mL 08/07/21 08/07/21 Range/Units 11:50 17:31 WBC (3.8-10.6) k/uL RBC (4.30-5.90) m/uL Hct (39.0-53.0) % Neutrophils # (1.3-7.7) k/uL Lymphocytes # (1.0-4.8) k/uL D-Dimer (<0.60) mg/L FEU Sodium (137-145) mmol/L Glucose (74-99) mg/dL POC Glucose (mg/dL) 168 H 198 H (75-99) mg/dL AST (17-59) U/L ALT (4-49) U/L Lactate Dehydrogenase (313-618) U/L C-Reactive Protein (<1.0) mg/dL Total Protein (6.3-8.2) g/dL Albumin (3.5-5.0) g/dL Procalcitonin (0.02-0.09) ng/mL Microbiology - Last 24 Hours (Table) 08/06/21 15:37 Urine Culture - Final Urine,Voided 08/05/21 18:31 Blood Culture - Preliminary Blood No Growth after 24 hours Assessment and Plan Plan: 1 acute COVID 19 related pneumonia. Symptoms started approximately 7-10 days prior to presentation and the patient progressively got worse and presented to us with worsening shortness of breath and acute hypoxic arrest respiratory failure with bilateral COVID 19 related pulmonary infiltrates. The patient is not vaccinated for now. The CT angiogram was consistent with pneumonia. There was no evidence of any pulmonary embolism. Doppler of the lower extremity is been negative. 2 acute hypoxic respiratory failure secondary to above, currently on 10 L of oxygen by nasal cannula 100% nonrebreather facemask 3 shortness of breath secondary to above 4 troponin leak, consider an acute non-STEMI. The patient has no acute ischemic changes on EKG 5 history of multiple CVAs with some residual visual deficits and difficult with gait and the patient walks with the help of a cane 6 history of coronary artery disease with previous history of myocardial infarction 7 hyperlipidemia 8 hypertension 9 hyponatremia, likely hypovolemic, improved and sodium level is normalized 10 acute leukocytosis under investigation for now Plan The patient on 100% nonrebreather facemask, respiration is still borderline and the patient continues to been 100% on facemask. Inflammatory markers including LDH continues to be elevated. Continue Decadron 6 mg IV every 24 hours Awaiting final cultures. The white cell count remains elevated Follow-up inflammatory markers May discontinue IV Rocephin Continue Lovenox for DVT prophylaxis Echocardiogram was noted We'll continue to follow.
[2021-08-07 20:36] LABS: Glucose,Whole Blood 236 mg/dL (75-99)
[2021-08-07] MEDS: ATORVASTATIN 40 MG TAB PO SCH (20:42)
[2021-08-08 06:16] LABS: Glucose,Whole Blood 106 mg/dL (75-99)
[2021-08-08] MEDS: INSULIN ASPART (NovoLOG) 100 UNIT/ML VIAL SQ SCH ×4 (06:17→21:22)
--- NOTE | 2021-08-08 07:03 | XR ---
EXAMINATION TYPE: XR chest 1V portable DATE OF EXAM: 08/08/2021 CLINICAL HISTORY: Difficulty breathing and covid. TECHNIQUE: Single AP portable semiupright view of the chest is obtained. COMPARISON: Chest x-ray from 08/04/2021. CTA chest 2 days ago. FINDINGS: Bilateral multifocal and confluent opacities redemonstrated greater in the left lung. Card iac silhouette size is stable and mildly enlarged. Osseous structures are intact. Overlying EKG leads noted currently. IMPRESSION: Bilateral multifocal and confluent opacities greater in the left lung redemonstrated cons istent with known covid-19 infection, no significant change from most recent CT study.
[2021-08-08] MEDS: ENOXAPARIN 40 MG/0.4 ML SYRINGE SQ SCH ×2 (08:46→21:22)
[2021-08-08] MEDS: DEXAMETHASONE SOD PHOSPHATE 10 MG/ML 1 ML VIAL IVP SCH (08:46)
[2021-08-08] MEDS: ASPIRIN 81 MG PO SCH (08:47)
[2021-08-08] MEDS: CHOLECALCIFEROL 125 MCG (5000 IU) TABLET PO SCH (08:47)
[2021-08-08] MEDS: ZINC SULFATE 220 MG CAP PO SCH (08:47)
[2021-08-08] MEDS: ASCORBIC ACID 500 MG TAB PO SCH ×2 (08:47→21:22)
[2021-08-08] MEDS: METOPROLOL TARTRATE 50 MG TAB PO SCH ×2 (08:47→21:21)
[2021-08-08] MEDS: FAMOTIDINE 20 MG TAB PO SCH (08:47)
[2021-08-08] MEDS: lisinopriL 10 MG TAB PO SCH (08:47)
[2021-08-08] MEDS: ALBUTEROL HFA INHALER INHALATION PRN ×4 (09:35→20:00)
[2021-08-08 11:15] LABS: African American GFR (CKD) >90 (>60 ml/min/1.73 sqM); Anion Gap 10 mmol/L; Blood Urea Nitrogen 18 mg/dL (9-20); Calcium 8.4 mg/dL (8.4-10.2); Carbon Dioxide 24 mmol/L (22-30); Chloride 100 mmol/L (98-107); Glucose 190 mg/dL (74-99); LDH 1223 U/L (313-618); Non-African American GFR(CKD) >90 (>60 ml/min/1.73 sqM); Potassium 4.2 mmol/L (3.5-5.1); Sodium 134 mmol/L (137-145)
[2021-08-08 11:51] LABS: Glucose,Whole Blood 160 mg/dL (75-99)
--- NOTE | 2021-08-08 16:16 | P.PN ---
Subjective Progress Note Date: 08/08/21 Principal diagnosis: 76-year-old male patient, who presented initially to [facility] and later on transferred to [facility] because of COVID 19 related pneumonia and shortness of breath. Both himself and his felt sick. Both of them are hospitalized for now. The patient started getting sick approximately over a week ago and he recalls his symptoms started approximately 10 days ago. He started having fatigue and tiredness and malaise in addition to some cough and shortness of breath. He ultimately became very weak. He presented to [facility] via EMS. His son noticed that the patient was quite ill and he called EMS and accordingly got transferred to the hospital. The patient has no history of any chronic lung disease. He is a nonsmoker for now. He has not received his vaccination for COVID 19. The patient had no nausea or vomiting no diarrhea. No altered mentation. He was quite hypoxic upon arrival and the patient is currently on 7 L of oxygen by nasal cannula to build a pulse ox of around 85-86%. The patient had a white cell count of 21.2, hemoglobin 14.5, his sodium was 128,. Troponin elevation of 0.4-3 and later on down to 0.287, his d-dimer is at 0.7, normal renal function, resident inflammatory markers are still pending including LDH and CRP. White cell count is at 21.2 with a hemoglobin of 14.5. Chest x-ray is consistent with bilateral pulmonary infiltrates consistent with COVID 19 related pneumonia. EKG showed sinus tachycardia, occasional premature supraventricular complexes and left atrial enlargement. No evidence of any acute ischemic changes. No reported chest pain. No previous history of DVT or pulmonary embolism. 08/06/2021, seeing the patient for a follow-up. The patient is still having la bored breathing. The patient was on a high flow oxygen at 15 L and he was switched to 100% nonrebreather facemask. He feels more comfortable with a full facemask for now. He remains on Decadron. No new complaints otherwise. Focused on level was borderline elevated and the patient was given IV Rocephin as an empiric antibiotic coverage. Meanwhile, 2-D echocardiogram was done and was essentially within normal limits. He has a preserved LV function. His ejection fraction is around 55-60%. He does have mild mitral regurgitation. He has also trace tricuspid regurgitation. No significant valvular abnormalities. The patient has no other new complaints for now. He is currently on Decadron. I'm considering starting this patient on Baricitinib per protocol. He does not have clear indication for an underlying infection. He remains on anticoagulation with Lovenox 40 mg subcu for DVT prophylaxis. 08/07/2021, the patient is being seen for a follow-up. He remains on 100% on a beta facemask along with 15 L about 2 by nasal cannula. He feels better on today's evaluation. He states that he is less short of breath. Nevertheless, the patient continues to be hypoxic. The patient is also on Decadron 6 mg IV every 24 hours. There was suspicion for an underlying infection. The patient did have and the patient had a white cell count of 16.6. The white cell count was as high as 23. He is on empiric antibiotic coverage with IV Rocephin. Cultures are negative. We'll monitor the white count for now. The d-dimer today's at 2.1. His LDH level was 1121 and his CRP is 14.4. The patient's focused on her level dropped down to 0.2 from a baseline of 0.37. The Doppler of the lower extremity was negative. The CT angiogram showed no evidence of any pulmonary embolism. Echocardiogram was consistent with normal LV function. I'm still considering starting the patient on Baricitinib at a later stage once the cultures are essentially finalized. On 08/08/2021 patient seen in follow-up on selective care unit, patient is on 15 L high flow nasal cannula and her percent nonrebreather mask, and his pulse ox is 92%. He is short of breath with exertion, and conversation, but no acute distress was noted, his been get not been using the bedside commode, tolerates it fairly well. Afebrile, hemodynamically stable. Today's chest x-ray has been reviewed showing bilateral multifocal and confluent opacities greater on the left consistent with known history of COVID-19 infection with no significant change. Today's lab have been reviewed, his d-dimer is 5.7, increased from ye sterday's value, sodium is 134, and respiratory electrolytes are within normal limits, BUN is 18 creatinine 0.69. CRP is 21, his LDH has increased to 1223. Urinalysis a few days ago showed 1+ ketones, +1 protein, and many bacteria, patient was treated for possibility of urinary tract infection with Rocephin, his repeat pro calcitonin came back lower at 0.20, and urine culture showed no growth. Rocephin will be discontinued. Culture showed no growth. Lung sounds reveal diffuse bilateral crackles. Patient appears to be mildly fatigued, but no acute distress. Objective - Vital Signs Vital signs: Vital Signs Temp 98.5 F 08/08/21 03:49 Pulse 74 08/08/21 12:00 Resp 16 08/08/21 12:00 BP 147/81 08/08/21 12:00 Pulse Ox 94 L 08/08/21 12:00 Intake & Output 08/07/21 08/08/21 08/08/21 18:59 06:59 18:59 Intake Total 2390 480 Output Total 875 Balance 1515 480 Weight 96 kg Intake: IV 950 Sodium Chloride 0.9% 1, 900 000 ml @ 20 mls/hr IV . Q24H STEPHIE Rx#:[id number] cefTRIAXone 1 gm In 50 Sodium Chloride 0.9% 50 ml @ 100 mls/hr IVPB Q24HR STEPHIE Rx#:[id number] Oral 1440 480 Output: Urine 875 Other: Voiding Method Urinal Urinal Urinal # Voids 1 1 1 # Bowel Movements 3 - Exam GENERAL EXAM: Alert, very pleasant, 76-year-old white male, currently on 15 L per high flow nasal cannula and on her percent nonrebreather mask, with pulse ox of 92-95%, comfortable in no apparent distress. HEAD: Normocephalic/atraumatic. EYES: Normal reaction of pupils, equal size. Conjunctiva pink, sclera white. NOSE: Clear with pink turbinates. THROAT: No erythema or exudates. NECK: No masses, no JVD, no thyroid enlargement, no adenopathy. CHEST: No chest wall deformity. Symmetrical expansion. LUNGS: Equal air entry with bilateral crackles CVS: Regular rate and rhythm, normal S1 and S2, no gallops, no murmurs, no rubs ABDOMEN: Soft, nontender. No hepatosplenomegaly, normal bowel sounds, no guarding or rigidity. EXTREMITIES: No clubbing, no edema, no cyanosis, 2+ pulses and upper and lower extremities. MUSCULOSKELETAL: Muscle strength and tone normal. SPINE: No scoliosis or deformity SKIN: No rashes CENTRAL NERVOUS SYSTEM: Alert and oriented -3. No focal deficits, tone is normal in all 4 extremities. PSYCHIATRIC: Alert and oriented -3. Appropriate affect. Intact judgment and insight. - Labs CBC & Chem 7: 08/07/21 07:13 08/08/21 09:30 Labs: Abnormal Lab Results - Last 24 Hours (Table) 08/07/21 08/07/21 08/08/21 Range/Units 17:31 20:27 06:14 D-Dimer (<0.60) mg/L FEU Sodium (137-145) mmol/L Glucose (74-99) mg/dL POC Glucose (mg/dL) 198 H 236 H 106 H (75-99) mg/dL Lactate Dehydrogenase (313-618) U/L C-Reactive Protein (<1.0) mg/dL 08/08/21 08/08/21 08/08/21 Range/Units 09:30 09:30 11:48 D-Dimer 5.70 H (<0.60) mg/L FEU Sodium 134 L (137-145) mmol/L Glucose 190 H (74-99) mg/dL POC Glucose (mg/dL) 160 H (75-99) mg/dL Lactate Dehydrogenase 1223 H (313-618) U/L C-Reactive Protein 21.0 H (<1.0) mg/dL Microbiology - Last 24 Hours (Table) 08/05/21 18:31 Blood Culture - Preliminary Blood No Growth after 48 hours 08/06/21 15:37 Urine Culture - Final Urine,Voided Assessment and Plan Plan: #1. acute COVID 19 related pneumonia. Symptoms started approximately 7-10 days prior to presentation and the patient progressively got worse and presented to us with worsening shortness of breath and acute hypoxic arrest respiratory failure with bilateral COVID 19 related pulmonary infiltrates. The patient is not vaccinated for now. The CT angiogram was consistent with pneumonia. There was no evidence of any pulmonary embolism. Doppler of the lower extremity is been negative. #2. acute hypoxic respiratory failure secondary to above, has progressed since admission, and currently patient is on 15 L per high flow nasal cannula and her percent nonrebreather mask, with pulse ox of 92%, will be started on Baricitinib today on 08/08/2021 #3. shortness of breath secondary to above #4. troponin leak, consider an acute non-STEMI. The patient has no acute ischemic changes on EKG #5. 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 history of coronary artery disease with previous history of myocardial infarction #7. hyperlipidemia #8. hypertension #9. hyponatremia, likely hypovolemic, improved and sodium level is normalized #10. acute leukocytosis under investigation for now Plan: Patient continues on high flow oxygen at 15 L and 100% nonrebreather mask We will escalate his treatment and start him on Baricitinib Continue Decadron Continue prophylactic Lovenox Continue GI prophylaxis Blood sugar monitoring, and sliding scale NovoLog Continue close monitoring for worsening dyspnea and hypoxia Dr. Sands spoke to the patient's son Azam on the phone today and updated him on patient's condition I performed a history & physical examination of the patient and discussed their management with my nurse practitioner, Cheryl Palencia. I reviewed the nurse practitioner's note and agree with the documented findings and plan of care. Lung sounds are positive for basilar rales throughout the lung inman. The findings and the impression was discussed with the patient. I attest to the documentation by the nurse practitioner. Time with Patient: Less than 30
[2021-08-08 17:01] LABS: Glucose,Whole Blood 280 mg/dL (75-99)
[2021-08-08] MEDS: BARICITINIB 2 MG TABLET PO SCH (17:06)
[2021-08-08] MEDS: SODIUM CHLORIDE 0.9% 1,000 ML IV SCH (17:17)
[2021-08-08 20:31] LABS: Glucose,Whole Blood 236 mg/dL (75-99)
[2021-08-08] MEDS: ATORVASTATIN 40 MG TAB PO SCH (21:21)
--- NOTE | 2021-08-08 23:23 | P.PN ---
Subjective Progress Note Date: 08/08/21 76-year-old pleasant male came in with complaints of shortness of breath and cough and patient is on 6 L of oxygen and found to have Covid 19 pneumonia chest x-ray is consistent with Covid 19. Patient is bit hyponatremic as well. Patient does have history of diabetes mellitus. Patient vaccinated for Covid 19 patient symptoms has been going on for about a week patient's d-dimer is around 0.7. Patient is presently on Lovenox for DVT prophylaxis. Patient denied any history of COPD or asthma patient last smoked about 52 years ago still has significant wheezing on exam. And has a significant generalized weakness and fatigue 08/06/2021 Patient is significant for the bed. He is on a 15 L nonrebreather with oxygen saturation in the low 90s. Blood pressure is 134/60, afebrile, heart rate 71, respirations are in the 20s. Patient's infraclavicular pulmonary services. He did have a CTA completed today which demonstrates no evidence for PE, diffuse bilateral pneumonia. Venous Doppler negative for bilateral DVT. Labs today: white blood cell count 23.2, d-dimer 0.74, sodium 131 which is improving, potassium 4, AST 119, ALT 115, LDH 1086, CRP 18, albumin 2.9. Urinalysis negative for infection, 1+ protein 1+ ketones. Echocardiography shows an EF of 55-60% with preserved LV function, mild mitral and trace tricuspid regurgitation. 08/07/21 Patient is evaluated today resting at the bedside. He is 15L high flow nasal cannula as well as a 15 L nonrebreather with oxygen saturation of 93%. Heart rate is tachycardic in the 110s, afebrile, blood pressure 143/77. Labs today show white count 16.6, d-dimer 2.16, sodium 136, AST ALT elevated at 76 and 109, LDH 1121, CRP 14.4. Pro-calcitonin is 0.20. Patient is being followed closely pulmonary services. He is on IV Rocephin empirically as well as Decadron IV and Covid vitamins. 08/08/2021 Patient evaluated today sitting on the bedside. He is on 15L NRB and 15L High flow cannula with an oxygen saturation of 93%, heart rate 100, blood pressure 152/81, afebrile. Labs review today, DD 5.70, sodium 134, potassium 4.2, blood sugar in the 200s. Patient does not to appear in any respiratory distress, however does say he is short of breath. He is able to get to the bedside commode and move around in his room around his bed. Patient is being followed closely by pulmonary services. Chest xray today reveals bilateral multifocal and confluent opacities greater in the left lung redemonstrated consistent with known COVID 19 infection, no significant change from most recent CT study. Blood cultures are negative. Prognosis remains guarded, continues on Decadron IVP, zinc, and COVID vitamins. ROS Constitutional: Denied any fatigue denied any fever. Cardio vascular: denied any chest pain, palpitations Gastrointestinal: denied any nausea vomiting, diarrhea, reports ok appetite Pulmonary: Reports shortness of breath at rest, with exertion, reports mild intermittent cough Neurologic denied any new focal deficits All inpatient medications were reviewed and appropriate changes in these medications as dictated in the interval history and assessment and plan. PHYSICAL EXAMINATION: GENERAL: The patient is alert and oriented x3, not in any acute distress. Morbidly obese HEENT: Pupils are round and equally reacting to light. EOMI. No scleral icterus. No conjunctival pallor. Normocephalic, atraumatic. No pharyngeal erythema. No thyromegaly. CARDIOVASCULAR: S1 and S2 present. No murmurs, rubs, or gallops. PULMONARY: Coarse lungs wound with cough, bilateral crackles today ABDOMEN: Soft, nontender, nondistended, normoactive bowel sounds. No palpable organomegaly. MUSCULOSKELETAL: No joint swelling or deformity. EXTREMITIES: No cyanosis, clubbing, or pedal edema. NEUROLOGICAL: Gross neurological examination did not reveal any new focal deficits. SKIN: No rashes. Assessment and plan -Acute hypoxic respiratory failure secondary to Covid 19 pneumonia, symptoms began about 7 to 10 days ago, he is on 15L NRB and 15L HF NC. -Leukocytosis, improving, procalcitonin mildly elevated. -Shortness of breath, secondary to above -Elevated DD, CTA - no evidence for PE -Elevated liver enzymes and is due to acute systemic inflammation from COVID-19 infection -History of CVA with right residual weakness affecting gait, requiring cane -Hypertension -Type 2 diabetes mellitus which patient the will be started on sliding scale insulin and hold off on metformin. -Obesity -Hyperlipidemia -History of CA -Coronary artery disease status post cardiac catheterization DVT prophylaxis: Lovenox GI Prophylaxis: Pepcid Plan IV fluids KVO Continue Decadron, covid vitamins Continue all other supportive care Repeat labs tomorrow Prognosis is guarded for this patient Objective - Vital Signs Vital signs: Vital Signs Temp 98.5 F 08/08/21 03:49 Pulse 118 H 08/08/21 08:00 Resp 24 08/08/21 08:00 BP 171/82 08/08/21 08:00 Pulse Ox 91 L 08/08/21 08:00 Intake & Output 08/07/21 08/08/21 08/08/21 18:59 06:59 18:59 Intake Total 2390 Output Total 875 Balance 1515 Weight 96 kg Intake: IV 950 Sodium Chloride 0.9% 1, 900 000 ml @ 20 mls/hr IV . Q24H [facility] Rx#:[id number] cefTRIAXone 1 gm In 50 Sodium Chloride 0.9% 50 ml @ 100 mls/hr IVPB Q24HR [facility] Rx#:[id number] Oral 1440 Output: Urine 875 Other: Voiding Method Urinal Urinal # Voids 1 1 # Bowel Movements 3 - Labs CBC & Chem 7: 08/07/21 07:13 08/08/21 09:30 Labs: Abnormal Lab Results - Last 24 Hours (Table) 08/07/21 08/07/21 08/07/21 Range/Units 07:13 07:13 11:50 POC Glucose (mg/dL) 168 H (75-99) mg/dL C-Reactive Protein 14.4 H (<1.0) mg/dL Procalcitonin 0.20 H (0.02-0.09) ng/mL 08/07/21 08/07/21 08/08/21 Range/Units 17:31 20:27 06:14 POC Glucose (mg/dL) 198 H 236 H 106 H (75-99) mg/dL C-Reactive Protein (<1.0) mg/dL Procalcitonin (0.02-0.09) ng/mL Microbiology - Last 24 Hours (Table) 08/05/21 18:31 Blood Culture - Preliminary Blood No Growth after 48 hours 08/06/21 15:37 Urine Culture - Final Urine,Voided
[2021-08-09] MEDS: INSULIN ASPART (NovoLOG) 100 UNIT/ML VIAL SQ SCH ×4 (06:04→21:01)
[2021-08-09] MEDS: SODIUM CHLORIDE 0.9% 1,000 ML IV SCH (06:05)
[2021-08-09 06:27] LABS: Glucose,Whole Blood 108 mg/dL (75-99)
[2021-08-09] MEDS: ALBUTEROL HFA INHALER INHALATION PRN ×3 (08:37→21:08)
[2021-08-09] MEDS: BARICITINIB 2 MG TABLET PO SCH (09:06)
[2021-08-09] MEDS: ENOXAPARIN 40 MG/0.4 ML SYRINGE SQ SCH ×2 (09:06→21:01)
[2021-08-09] MEDS: DEXAMETHASONE SOD PHOSPHATE 10 MG/ML 1 ML VIAL IVP SCH (09:06)
[2021-08-09] MEDS: ASCORBIC ACID 500 MG TAB PO SCH ×2 (09:07→21:01)
[2021-08-09] MEDS: ZINC SULFATE 220 MG CAP PO SCH (09:07)
[2021-08-09] MEDS: lisinopriL 10 MG TAB PO SCH (09:07)
[2021-08-09] MEDS: ASPIRIN 81 MG PO SCH (09:07)
[2021-08-09] MEDS: FAMOTIDINE 20 MG TAB PO SCH (09:07)
[2021-08-09] MEDS: METOPROLOL TARTRATE 50 MG TAB PO SCH ×2 (09:07→21:01)
[2021-08-09] MEDS: CHOLECALCIFEROL 125 MCG (5000 IU) TABLET PO SCH (09:07)
[2021-08-09 11:26] LABS: Glucose,Whole Blood 270 mg/dL (75-99)
[2021-08-09 12:00] LABS: Basophils % (A) 0 %; Eosinophils # (A) 0.1 k/uL (0-0.7); Eosinophils % (A) 1 %; HCT 42.8 % (39.0-53.0); HGB 14.3 gm/dL (13.0-17.5); Lymphocytes # (A) 0.5 k/uL (1.0-4.8); Lymphocytes % (A) 3 %; MCH 30.7 pg (25.0-35.0); MCHC 33.4 g/dL (31.0-37.0); MCV 91.8 fL (80.0-100.0); Mean Platelet Volume 7.4; Monocytes # (A) 0.4 k/uL (0-1.0); Monocytes % (A) 2 %; Neutrophils # (A) 17.3 k/uL (1.3-7.7); Neutrophils % (A) 94 %; Platelet Count 531 k/uL (150-450); RBC 4.66 m/uL (4.30-5.90); RDW 13.9 % (11.5-15.5); WBC 18.4 k/uL (3.8-10.6)
[2021-08-09 12:22] LABS: ALT 117 U/L (4-49); AST 86 U/L (17-59); African American GFR (CKD) >90 (>60 ml/min/1.73 sqM); Albumin 2.7 g/dL (3.5-5.0); Alkaline Phosphatase 79 U/L (38-126); Anion Gap 10 mmol/L; Blood Urea Nitrogen 20 mg/dL (9-20); Calcium 8.6 mg/dL (8.4-10.2); Carbon Dioxide 28 mmol/L (22-30); Chloride 99 mmol/L (98-107); Glucose 256 mg/dL (74-99); Non-African American GFR(CKD) >90 (>60 ml/min/1.73 sqM); Potassium 4.5 mmol/L (3.5-5.1); Sodium 137 mmol/L (137-145); Total Bilirubin 0.5 mg/dL (0.2-1.3); Total Protein 5.8 g/dL (6.3-8.2)
--- NOTE | 2021-08-09 14:55 | P.PN ---
Subjective Progress Note Date: 08/09/21 76-year-old pleasant male came in with complaints of shortness of breath and cough and patient is on 6 L of oxygen and found to have Covid 19 pneumonia chest x-ray is consistent with Covid 19. Patient is bit hyponatremic as well. Patient does have history of diabetes mellitus. Patient vaccinated for Covid 19 patient symptoms has been going on for about a week patient's d-dimer is around 0.7. Patient is presently on Lovenox for DVT prophylaxis. Patient denied any history of COPD or asthma patient last smoked about 52 years ago still has significant wheezing on exam. And has a significant generalized weakness and fatigue 08/06/2021 Patient is significant for the bed. He is on a 15 L nonrebreather with oxygen saturation in the low 90s. Blood pressure is 134/60, afebrile, heart rate 71, respirations are in the 20s. Patient's infraclavicular pulmonary services. He did have a CTA completed today which demonstrates no evidence for PE, diffuse bilateral pneumonia. Venous Doppler negative for bilateral DVT. Labs today: white blood cell count 23.2, d-dimer 0.74, sodium 131 which is improving, potassium 4, AST 119, ALT 115, LDH 1086, CRP 18, albumin 2.9. Urinalysis negative for infection, 1+ protein 1+ ketones. Echocardiography shows an EF of 55-60% with preserved LV function, mild mitral and trace tricuspid regurgitation. 08/07/21 Patient is evaluated today resting at the bedside. He is 15L high flow nasal cannula as well as a 15 L nonrebreather with oxygen saturation of 93%. Heart rate is tachycardic in the 110s, afebrile, blood pressure 143/77. Labs today show white count 16.6, d-dimer 2.16, sodium 136, AST ALT elevated at 76 and 109, LDH 1121, CRP 14.4. Pro-calcitonin is 0.20. Patient is being followed closely pulmonary services. He is on IV Rocephin empirically as well as Decadron IV and Covid vitamins. 08/08/2021 Patient evaluated today sitting on the bedside. He is on 15L NRB and 15L High flow cannula with an oxygen saturation of 93%, heart rate 100, blood pressure 152/81, afebrile. Labs review today, DD 5.70, sodium 134, potassium 4.2, blood sugar in the 200s. Patient does not to appear in any respiratory distress, however does say he is short of breath. He is able to get to the bedside commode and move around in his room around his bed. Patient is being followed closely by pulmonary services. Chest xray today reveals bilateral multifocal and confluent opacities greater in the left lung redemonstrated consistent with known COVID 19 infection, no significant change from most recent CT study. Blood cultures are negative. Prognosis remains guarded, continues on Decadron IVP, zinc, and COVID vitamins. 08/09/2021 No acute events over night. Patient continues on 15L NRB and 15L HF cannula. Oxygen saturation is 90%, afebrile, heart rate 62, blood pressure 152/77. Labs today, WBC 18.4, platelet 531, sodium 137, blood sugar in the high 200s. AST 86, ALT 117, albumin 2.7. Reports shortness of breath with exertion, however he is able to get to the BSC and back to bed. He is eating well, denies n/v/d. ROS Constitutional: Denied any fatigue denied any fever. Cardio vascular: denied any chest pain, palpitations Gastrointestinal: denied any nausea vomiting, diarrhea, reports ok appetite Pulmonary: Reports shortness of breath at rest, with exertion, reports mild intermittent cough Neurologic denied any new focal deficits All inpatient medications were reviewed and appropriate changes in these medications as dictated in the interval history and assessment and plan. PHYSICAL EXAMINATION: GENERAL: The patient is alert and oriented x3, not in any acute distress. Morbidly obese HEENT: Pupils are round and equally reacting to light. EOMI. No scleral icterus. No conjunctival pallor. Normocephalic, atraumatic. No pharyngeal erythema. No thyromegaly. CARDIOVASCULAR: S1 and S2 present. No murmurs, rubs, or gallops. PULMONARY: Bibasilar Rales. ABDOMEN: Soft, nontender, nondistended, normoactive bowel sounds. No palpable organomegaly. MUSCULOSKELETAL: No joint swelling or deformity. EXTREMITIES: No cyanosis, clubbing, or pedal edema. NEUROLOGICAL: Gross neurological examination did not reveal any new focal deficits. SKIN: No rashes. Assessment and plan -Acute hypoxic respiratory failure secondary to Covid 19 pneumonia, symptoms began about 7 to 10 days ago, he is on 15L NRB and 15L HF NC. -Leukocytosis, increasing -Shortness of breath, secondary to above -Elevated DD, CTA - no evidence for PE -Elevated liver enzymes and is due to acute systemic inflammation from COVID-19 infection -History of CVA with right residual weakness affecting gait, requiring cane -Hypertension -Type 2 diabetes mellitus which patient the will be started on sliding scale insulin and hold off on metformin. -Obesity -Hyperlipidemia -History of NH -Coronary artery disease status post cardiac catheterization DVT prophylaxis: Lovenox GI Prophylaxis: Pepcid Plan IV fluids KVO Continue Decadron, covid vitamins, CASSIE Continue all other supportive care Repeat labs tomorrow Prognosis is guarded for this patient Objective - Vital Signs Vital signs: Vital Signs Temp 98.3 F 08/09/21 08:00 Pulse 62 08/09/21 12:00 Resp 28 H 08/09/21 12:00 BP 152/77 08/09/21 12:00 Pulse Ox 90 L 08/09/21 12:00 Intake & Output 08/08/21 08/09/21 08/09/21 18:59 06:59 18:59 Intake Total 720 420 Balance 720 420 Weight 97.5 kg Intake: Oral 720 420 Other: Voiding Method Urinal Urinal Urinal # Voids 2 1 # Bowel Movements 1 - Labs CBC & Chem 7: 08/09/21 11:04 08/09/21 11:04 Labs: Abnormal Lab Results - Last 24 Hours (Table) 08/08/21 08/08/21 08/09/21 Range/Units 16:57 20:27 06:00 WBC (3.8-10.6) k/uL Plt Count (150-450) k/uL Neutrophils # (1.3-7.7) k/uL Lymphocytes # (1.0-4.8) k/uL Glucose (74-99) mg/dL POC Glucose (mg/dL) 280 H 236 H 108 H (75-99) mg/dL AST (17-59) U/L ALT (4-49) U/L Total Protein (6.3-8.2) g/dL Albumin (3.5-5.0) g/dL 08/09/21 08/09/21 08/09/21 Range/Units 11:04 11:04 11:25 WBC 18.4 H (3.8-10.6) k/uL Plt Count 531 H (150-450) k/uL Neutrophils # 17.3 H (1.3-7.7) k/uL Lymphocytes # 0.5 L (1.0-4.8) k/uL Glucose 256 H (74-99) mg/dL POC Glucose (mg/dL) 270 H (75-99) mg/dL AST 86 H (17-59) U/L ALT 117 H (4-49) U/L Total Protein 5.8 L (6.3-8.2) g/dL Albumin 2.7 L (3.5-5.0) g/dL Microbiology - Last 24 Hours (Table) 08/05/21 18:31 Blood Culture - Preliminary Blood No Growth after 72 hours
--- NOTE | 2021-08-09 14:57 | P.PN ---
Subjective Progress Note Date: 08/09/21 76-year-old male patient, who presented initially to [facility] and late r on transferred to [facility] because of COVID 19 related pneumonia and shortness of breath. Both himself and his felt sick. Both of them are hospitalized for now. The patient started getting sick approximately over a week ago and he recalls his symptoms started approximately 10 days ago. He started having fatigue and tiredness and malaise in addition to some cough and shortness of breath. He ultimately became very weak. He presented to [facility] via EMS. His son noticed that the patient was quite ill and he called EMS and accordingly got transferred to the hospital. The patient has no history of any chronic lung disease. He is a nonsmoker for now. He has not received his vaccination for COVID 19. The patient had no nausea or vomiting no diarrhea. No altered mentation. He was quite hypoxic upon arrival and the patient is currently on 7 L of oxygen by nasal cannula to build a pulse ox of around 85-86%. The patient had a white cell count of 21.2, hemoglobin 14.5, his sodium was 128,. Troponin elevation of 0.4-3 and later on down to 0.287, his d-dimer is at 0.7, normal renal function, resident inflammatory markers are still pending including LDH and CRP. White cell count is at 21.2 with a hemoglobin of 14.5. Chest x-ray is consistent with bilateral pulmonary infiltrates consistent with COVID 19 related pneumonia. EKG showed sinus tachycardia, occasional premature supraventricular complexes and left atrial enlargement. No evidence of any acute ischemic changes. No reported chest pain. No previous history of DVT or pulmonary embolism. 08/06/2021, seeing the patient for a follow-up. The patient is still having labored breathing. The patient was on a high flow oxygen at 15 L and he was switched to 100% nonrebreather facemask. He feels more comfortable with a full facemask for now. He remains on Decadron. No new complaints otherwise. Focused on level was borderline elevated and the patient was given IV Rocephin as an empiric antibiotic coverage. Meanwhile, 2-D echocardiogram was done and was essentially within normal limits. He has a preserved LV function. His ejection fraction is around 55-60%. He does have mild mitral regurgitation. He has also trace tricuspid regurgitation. No significant valvular abnormalities. The patient has no other new complaints for now. He is currently on Decadron. I'm considering starting this patient on Baricitinib per protocol. He does not have clear indication for an underlying infection. He remains on anticoagulation with Lovenox 40 mg subcu for DVT prophylaxis. 08/07/2021, the patient is being seen for a follow-up. He remains on 100% on a beta facemask along with 15 L about 2 by nasal cannula. He feels better on today's evaluation. He states that he is less short of breath. Nevertheless, the patient continues to be hypoxic. The patient is also on Decadron 6 mg IV every 24 hours. There was suspicion for an underlying infection. The patient did have and the patient had a white cell count of 16.6. The white cell count was as high as 23. He is on empiric antibiotic coverage with IV Rocephin. Cultures are negative. We'll monitor the white count for now. The d-dimer today's at 2.1. His LDH level was 1121 and his CRP is 14.4. The patient's focused on her level dropped down to 0.2 from a baseline of 0.37. The Doppler of the lower extremity was negative. The CT angiogram showed no evidence of any pulmonary embolism. Echocardiogram was consistent with normal LV function. I'm still considering starting the patient on Baricitinib at a later stage once the cultures are essentially finalized. On 08/08/2021 patient seen in follow-up on selective care unit, patient is on 15 L high flow nasal cannula and her percent nonrebreather mask, and his pulse ox is 92%. He is short of breath with exertion, and conversation, but no acute distress was noted, his been get not been using the bedside commode, tolerates it fairly well. Afebrile, hemodynamically stable. Today's chest x-ray has been reviewed showing bilateral multifocal and confluent opacities greater on the left consistent with known history of COVID-19 infection with no significant change. Today's lab have been reviewed, his d-dimer is 5.7, increased from yesterday's value, sodium is 134, and respiratory electrolytes are within normal limits, BUN is 18 creatinine 0.69. CRP is 21, his LDH has increased to 1223. Urinalysis a few days ago showed 1+ ketones, +1 protein, and many bacteria, patient was treated for possibility of urinary tract infection with Rocephin, his repeat pro calcitonin came back lower at 0.20, and urine culture showed no growth. Rocephin will be discontinued. Culture showed no growth. Lung sounds reveal diffuse bilateral crackles. Patient appears to be mildly fatigued, but no acute distress. 08/09/2021, the patient is being seen for a follow-up. He was on a combination of 100% nonrebreather facemask and 15 L nasal cannula. I took him off the 100% nonrebreather while having foot and the patient was able to maintain a saturation as low as 90%. I would consider this to be an improvement. Otherwise the patient is doing well. No specific complaints. Is a good appetite. He has no new complaints. He gets short of breath with speech and minimal amount of activity. His electrodes are all within normal limits. His LFTs are slightly elevated and the patient has a component of mild transaminitis. The patient is also noted to have a white cell count of 18.4 with a hemoglobin of 14.3. No other new complaints otherwise for now. Is afebrile. His hemodynamics are stable. He remains on a combination of Decadron and Baricitinib. Objective - Vital Signs Vital signs: Vital Signs Temp 98.3 F 08/09/21 08:00 Pulse 62 08/09/21 12:00 Resp 28 H 08/09/21 12:00 BP 152/77 08/09/21 12:00 Pulse Ox 90 L 08/09/21 12:00 Intake & Output 08/08/21 08/09/21 08/09/21 18:59 06:59 18:59 Intake Total 720 420 Balance 720 420 Weight 97.5 kg Intake: Oral 720 420 Other: Voiding Method Urinal Urinal Urinal # Voids 2 1 # Bowel Movements 1 - Exam GENERAL: The patient is alert and oriented x3, not in any acute distress. Morbidly obese currently on several liters of oxygen by nasal cannula. Mild respiratory distress. Overall, he is not using excessive muscle breathing. Is able to speak full sentences. Head exam was generally normal. There was no scleral icterus or corneal arcus. Mucous membranes were moist. HEENT: Pupils are round and equally reacting to light. EOMI. No scleral icterus. No conjunctival pallor. Normocephalic, atraumatic. No pharyngeal erythema. No th yromegaly. CARDIOVASCULAR: S1 and S2 present. No murmurs, rubs, or gallops. PULMONARY: expiratory wheezing and exam ABDOMEN: Soft, nontender, nondistended, normoactive bowel sounds. No palpable organomegaly. MUSCULOSKELETAL: No joint swelling or deformity. EXTREMITIES: No cyanosis, clubbing, or pedal edema. NEUROLOGICAL: Gross neurological examination did not reveal any new focal deficits. The patient has some chronic weakness on the left than the patient walks well with the help of a cane. No focal neurological deficit or any new onset neurological deficits. This is related to previous stroke. Examination of the skin revealed no evidence of significant rashes, suspicious appearing nevi or other concerning lesions. - Labs CBC & Chem 7: 08/09/21 11:04 08/09/21 11:04 Labs: Abnormal Lab Results - Last 24 Hours (Table) 08/08/21 08/08/21 08/09/21 Range/Units 16:57 20:27 06:00 WBC (3.8-10.6) k/uL Plt Count (150-450) k/uL Neutrophils # (1.3-7.7) k/uL Lymphocytes # (1.0-4.8) k/uL Glucose (74-99) mg/dL POC Glucose (mg/dL) 280 H 236 H 108 H (75-99) mg/dL AST (17-59) U/L ALT (4-49) U/L Total Protein (6.3-8.2) g/dL Albumin (3.5-5.0) g/dL 08/09/21 08/09/21 08/09/21 Range/Units 11:04 11:04 11:25 WBC 18.4 H (3.8-10.6) k/uL Plt Count 531 H (150-450) k/uL Neutrophils # 17.3 H (1.3-7.7) k/uL Lymphocytes # 0.5 L (1.0-4.8) k/uL Glucose 256 H (74-99) mg/dL POC Glucose (mg/dL) 270 H (75-99) mg/dL AST 86 H (17-59) U/L ALT 117 H (4-49) U/L Total Protein 5.8 L (6.3-8.2) g/dL Albumin 2.7 L (3.5-5.0) g/dL Microbiology - Last 24 Hours (Table) 08/05/21 18:31 Blood Culture - Preliminary Blood No Growth after 72 hours Assessment and Plan Plan: 1 acute COVID 19 related pneumonia. Symptoms started approximately 7-10 days prior to presentation and the patient progressively got worse and presented to us with worsening shortness of breath and acute hypoxic arrest respiratory failure with bilateral COVID 19 related pulmonary infiltrates. The patient is not vaccinated for now. The CT angiogram was consistent with pneumonia. There was no evidence of any pulmonary embolism. Doppler of the lower extremity is been negative. The patient's condition is currently stable and the patient is currently on 100% nonrebreather facemask in addition to 15 L of Oxymizer cannula. There is a possibility the patient can be taken off the nonrebreather facemask today. We'll continue monitoring his some other markers and the diameter this will be repeated for tomorrow. He remains on accommodation Baricitinib and Decadron. 2 . acute hypoxic respiratory failure secondary to above, currently on 10 L of oxygen by nasal cannula 100% nonrebreather facemask 3 shortness of breath secondary to above 4 troponin leak, consider an acute non-STEMI. The patient has no acute ischemic changes on EKG 5 history of multiple CVAs with some residual visual deficits and difficult with gait and the patient walks with the help of a cane 6 history of coronary artery disease with previous history of myocardial infarction 7 hyperlipidemia 8 hypertension 9 hyponatremia, likely hypovolemic, improved and sodium level is normalized 10 acute leukocytosis under investigation for now Plan The patient on 100% nonrebreather facemask, respiration is still borderline and the patient continues to been 100% on facemask. Inflammatory markers including LDH continues to be elevated. the levels will be repeated tomorrow. Continue Decadron 6 mg IV every 24 hours and Baricitinib per protocol. Awaiting final cultures. The white cell count remains elevated Follow-up inflammatory markers Continue Lovenox for DVT prophylaxis Echocardiogram was noted We'll continue to follow.
[2021-08-09 16:28] LABS: Glucose,Whole Blood 237 mg/dL (75-99)
[2021-08-09 20:55] LABS: Glucose,Whole Blood 202 mg/dL (75-99)
[2021-08-09] MEDS: ATORVASTATIN 40 MG TAB PO SCH (21:01)
[2021-08-10 06:23] LABS: Glucose,Whole Blood 100 mg/dL (75-99)
[2021-08-10] MEDS: INSULIN ASPART (NovoLOG) 100 UNIT/ML VIAL SQ SCH ×4 (06:25→21:08)
--- NOTE | 2021-08-10 07:14 | XR ---
EXAMINATION TYPE: XR chest 1V portable DATE OF EXAM: 08/10/2021 COMPARISON: 08/08/2021 HISTORY: Covid pneumonia TECHNIQUE: Single frontal view of the chest is obtained. FINDINGS: There are moderate-sized focal areas of dense lung opacification which were seen previousl y and are unchanged. There is no pneumothorax or large pleural effusion. The osseous structures are intact IMPRESSION: No interval change in the scattered lung airspace opacities.
[2021-08-10 08:33] LABS: Basophils % (A) 0 %; Eosinophils # (A) 0.1 k/uL (0-0.7); Eosinophils % (A) 1 %; HCT 40.9 % (39.0-53.0); HGB 13.6 gm/dL (13.0-17.5); Lymphocytes # (A) 0.9 k/uL (1.0-4.8); Lymphocytes % (A) 5 %; MCH 30.2 pg (25.0-35.0); MCHC 33.2 g/dL (31.0-37.0); MCV 90.9 fL (80.0-100.0); Mean Platelet Volume 7.3; Monocytes # (A) 0.5 k/uL (0-1.0); Monocytes % (A) 3 %; Neutrophils # (A) 14.4 k/uL (1.3-7.7); Neutrophils % (A) 90 %; Platelet Count 503 k/uL (150-450); RDW 13.9 % (11.5-15.5); WBC 16.1 k/uL (3.8-10.6)
[2021-08-10 08:41] LABS: Potassium 4.5 mmol/L (3.5-5.1)
[2021-08-10 08:42] LABS: ALT 153 U/L (4-49); AST 81 U/L (17-59); African American GFR (CKD) >90 (>60 ml/min/1.73 sqM); Albumin 2.5 g/dL (3.5-5.0); Alkaline Phosphatase 71 U/L (38-126); Anion Gap 4 mmol/L; Blood Urea Nitrogen 20 mg/dL (9-20); Calcium 8.5 mg/dL (8.4-10.2); Carbon Dioxide 32 mmol/L (22-30); Chloride 100 mmol/L (98-107); Glucose 102 mg/dL (74-99); Non-African American GFR(CKD) 89 (>60 ml/min/1.73 sqM); Sodium 136 mmol/L (137-145); Total Bilirubin 0.5 mg/dL (0.2-1.3); Total Protein 5.4 g/dL (6.3-8.2)
[2021-08-10] MEDS: METOPROLOL TARTRATE 50 MG TAB PO SCH ×2 (09:15→20:05)
[2021-08-10] MEDS: lisinopriL 10 MG TAB PO SCH (09:15)
[2021-08-10] MEDS: ZINC SULFATE 220 MG CAP PO SCH (09:15)
[2021-08-10] MEDS: CHOLECALCIFEROL 125 MCG (5000 IU) TABLET PO SCH (09:15)
[2021-08-10] MEDS: DEXAMETHASONE SOD PHOSPHATE 10 MG/ML 1 ML VIAL IVP SCH (09:15)
[2021-08-10] MEDS: FAMOTIDINE 20 MG TAB PO SCH (09:15)
[2021-08-10] MEDS: ASCORBIC ACID 500 MG TAB PO SCH ×2 (09:15→20:05)
[2021-08-10] MEDS: ASPIRIN 81 MG PO SCH (09:15)
[2021-08-10] MEDS: ENOXAPARIN 40 MG/0.4 ML SYRINGE SQ SCH ×2 (09:15→20:05)
[2021-08-10] MEDS: ALBUTEROL HFA INHALER INHALATION PRN ×2 (10:42→21:25)
[2021-08-10] MEDS: SODIUM CHLORIDE 0.9% 1,000 ML IV SCH (11:35)
[2021-08-10 11:44] LABS: Glucose,Whole Blood 135 mg/dL (75-99)
--- NOTE | 2021-08-10 14:39 | P.PN ---
Subjective Progress Note Date: 08/10/21 76-year-old pleasant male came in with complaints of shortness of breath and cough and patient is on 6 L of oxygen and found to have Covid 19 pneumonia chest x-ray is consistent with Covid 19. Patient is bit hyponatremic as well. Patient does have history of diabetes mellitus. Patient vaccinated for Covid 19 patient symptoms has been going on for about a week patient's d-dimer is around 0.7. Patient is presently on Lovenox for DVT prophylaxis. Patient denied any history of COPD or asthma patient last smoked about 52 years ago still has significant wheezing on exam. And has a significant generalized weakness and fatigue 08/06/2021 Patient is significant for the bed. He is on a 15 L nonrebreather with oxygen saturation in the low 90s. Blood pressure is 134/60, afebrile, heart rate 71, respirations are in the 20s. Patient's infraclavicular pulmonary services. He did have a CTA completed today which demonstrates no evidence for PE, diffuse bilateral pneumonia. Venous Doppler negative for bilateral DVT. Labs today: white blood cell count 23.2, d-dimer 0.74, sodium 131 which is improving, potassium 4, AST 119, ALT 115, LDH 1086, CRP 18, albumin 2.9. Urinalysis negative for infection, 1+ protein 1+ ketones. Echocardiography shows an EF of 55-60% with preserved LV function, mild mitral and trace tricuspid regurgitation. 08/07/21 Patient is evaluated today resting at the bedside. He is 15L high flow nasal cannula as well as a 15 L nonrebreather with oxygen saturation of 93%. Heart rate is tachycardic in the 110s, afebrile, blood pressure 143/77. Labs today show white count 16.6, d-dimer 2.16, sodium 136, AST ALT elevated at 76 and 109, LDH 1121, CRP 14.4. Pro-calcitonin is 0.20. Patient is being followed closely pulmonary services. He is on IV Rocephin empirically as well as Decadron IV and Covid vitamins. 08/08/2021 Patient evaluated today sitting on the bedside. He is on 15L NRB and 15L High flow cannula with an oxygen saturation of 93%, heart rate 100, blood pressure 152/81, afebrile. Labs review today, DD 5.70, sodium 134, potassium 4.2, blood sugar in the 200s. Patient does not to appear in any respiratory distress, however does say he is short of breath. He is able to get to the bedside commode and move around in his room around his bed. Patient is being followed closely by pulmonary services. Chest xray today reveals bilateral multifocal and confluent opacities greater in the left lung redemonstrated consistent with known COVID 19 infection, no significant change from most recent CT study. Blood cultures are negative. Prognosis remains guarded, continues on Decadron IVP, zinc, and COVID vitamins. 08/09/2021 No acute events over night. Patient continues on 15L NRB and 15L HF cannula. Oxygen saturation is 90%, afebrile, heart rate 62, blood pressure 152/77. Labs today, WBC 18.4, platelet 531, sodium 137, blood sugar in the high 200s. AST 86, ALT 117, albumin 2.7. Reports shortness of breath with exertion, however he is able to get to the BSC and back to bed. He is eating well, denies n/v/d. 08/10/2021 Patient evaluated today resting in bed, oxygen sats is mainly unchanged. He continues any 15L high flow cannula with 15 L nonrebreather 92% oxygenation, blood pressure 130/71, heart rate 84, afebrile. Labs today show white count 16.1, sodium 136, potassium 4.5, CO2 32, blood sugars in the 100s, AST 81, ALT 153, LDH 951, CRP 13.0, total protein 5.4, albumin 2.5. Repeat chest x-ray today shows no interval change in the scattered lung airspace opacities. Continue to follow along monitor closely he is being followed by pulmonary services. Prognosis is guarded, patient continues on Decadron IV, zinc, vitamins, CASSIE, and Lovenox. ROS Constitutional: Denied any fatigue denied any fever. Cardio vascular: denied any chest pain, palpitations Gastrointestinal: denied any nausea vomiting, diarrhea, reports ok appetite Pulmonary: Reports shortness of breath at rest, with exertion, reports mild intermittent cough Neurologic denied any new focal deficits All inpatient medications were reviewed and appropriate changes in these medications as dictated in the interval history and assessment and plan. PHYSICAL EXAMINATION: GENERAL: The patient is alert and oriented x3, not in any acute distress. Morbidly obese HEENT: Pupils are round and equally reacting to light. EOMI. No scleral icterus. No conjunctival pallor. Normocephalic, atraumatic. No pharyngeal erythema. No thyromegaly. CARDIOVASCULAR: S1 and S2 present. No murmurs, rubs, or gallops. PULMONARY: Bibasilar Rales. ABDOMEN: Soft, nontender, nondistended, normoactive bowel sounds. No palpable organomegaly. MUSCULOSKELETAL: No joint swelling or deformity. EXTREMITIES: No cyanosis, clubbing, or pedal edema. NEUROLOGICAL: Gross neurological examination did not reveal any new focal deficits. SKIN: No rashes. Assessment and plan -Acute hypoxic respiratory failure secondary to Covid 19 pneumonia, symptoms began about 7 to 10 days prior to admission, he is on 15L NRB and 15L HF NC. -Leukocytosis secondary to above -Shortness of breath, secondary to above -Elevated DD, CTA - no evidence for PE -Elevated liver enzymes and is due to acute systemic inflammation from COVID-19 infection -History of CVA with right residual weakness affecting gait, requiring cane -Hypertension -Type 2 diabetes mellitus which patient the will be started on sliding scale insulin and hold off on metformin. -Obesity -Hyperlipidemia -History of VA -Coronary artery disease status post cardiac catheterization DVT prophylaxis: Lovenox GI Prophylaxis: Pepcid Plan IV fluids KVO Continue Decadron, covid vitamins, CASSIE Continue all other supportive care Repeat labs tomorrow Prognosis is guarded for this patient Objective - Vital Signs Vital signs: Vital Signs Temp 97.6 F 08/10/21 08:00 Pulse 100 08/10/21 08:00 Resp 24 08/10/21 08:00 BP 146/74 08/10/21 08:00 Pulse Ox 91 L 08/10/21 08:00 Intake & Output 08/09/21 08/10/21 08/10/21 18:59 06:59 18:59 Intake Total 600 420 Balance 600 420 Weight 97 kg Intake: Oral 600 420 Other: Voiding Method Urinal # Voids 2 1 - Labs CBC & Chem 7: 08/10/21 07:34 08/10/21 07:34 Labs: Abnormal Lab Results - Last 24 Hours (Table) 08/09/21 08/09/21 08/09/21 Range/Units 11:04 11:04 11:25 WBC 18.4 H (3.8-10.6) k/uL Plt Count 531 H (150-450) k/uL Neutrophils # 17.3 H (1.3-7.7) k/uL Lymphocytes # 0.5 L (1.0-4.8) k/uL Sodium (137-145) mmol/L Carbon Dioxide (22-30) mmol/L Glucose 256 H (74-99) mg/dL POC Glucose (mg/dL) 270 H (75-99) mg/dL AST 86 H (17-59) U/L ALT 117 H (4-49) U/L Lactate Dehydrogenase (313-618) U/L C-Reactive Protein (<1.0) mg/dL Total Protein 5.8 L (6.3-8.2) g/dL Albumin 2.7 L (3.5-5.0) g/dL 08/09/21 08/09/21 08/10/21 Range/Units 16:27 20:19 06:18 WBC (3.8-10.6) k/uL Plt Count (150-450) k/uL Neutrophils # (1.3-7.7) k/uL Lymphocytes # (1.0-4.8) k/uL Sodium (137-145) mmol/L Carbon Dioxide (22-30) mmol/L Glucose (74-99) mg/dL POC Glucose (mg/dL) 237 H 202 H 100 H (75-99) mg/dL AST (17-59) U/L ALT (4-49) U/L Lactate Dehydrogenase (313-618) U/L C-Reactive Protein (<1.0) mg/dL Total Protein (6.3-8.2) g/dL Albumin (3.5-5.0) g/dL 08/10/21 08/10/21 08/10/21 Range/Units 07:34 07:34 07:34 WBC 16.1 H (3.8-10.6) k/uL Plt Count 503 H (150-450) k/uL Neutrophils # 14.4 H (1.3-7.7) k/uL Lymphocytes # 0.9 L (1.0-4.8) k/uL Sodium 136 L (137-145) mmol/L Carbon Dioxide 32 H (22-30) mmol/L Glucose 102 H (74-99) mg/dL POC Glucose (mg/dL) (75-99) mg/dL AST 81 H (17-59) U/L ALT 153 H (4-49) U/L Lactate Dehydrogenase 951 H (313-618) U/L C-Reactive Protein 13.0 H (<1.0) mg/dL Total Protein 5.4 L (6.3-8.2) g/dL Albumin 2.5 L (3.5-5.0) g/dL Microbiology - Last 24 Hours (Table) 08/05/21 18:31 Blood Culture - Preliminary Blood No Growth after 96 hours
--- NOTE | 2021-08-10 15:55 | P.PN ---
Subjective Progress Note Date: 08/10/21 76-year-old male patient, who presented initially to [facility] and late r on transferred to [facility] because of COVID 19 related pneumonia and shortness of breath. Both himself and his felt sick. Both of them are hospitalized for now. The patient started getting sick approximately over a week ago and he recalls his symptoms started approximately 10 days ago. He started having fatigue and tiredness and malaise in addition to some cough and shortness of breath. He ultimately became very weak. He presented to [facility] via EMS. His son noticed that the patient was quite ill and he called EMS and accordingly got transferred to the hospital. The patient has no history of any chronic lung disease. He is a nonsmoker for now. He has not received his vaccination for COVID 19. The patient had no nausea or vomiting no diarrhea. No altered mentation. He was quite hypoxic upon arrival and the patient is currently on 7 L of oxygen by nasal cannula to build a pulse ox of around 85-86%. The patient had a white cell count of 21.2, hemoglobin 14.5, his sodium was 128,. Troponin elevation of 0.4-3 and later on down to 0.287, his d-dimer is at 0.7, normal renal function, resident inflammatory markers are still pending including LDH and CRP. White cell count is at 21.2 with a hemoglobin of 14.5. Chest x-ray is consistent with bilateral pulmonary infiltrates consistent with COVID 19 related pneumonia. EKG showed sinus tachycardia, occasional premature supraventricular complexes and left atrial enlargement. No evidence of any acute ischemic changes. No reported chest pain. No previous history of DVT or pulmonary embolism. 08/06/2021, seeing the patient for a follow-up. The patient is still having labored breathing. The patient was on a high flow oxygen at 15 L and he was switched to 100% nonrebreather facemask. He feels more comfortable with a full facemask for now. He remains on Decadron. No new complaints otherwise. Focused on level was borderline elevated and the patient was given IV Rocephin as an empiric antibiotic coverage. Meanwhile, 2-D echocardiogram was done and was essentially within normal limits. He has a preserved LV function. His ejection fraction is around 55-60%. He does have mild mitral regurgitation. He has also trace tricuspid regurgitation. No significant valvular abnormalities. The patient has no other new complaints for now. He is currently on Decadron. I'm considering starting this patient on Baricitinib per protocol. He does not have clear indication for an underlying infection. He remains on anticoagulation with Lovenox 40 mg subcu for DVT prophylaxis. 08/07/2021, the patient is being seen for a follow-up. He remains on 100% on a beta facemask along with 15 L about 2 by nasal cannula. He feels better on today's evaluation. He states that he is less short of breath. Nevertheless, the patient continues to be hypoxic. The patient is also on Decadron 6 mg IV every 24 hours. There was suspicion for an underlying infection. The patient did have and the patient had a white cell count of 16.6. The white cell count was as high as 23. He is on empiric antibiotic coverage with IV Rocephin. Cultures are negative. We'll monitor the white count for now. The d-dimer today's at 2.1. His LDH level was 1121 and his CRP is 14.4. The patient's focused on her level dropped down to 0.2 from a baseline of 0.37. The Doppler of the lower extremity was negative. The CT angiogram showed no evidence of any pulmonary embolism. Echocardiogram was consistent with normal LV function. I'm still considering starting the patient on Baricitinib at a later stage once the cultures are essentially finalized. On 08/08/2021 patient seen in follow-up on selective care unit, patient is on 15 L high flow nasal cannula and her percent nonrebreather mask, and his pulse ox is 92%. He is short of breath with exertion, and conversation, but no acute distress was noted, his been get not been using the bedside commode, tolerates it fairly well. Afebrile, hemodynamically stable. Today's chest x-ray has been reviewed showing bilateral multifocal and confluent opacities greater on the left consistent with known history of COVID-19 infection with no significant change. Today's lab have been reviewed, his d-dimer is 5.7, increased from yesterday's value, sodium is 134, and respiratory electrolytes are within normal limits, BUN is 18 creatinine 0.69. CRP is 21, his LDH has increased to 1223. Urinalysis a few days ago showed 1+ ketones, +1 protein, and many bacteria, patient was treated for possibility of urinary tract infection with Rocephin, his repeat pro calcitonin came back lower at 0.20, and urine culture showed no growth. Rocephin will be discontinued. Culture showed no growth. Lung sounds reveal diffuse bilateral crackles. Patient appears to be mildly fatigued, but no acute distress. 08/09/2021, the patient is being seen for a follow-up. He was on a combination of 100% nonrebreather facemask and 15 L nasal cannula. I took him off the 100% nonrebreather while having foot and the patient was able to maintain a saturation as low as 90%. I would consider this to be an improvement. Otherwise the patient is doing well. No specific complaints. Is a good appetite. He has no new complaints. He gets short of breath with speech and minimal amount of activity. His electrodes are all within normal limits. His LFTs are slightly elevated and the patient has a component of mild transaminitis. The patient is also noted to have a white cell count of 18.4 with a hemoglobin of 14.3. No other new complaints otherwise for now. Is afebrile. His hemodynamics are stable. He remains on a combination of Decadron and Baricitinib. 08/10/2021, the patient is doing well. No specific complaints. Remains on a on the percent nonrebreather facemask in addition to 15 L of oxygen by nasal cannula. Condition is unchanged compared to yesterday and the patient continues to desaturate whenever he takes off his nonrebreather fullface mask. For instance, while having lunch, pulse ox dropped down to the 70s while off the mask. As such, he needs both sources of oxygen. He remains on Decadron. He remains on Baricitinib per protocol. He is also on Lovenox 40 mg subcu for prophylaxis. On his blood work, the patient's LDH level is down to 951, CRP is down to 13, normal coagulation profile, white cell count is 16.1 with a hemog lobin of 13.6. Platelet count is normal at 503. No fever. No chills. No sweats. No other complaints otherwise for now. Objective - Vital Signs Vital signs: Vital Signs Temp 97.8 F 08/10/21 12:00 Pulse 84 12/05/21 12:00 Resp 21 08/10/21 12:00 BP 130/71 08/10/21 12:00 Pulse Ox 92 L 08/10/21 12:00 Intake & Output 08/09/21 08/10/21 08/10/21 18:59 06:59 18:59 Intake Total 600 600 Balance 600 600 Weight 97 kg Intake: Oral 600 600 Other: Voiding Method Urinal # Voids 2 1 1 - Exam GENERAL: The patient is alert and oriented x3, not in any acute distress. Morbidly obese currently on several liters of oxygen by nasal cannula. Mild respiratory distress. Overall, he is not using excessive muscle breathing. Is able to speak full sentences. Head exam was generally normal. There was no scleral icterus or corneal arcus. Mucous membranes were moist. HEENT: Pupils are round and equally reacting to light. EOMI. No scleral icterus. No conjunctival pallor. Normocephalic, atraumatic. No pharyngeal erythema. No thyromegaly. CARDIOVASCULAR: S1 and S2 present. No murmurs, rubs, or gallops. PULMONARY: expiratory wheezing and exam ABDOMEN: Soft, nontender, nondistended, normoactive bowel sounds. No palpable organomegaly. MUSCULOSKELETAL: No joint swelling or deformity. EXTREMITIES: No cyanosis, clubbing, or pedal edema. NEUROLOGICAL: Gross neurological examination did not reveal any new focal deficits. The patient has some chronic weakness on the left than the patient walks well with the help of a cane. No focal neurological deficit or any new onset neurological deficits. This is related to previous stroke. Examination of the skin revealed no evidence of significant rashes, suspicious appearing nevi or other concerning lesions. - Labs CBC & Chem 7: 08/10/21 07:34 08/10/21 07:34 Labs: Abnormal Lab Results - Last 24 Hours (Table) 08/09/21 08/09/21 08/10/21 Range/Units 16:27 20:19 06:18 WBC (3.8-10.6) k/uL Plt Count (150-450) k/uL Neutrophils # (1.3-7.7) k/uL Lymphocytes # (1.0-4.8) k/uL Sodium (137-145) mmol/L Carbon Dioxide (22-30) mmol/L Glucose (74-99) mg/dL POC Glucose (mg/dL) 237 H 202 H 100 H (75-99) mg/dL AST (17-59) U/L ALT (4-49) U/L Lactate Dehydrogenase (313-618) U/L C-Reactive Protein (<1.0) mg/dL Total Protein (6.3-8.2) g/dL Albumin (3.5-5.0) g/dL 08/10/21 08/10/21 08/10/21 Range/Units 07:34 07:34 07:34 WBC 16.1 H (3.8-10.6) k/uL Plt Count 503 H (150-450) k/uL Neutrophils # 14.4 H (1.3-7.7) k/uL Lymphocytes # 0.9 L (1.0-4.8) k/uL Sodium 136 L (137-145) mmol/L Carbon Dioxide 32 H (22-30) mmol/L Glucose 102 H (74-99) mg/dL POC Glucose (mg/dL) (75-99) mg/dL AST 81 H (17-59) U/L ALT 153 H (4-49) U/L Lactate Dehydrogenase 951 H (313-618) U/L C-Reactive Protein 13.0 H (<1.0) mg/dL Total Protein 5.4 L (6.3-8.2) g/dL Albumin 2.5 L (3.5-5.0) g/dL 08/10/21 Range/Units 11:43 WBC (3.8-10.6) k/uL Plt Count (150-450) k/uL Neutrophils # (1.3-7.7) k/uL Lymphocytes # (1.0-4.8) k/uL Sodium (137-145) mmol/L Carbon Dioxide (22-30) mmol/L Glucose (74-99) mg/dL POC Glucose (mg/dL) 135 H (75-99) mg/dL AST (17-59) U/L ALT (4-49) U/L Lactate Dehydrogenase (313-618) U/L C-Reactive Protein (<1.0) mg/dL Total Protein (6.3-8.2) g/dL Albumin (3.5-5.0) g/dL Microbiology - Last 24 Hours (Table) 08/05/21 18:31 Blood Culture - Preliminary Blood No Growth after 96 hours Assessment and Plan Plan: 1 acute COVID 19 related pneumonia. Symptoms started approximately 7-10 days prior to presentation and the patient progressively got worse and presented to us with worsening shortness of breath and acute hypoxic arrest respiratory failure with bilateral COVID 19 related pulmonary infiltrates. The patient is not vaccinated for now. The CT angiogram was consistent with pneumonia. There was no evidence of any pulmonary embolism. Doppler of the lower extremity is been negative. The patient's condition is currently stable and the patient is currently on 100% nonrebreather facemask in addition to 15 L nasal cannula. He desaturates easily with activity and speech. Nevertheless, he recovers getting dressed. He remains on examination Decadron and Baricitinib. Inflammatory markers have been improving and the LDH level is down to 951. No other new c omplaints otherwise for now. I with his condition has been essentially stable over the past 24 hours. 2 . acute hypoxic respiratory failure secondary to above, currently on 15 L of oxygen by nasal cannula 100% nonrebreather facemask 3 shortness of breath secondary to above 4 troponin leak, consider an acute non-STEMI. The patient has no acute ischemic changes on EKG 5 history of multiple CVAs with some residual visual deficits and difficult with gait and the patient walks with the help of a cane 6 history of coronary artery disease with previous history of myocardial infarction 7 hyperlipidemia 8 hypertension 9 hyponatremia, likely hypovolemic, improved and sodium level is normalized 10 acute leukocytosis under investigation for now Plan The patient on 100% nonrebreather facemask, respiration is still borderline and the patient continues to been 100% on facemask. Inflammatory markers including LDH is improved. The d-dimer was up to 5.7. CT angiogram done on 08/06/2021 showed no evidence of any pulmonary embolism. Repeat chest x-ray from today shows no interval change in the patient continues to have bilateral disease. Continue Decadron 6 mg IV every 24 hours and Baricitinib per protocol. Awaiting final cultures. The white cell count remains elevated Follow-up inflammatory markers Continue Lovenox for DVT prophylaxis Echocardiogram was noted We'll continue to follow. No changes condition. Continues to be treated with a combination of Decadron and Baricitinib.
[2021-08-10 16:19] LABS: Glucose,Whole Blood 211 mg/dL (75-99)
[2021-08-10] MEDS: BARICITINIB 2 MG TABLET PO SCH (17:23)
[2021-08-10] MEDS: ATORVASTATIN 40 MG TAB PO SCH (20:05)
[2021-08-10 20:35] LABS: Glucose,Whole Blood 192 mg/dL (75-99)
[2021-08-11] MEDS: SODIUM CHLORIDE 0.9% 1,000 ML IV SCH (03:50)
[2021-08-11 06:25] LABS: Glucose,Whole Blood 98 mg/dL (75-99)
[2021-08-11] MEDS: INSULIN ASPART (NovoLOG) 100 UNIT/ML VIAL SQ SCH ×4 (06:29→20:32)
[2021-08-11] MEDS: ALBUTEROL HFA INHALER INHALATION PRN ×4 (09:12→19:29)
[2021-08-11] MEDS: ASCORBIC ACID 500 MG TAB PO SCH ×2 (09:40→20:31)
[2021-08-11] MEDS: METOPROLOL TARTRATE 50 MG TAB PO SCH ×2 (09:40→20:32)
[2021-08-11] MEDS: ZINC SULFATE 220 MG CAP PO SCH (09:41)
[2021-08-11] MEDS: ASPIRIN 81 MG PO SCH (09:41)
[2021-08-11] MEDS: ENOXAPARIN 40 MG/0.4 ML SYRINGE SQ SCH ×2 (09:41→20:32)
[2021-08-11] MEDS: lisinopriL 10 MG TAB PO SCH (09:41)
[2021-08-11] MEDS: FAMOTIDINE 20 MG TAB PO SCH (09:41)
[2021-08-11] MEDS: CHOLECALCIFEROL 125 MCG (5000 IU) TABLET PO SCH (09:41)
[2021-08-11] MEDS: DEXAMETHASONE SOD PHOSPHATE 10 MG/ML 1 ML VIAL IVP SCH (09:41)
[2021-08-11 10:37] LABS: ALT 186 U/L (4-49); AST 85 U/L (17-59); African American GFR (CKD) >90 (>60 ml/min/1.73 sqM); Albumin 2.7 g/dL (3.5-5.0); Alkaline Phosphatase 78 U/L (38-126); Anion Gap 6 mmol/L; Blood Urea Nitrogen 24 mg/dL (9-20); Calcium 8.6 mg/dL (8.4-10.2); Carbon Dioxide 32 mmol/L (22-30); Chloride 97 mmol/L (98-107); Glucose 219 mg/dL (74-99); Non-African American GFR(CKD) 85 (>60 ml/min/1.73 sqM); Sodium 135 mmol/L (137-145); Total Bilirubin 0.5 mg/dL (0.2-1.3); Total Protein 5.7 g/dL (6.3-8.2)
[2021-08-11 11:15] LABS: Basophils % (A) 0 %; Eosinophils # (A) 0.2 k/uL (0-0.7); Eosinophils % (A) 1 %; HCT 43.1 % (39.0-53.0); HGB 14.4 gm/dL (13.0-17.5); Lymphocytes # (A) 1.2 k/uL (1.0-4.8); Lymphocytes % (A) 8 %; MCH 30.3 pg (25.0-35.0); MCHC 33.6 g/dL (31.0-37.0); MCV 90.4 fL (80.0-100.0); Mean Platelet Volume 7.8; Monocytes # (A) 0.4 k/uL (0-1.0); Monocytes % (A) 3 %; Neutrophils # (A) 13.7 k/uL (1.3-7.7); Neutrophils % (A) 88 %; Platelet Count 461 k/uL (150-450); RBC 4.76 m/uL (4.30-5.90); RDW 13.6 % (11.5-15.5); WBC 15.7 k/uL (3.8-10.6)
[2021-08-11 12:10] LABS: Glucose,Whole Blood 232 mg/dL (75-99)
--- NOTE | 2021-08-11 12:35 | P.PN ---
Subjective Progress Note Date: 08/11/21 76-year-old pleasant male came in with complaints of shortness of breath and cough and patient is on 6 L of oxygen and found to have Covid 19 pneumonia chest x-ray is consistent with Covid 19. Patient is bit hyponatremic as well. Patient does have history of diabetes mellitus. Patient vaccinated for Covid 19 patient symptoms has been going on for about a week patient's d-dimer is around 0.7. Patient is presently on Lovenox for DVT prophylaxis. Patient denied any history of COPD or asthma patient last smoked about 52 years ago still has significant wheezing on exam. And has a significant generalized weakness and fatigue 08/06/2021 Patient is significant for the bed. He is on a 15 L nonrebreather with oxygen saturation in the low 90s. Blood pressure is 134/60, afebrile, heart rate 71, respirations are in the 20s. Patient's infraclavicular pulmonary services. He did have a CTA completed today which demonstrates no evidence for PE, diffuse bilateral pneumonia. Venous Doppler negative for bilateral DVT. Labs today: white blood cell count 23.2, d-dimer 0.74, sodium 131 which is improving, potassium 4, AST 119, ALT 115, LDH 1086, CRP 18, albumin 2.9. Urinalysis negative for infection, 1+ protein 1+ ketones. Echocardiography shows an EF of 55-60% with preserved LV function, mild mitral and trace tricuspid regurgitation. 08/07/21 Patient is evaluated today resting at the bedside. He is 15L high flow nasal cannula as well as a 15 L nonrebreather with oxygen saturation of 93%. Heart rate is tachycardic in the 110s, afebrile, blood pressure 143/77. Labs today show white count 16.6, d-dimer 2.16, sodium 136, AST ALT elevated at 76 and 109, LDH 1121, CRP 14.4. Pro-calcitonin is 0.20. Patient is being followed closely pulmonary services. He is on IV Rocephin empirically as well as Decadron IV and Covid vitamins. 08/08/2021 Patient evaluated today sitting on the bedside. He is on 15L NRB and 15L High flow cannula with an oxygen saturation of 93%, heart rate 100, blood pressure 152/81, afebrile. Labs review today, DD 5.70, sodium 134, potassium 4.2, blood sugar in the 200s. Patient does not to appear in any respiratory distress, however does say he is short of breath. He is able to get to the bedside commode and move around in his room around his bed. Patient is being followed closely by pulmonary services. Chest xray today reveals bilateral multifocal and confluent opacities greater in the left lung redemonstrated consistent with known COVID 19 infection, no significant change from most recent CT study. Blood cultures are negative. Prognosis remains guarded, continues on Decadron IVP, zinc, and COVID vitamins. 08/09/2021 No acute events over night. Patient continues on 15L NRB and 15L HF cannula. Oxygen saturation is 90%, afebrile, heart rate 62, blood pressure 152/77. Labs today, WBC 18.4, platelet 531, sodium 137, blood sugar in the high 200s. AST 86, ALT 117, albumin 2.7. Reports shortness of breath with exertion, however he is able to get to the BSC and back to bed. He is eating well, denies n/v/d. 08/10/2021 Patient evaluated today resting in bed, oxygen sats is mainly unchanged. He continues any 15L high flow cannula with 15 L nonrebreather 92% oxygenation, blood pressure 130/71, heart rate 84, afebrile. Labs today show white count 16.1, sodium 136, potassium 4.5, CO2 32, blood sugars in the 100s, AST 81, ALT 153, LDH 951, CRP 13.0, total protein 5.4, albumin 2.5. Repeat chest x-ray today shows no interval change in the scattered lung airspace opacities. Continue to follow along monitor closely he is being followed by pulmonary services. Prognosis is guarded, patient continues on Decadron IV, zinc, vitamins, BRANNON, and Lovenox. 08/11/2021 No acute events over night. Patient continues on 15L NRB and 15L HF cannula, he is being followed closely by pulmonary and is on Vitamin C, Vitamin D3, Zinc, Decadron, Lovenox, and Brannon. Labs today show a WBC count of 15.7, sodium 135, potassium 5, chloride 97, CO2 32, BUN 24, creatinine 0.85. Sugars in the 200's. AST 85 ALT 186, albumin 2.7. Vitals reviewed: 97.5, heart rate 107, blood pressure 117/76, 92% oxygenation. We will hold lisinopril today and his BP is lower side today. He is eating okay, and feels discouraged today with his overall condition. Essentially he feels his breathing isn't better or worse. ROS Constitutional: Denied any fatigue denied any fever. Cardio vascular: denied any chest pain, palpitations Gastrointestinal: denied any nausea vomiting, diarrhea, reports ok appetite Pulmonary: Reports shortness of breath at rest, with exertion, reports mild intermittent cough Neurologic denied any new focal deficits All inpatient medications were reviewed and appropriate changes in these medications as dictated in the interval history and assessment and plan. PHYSICAL EXAMINATION: GENERAL: The patient is alert and oriented x3, not in any acute distress. Morbidly obese HEENT: Pupils are round and equally reacting to light. EOMI. No scleral icterus. No conjunctival pallor. Normocephalic, atraumatic. No pharyngeal erythema. No thyromegaly. CARDIOVASCULAR: S1 and S2 present. No murmurs, rubs, or gallops. PULMONARY: Bibasilar Rales. ABDOMEN: Soft, nontender, nondistended, normoactive bowel sounds. No palpable organomegaly. MUSCULOSKELETAL: No joint swelling or deformity. EXTREMITIES: No cyanosis, clubbing, or pedal edema. NEUROLOGICAL: Gross neurological examination did not reveal any new focal deficits. SKIN: No rashes. Assessment and plan -Acute hypoxic respiratory failure secondary to Covid 19 pneumonia, symptoms began about 7 to 10 days prior to admission, he is on 15L NRB and 15L HF NC. -Leukocytosis secondary to above -Shortness of breath, secondary to above -Elevated DD, CTA - no evidence for PE -Elevated liver enzymes and is due to acute systemic inflammation from COVID-19 infection -Hyperkalemia, hold lisinopril today -History of CVA with right residual weakness affecting gait, requiring cane -Hypertension -Type 2 diabetes mellitus which patient the will be started on sliding scale insulin and hold off on metformin. -Obesity -Hyperlipidemia -History of MD -Coronary artery disease status post cardiac catheterization DVT prophylaxis: Lovenox GI Prophylaxis: Pepcid Plan IV fluids KVO Hold lisinopril today Continue Decadron, covid vitamins, BRANNON Continue all other supportive care Repeat labs tomorrow Prognosis is guarded for this patient Objective - Vital Signs Vital signs: Vital Signs Temp 98.2 F 08/11/21 03:25 Pulse 56 L 08/11/21 03:25 Resp 20 08/11/21 03:25 BP 134/68 08/11/21 03:25 Pulse Ox 90 L 08/11/21 03:25 Intake & Output 08/10/21 08/11/21 08/11/21 18:59 06:59 18:59 Intake Total 1080 Balance 1080 Weight 96.5 kg Intake: Oral 1080 Other: Voiding Method Bedside Commode Urinal # Voids 2 1 # Bowel Movements 1 - Labs CBC & Chem 7: 08/11/21 09:11 08/11/21 09:11 Labs: Abnormal Lab Results - Last 24 Hours (Table) 08/10/21 08/10/21 08/10/21 Range/Units 11:43 16:17 20:27 POC Glucose (mg/dL) 135 H 211 H 192 H (75-99) mg/dL Microbiology - Last 24 Hours (Table) 08/05/21 18:31 Blood Culture - Preliminary Blood No Growth after 120 hours
[2021-08-11 14:59] VITALS: BMI 28.8
[2021-08-11 16:34] LABS: Glucose,Whole Blood 218 mg/dL (75-99)
[2021-08-11] MEDS: BARICITINIB 2 MG TABLET PO SCH (17:54)
--- NOTE | 2021-08-11 18:32 | P.PN ---
Subjective Progress Note Date: 08/11/21 Principal diagnosis: Acute hypoxic respiratory failure secondary to COVID-19 pneumonia 76-year-old male patient, who presented initially to [facility] and later on transferred to [facility] because of COVID 19 related pneumonia and shortness of breath. Both himself and his felt sick. Both of them are hospitalized for now. The patient started getting sick approximately over a week ago and he recalls his symptoms started approximately 10 days ago. He started having fatigue and tiredness and malaise in addition to some cough and shortness of breath. He ultimately became very weak. He presented to [facility] via EMS. His son noticed that the patient was quite ill and he called EMS and accordingly got transferred to the hospital. The patient has no history of any chronic lung disease. He is a nonsmoker for now. He has not received his vaccination for COVID 19. The patient had no nausea or vomiting no diarrhea. No altered mentation. He was quite hypoxic upon arrival and the patient is currently on 7 L of oxygen by nasal cannula to build a pulse ox of around 85-86%. The patient had a white cell count of 21.2, hemoglobin 14.5, his sodium was 128,. Troponin elevation of 0.4-3 and later on down to 0.287, his d-dimer is at 0.7, normal renal function, resident inflammatory markers are still pending including LDH and CRP. White cell count is at 21.2 with a hemoglobin of 14.5. Chest x-ray is consistent with bilateral pulmonary infiltrates consistent with COVID 19 related pneumonia. EKG showed sinus tachycardia, occasional premature supraventricular complexes and left atrial enlargement. No evidence of any acute ischemic changes. No reported chest pain. No previous history of DVT or pulmonary embolism. 08/06/2021, seeing the patient for a follow-up. The patient is still having labored breathing. The patient was on a high flow oxygen at 15 L and he was switched to 100% nonrebreather facemask. He feels more comfortable with a full facemask for now. He remains on Decadron. No new complaints otherwise. Foc used on level was borderline elevated and the patient was given IV Rocephin as an empiric antibiotic coverage. Meanwhile, 2-D echocardiogram was done and was essentially within normal limits. He has a preserved LV function. His ejection fraction is around 55-60%. He does have mild mitral regurgitation. He has also trace tricuspid regurgitation. No significant valvular abnormalities. The pat ient has no other new complaints for now. He is currently on Decadron. I'm considering starting this patient on Baricitinib per protocol. He does not have clear indication for an underlying infection. He remains on anticoagulation with Lovenox 40 mg subcu for DVT prophylaxis. 08/07/2021, the patient is being seen for a follow-up. He remains on 100% on a beta facemask along with 15 L about 2 by nasal cannula. He feels better on today's evaluation. He states that he is less short of breath. Nevertheless, the patient continues to be hypoxic. The patient is also on Decadron 6 mg IV every 24 hours. There was suspicion for an underlying infection. The patient did have and the patient had a white cell count of 16.6. The white cell count was as high as 23. He is on empiric antibiotic coverage with IV Rocephin. Cultures are negative. We'll monitor the white count for now. The d-dimer today's at 2.1. His LDH level was 1121 and his CRP is 14.4. The patient's focused on her level dropped down to 0.2 from a baseline of 0.37. The Doppler of the lower extremity was negative. The CT angiogram showed no evidence of any pulmonary embolism. Echocardiogram was consistent with normal LV function. I'm still considering starting the patient on Baricitinib at a later stage once the cultures are essentially finalized. On 08/08/2021 patient seen in follow-up on selective care unit, patient is on 15 L high flow nasal cannula and her percent nonrebreather mask, and his pulse ox i s 92%. He is short of breath with exertion, and conversation, but no acute distress was noted, his been get not been using the bedside commode, tolerates it fairly well. Afebrile, hemodynamically stable. Today's chest x-ray has been reviewed showing bilateral multifocal and confluent opacities greater on the left consistent with known history of COVID-19 infection with no significant change. Today's lab have been reviewed, his d-dimer is 5.7, increased from yesterday's value, sodium is 134, and respiratory electrolytes are within normal limits, BUN is 18 creatinine 0.69. CRP is 21, his LDH has increased to 1223. Urinalysis a few days ago showed 1+ ketones, +1 protein, and many bacteria, patient was treated for possibility of urinary tract infection with Rocephin, his repeat pro calcitonin came back lower at 0.20, and urine culture showed no growth. Rocephin will be discontinued. Culture showed no growth. Lung sounds reveal diffuse bilateral crackles. Patient appears to be mildly fatigued, but no acute distress. 08/09/2021, the patient is being seen for a follow-up. He was on a combination of 100% nonrebreather facemask and 15 L nasal cannula. I took him off the 100% nonrebreather while having foot and the patient was able to maintain a saturation as low as 90%. I would consider this to be an improvement. Otherwise the patient is doing well. No specific complaints. Is a good appetite. He has no new complaints. He gets short of breath with speech and minimal amount of activity. His electrodes are all within normal limits. His LFTs are slightly elevated and the patient has a component of mild transaminitis. The patient is also noted to have a white cell count of 18.4 with a hemoglobin of 14.3. No other new complaints otherwise for now. Is afebrile. His hemodynamics are stable. He remains on a combination of Decadron and Baricitinib. 08/10/2021, the patient is doing well. No specific complaints. Remains on a on the percent nonrebreather facemask in addition to 15 L of oxygen by nasal cannula. Condition is unchanged compared to yesterday and the patient continues to desaturate whenever he takes off his nonrebreather fullface mask. For instance, while having lunch, pulse ox dropped down to the 70s while off the mask. As such, he needs both sources of oxygen. He remains on Decadron. He remains on Baricitinib per protocol. He is also on Lovenox 40 mg subcu for prophylaxis. On his blood work, the patient's LDH level is down to 951, CRP is down to 13, normal coagulation profile, white cell count is 16.1 with a hemoglobin of 13.6. Platelet count is normal at 503. No fever. No chills. No sweats. No other complaints otherwise for now. Reevaluated today on 08/11/2021, patient remains on high flow oxygen. He is actually on 15 L high flow, nonrebreather mask, patient is surprisingly doing well, does not seem to be in any distress, chest x-ray is quite abnormal showing significant bilateral infiltrates. Patient remains on Decadron, remains on Lovenox 40 mg subcu daily, and he remains on baricitinib. WBC count is trending down down to 15.7 hemoglobin 14.4 electrolytes are normal renal profile is normal liver enzymes are slightly elevated with AST of 85 AST of 186. No calcitonin on admission was 0.20. Chest x-ray from yesterday showed no change compared to admission x-ray, continues to have scattered opacities in both lungs. Objective - Vital Signs Vital signs: Vital Signs Temp 98.1 F 08/11/21 16:00 Pulse 88 08/11/21 16:00 Resp 22 08/11/21 16:00 BP 118/74 08/11/21 16:00 Pulse Ox 91 L 08/11/21 16:00 Intake & Output 08/10/21 08/11/21 08/11/21 18:59 06:59 18:59 Intake Total 1080 600 Output Total 400 Balance 1080 200 Weight 96.5 kg 96.5 kg Intake: Oral 1080 600 Output: Urine 400 Other: Voiding Method Bedside Commode Bedside Commode Urinal Urinal # Voids 2 1 # Bowel Movements 1 - Exam GENERAL: Revealed a 76-year-old white male, on the commode, on nonrebreather mask, does not seem to be in distress. Head: Atraumatic, normocephalic. HEENT: PERRLA, EOMI, nonicteric, no neck masses, no JVD. CARDIOVASCULAR: normal S1 and S2, no S3 gallop. PULMONARY: Significant crackles and rhonchi noted bilaterally at the bases. No wheezing. MUSCULOSKELETAno limitation in range of motion no deformities. EXTREMITIES: No cyanosis, clubbing, or pedal edema. NEUROLOGICAL: Gross neurological examination did not reveal any new focal deficits. The patient has some chronic weakness on the left than the patient walks well with the help of a cane. No focal neurological deficit or any new onset neurological deficits. This is related to previous stroke. Examination of the skin revealed no evidence of significant rashes. - Labs CBC & Chem 7: 08/11/21 09:11 08/11/21 09:11 Labs: Abnormal Lab Results - Last 24 Hours (Table) 08/10/21 08/11/21 08/11/21 Range/Units 20:27 09:11 09:11 WBC 15.7 H (3.8-10.6) k/uL Plt Count 461 H (150-450) k/uL Neutrophils # 13.7 H (1.3-7.7) k/uL Sodium 135 L (137-145) mmol/L Chloride 97 L (98-107) mmol/L Carbon Dioxide 32 H (22-30) mmol/L BUN 24 H (9-20) mg/dL Glucose 219 H (74-99) mg/dL POC Glucose (mg/dL) 192 H (75-99) mg/dL AST 85 H (17-59) U/L ALT 186 H (4-49) U/L Total Protein 5.7 L (6.3-8.2) g/dL Albumin 2.7 L (3.5-5.0) g/dL 08/11/21 08/11/21 Range/Units 12:09 16:33 WBC (3.8-10.6) k/uL Plt Count (150-450) k/uL Neutrophils # (1.3-7.7) k/uL Sodium (137-145) mmol/L Chloride (98-107) mmol/L Carbon Dioxide (22-30) mmol/L BUN (9-20) mg/dL Glucose (74-99) mg/dL POC Glucose (mg/dL) 232 H 218 H (75-99) mg/dL AST (17-59) U/L ALT (4-49) U/L Total Protein (6.3-8.2) g/dL Albumin (3.5-5.0) g/dL Microbiology - Last 24 Hours (Table) 08/05/21 18:31 Blood Culture - Preliminary Blood No Growth after 120 hours Assessment and Plan Assessment: Impression: Acute COVID-19 pneumonia with acute hypoxic respiratory failure, CT angiogram showed no evidence of pulmonary embolism. Patient is on multiple medications for COVID-19 infection including baricitinib History of CVA History of dyslipidemia Coronary artery disease and previous myocardial infarction Benign essential hypertension Hypovolemic hyponatremia Troponin leak Recommendation: Continue nonrebreather mask and titrate oxygen accordingly Continue COVID-19 cocktail including Decadron, continue Baricitinib Continue to monitor inflammatory markers Continue Lovenox Patient is not ready for any discharge planning unless we have his FiO2 titrated down to 5 L nasal cannula or less Doses remains definitely guarded. Time with Patient: Less than 30
[2021-08-11 20:25] LABS: Glucose,Whole Blood 198 mg/dL (75-99)
[2021-08-11] MEDS: ATORVASTATIN 40 MG TAB PO SCH (20:31)
[2021-08-12] MEDS ORDERED: ACETAMINOPHEN TAB 325 MG TAB PO PRN (03:21)
[2021-08-12 06:11] LABS: Basophils # (A) 0.1 k/uL (0-0.2); Basophils % (A) 0 %; Eosinophils # (A) 0.1 k/uL (0-0.7); Eosinophils % (A) 1 %; HCT 42.8 % (39.0-53.0); HGB 14.3 gm/dL (13.0-17.5); Lymphocytes # (A) 1.4 k/uL (1.0-4.8); Lymphocytes % (A) 8 %; MCH 29.8 pg (25.0-35.0); MCHC 33.5 g/dL (31.0-37.0); MCV 88.9 fL (80.0-100.0); Mean Platelet Volume 7.3; Monocytes # (A) 0.6 k/uL (0-1.0); Monocytes % (A) 3 %; Neutrophils # (A) 14.8 k/uL (1.3-7.7); Neutrophils % (A) 87 %; Platelet Count 444 k/uL (150-450); RBC 4.81 m/uL (4.30-5.90); RDW 13.2 % (11.5-15.5)
[2021-08-12 06:11] LABS: Glucose,Whole Blood 101 mg/dL (75-99)
[2021-08-12] MEDS: INSULIN ASPART (NovoLOG) 100 UNIT/ML VIAL SQ SCH ×4 (06:12→20:54)
[2021-08-12 06:33] LABS: ALT 261 U/L (4-49); AST 138 U/L (17-59); African American GFR (CKD) >90 (>60 ml/min/1.73 sqM); Albumin 2.6 g/dL (3.5-5.0); Alkaline Phosphatase 80 U/L (38-126); Anion Gap 4 mmol/L; Blood Urea Nitrogen 23 mg/dL (9-20); Calcium 8.6 mg/dL (8.4-10.2); Carbon Dioxide 29 mmol/L (22-30); Chloride 101 mmol/L (98-107); Glucose 103 mg/dL (74-99); LDH 1073 U/L (313-618); Non-African American GFR(CKD) >90 (>60 ml/min/1.73 sqM); Sodium 134 mmol/L (137-145); Total Bilirubin 0.5 mg/dL (0.2-1.3); Total Protein 5.7 g/dL (6.3-8.2)
[2021-08-12 07:33] LABS: C Reactive Protein 5.9 mg/dL (<1.0)
[2021-08-12] MEDS ORDERED: SODIUM POLYSTYRENE SULFONATE 15 GM/60 ML BOTTLE PO ONE (08:31)
[2021-08-12 11:46] LABS: Glucose,Whole Blood 154 mg/dL (75-99)
[2021-08-12] MEDS: CHOLECALCIFEROL 125 MCG (5000 IU) TABLET PO SCH (12:23)
[2021-08-12] MEDS: ASPIRIN 81 MG PO SCH (12:23)
[2021-08-12] MEDS: DEXAMETHASONE SOD PHOSPHATE 10 MG/ML 1 ML VIAL IVP SCH ×2 (12:23→20:54)
[2021-08-12] MEDS: ASCORBIC ACID 500 MG TAB PO SCH ×2 (12:23→20:53)
[2021-08-12] MEDS: METOPROLOL TARTRATE 50 MG TAB PO SCH ×2 (12:24→20:53)
[2021-08-12] MEDS: FAMOTIDINE 20 MG TAB PO SCH (12:24)
[2021-08-12] MEDS: ZINC SULFATE 220 MG CAP PO SCH (12:24)
[2021-08-12] MEDS: ENOXAPARIN 40 MG/0.4 ML SYRINGE SQ SCH ×2 (12:24→20:54)
[2021-08-12] MEDS: ALBUTEROL HFA INHALER INHALATION PRN (13:03)
--- NOTE | 2021-08-12 13:55 | P.PN ---
Subjective Progress Note Date: 08/12/21 76-year-old pleasant male came in with complaints of shortness of breath and cough and patient is on 6 L of oxygen and found to have Covid 19 pneumonia chest x-ray is consistent with Covid 19. Patient is bit hyponatremic as well. Patient does have history of diabetes mellitus. Patient vaccinated for Covid 19 patient symptoms has been going on for about a week patient's d-dimer is around 0.7. Patient is presently on Lovenox for DVT prophylaxis. Patient denied any history of COPD or asthma patient last smoked about 52 years ago still has significant wheezing on exam. And has a significant generalized weakness and fatigue 08/06/2021 Patient is significant for the bed. He is on a 15 L nonrebreather with oxygen saturation in the low 90s. Blood pressure is 134/60, afebrile, heart rate 71, respirations are in the 20s. Patient's infraclavicular pulmonary services. He did have a CTA completed today which demonstrates no evidence for PE, diffuse bilateral pneumonia. Venous Doppler negative for bilateral DVT. Labs today: white blood cell count 23.2, d-dimer 0.74, sodium 131 which is improving, potassium 4, AST 119, ALT 115, LDH 1086, CRP 18, albumin 2.9. Urinalysis negative for infection, 1+ protein 1+ ketones. Echocardiography shows an EF of 55-60% with preserved LV function, mild mitral and trace tricuspid regurgitation. 08/07/21 Patient is evaluated today resting at the bedside. He is 15L high flow nasal cannula as well as a 15 L nonrebreather with oxygen saturation of 93%. Heart rate is tachycardic in the 110s, afebrile, blood pressure 143/77. Labs today show white count 16.6, d-dimer 2.16, sodium 136, AST ALT elevated at 76 and 109, LDH 1121, CRP 14.4. Pro-calcitonin is 0.20. Patient is being followed closely pulmonary services. He is on IV Rocephin empirically as well as Decadron IV and Covid vitamins. 08/08/2021 Patient evaluated today sitting on the bedside. He is on 15L NRB and 15L High flow cannula with an oxygen saturation of 93%, heart rate 100, blood pressure 152/81, afebrile. Labs review today, DD 5.70, sodium 134, potassium 4.2, blood sugar in the 200s. Patient does not to appear in any respiratory distress, however does say he is short of breath. He is able to get to the bedside commode and move around in his room around his bed. Patient is being followed closely by pulmonary services. Chest xray today reveals bilateral multifocal and confluent opacities greater in the left lung redemonstrated consistent with known COVID 19 infection, no significant change from most recent CT study. Blood cultures are negative. Prognosis remains guarded, continues on Decadron IVP, zinc, and COVID vitamins. 08/09/2021 No acute events over night. Patient continues on 15L NRB and 15L HF cannula. Oxygen saturation is 90%, afebrile, heart rate 62, blood pressure 152/77. Labs today, WBC 18.4, platelet 531, sodium 137, blood sugar in the high 200s. AST 86, ALT 117, albumin 2.7. Reports shortness of breath with exertion, however he is able to get to the BSC and back to bed. He is eating well, denies n/v/d. 08/10/2021 Patient evaluated today resting in bed, oxygen sats is mainly unchanged. He continues any 15L high flow cannula with 15 L nonrebreather 92% oxygenation, blood pressure 130/71, heart rate 84, afebrile. Labs today show white count 16.1, sodium 136, potassium 4.5, CO2 32, blood sugars in the 100s, AST 81, ALT 153, LDH 951, CRP 13.0, total protein 5.4, albumin 2.5. Repeat chest x-ray today shows no interval change in the scattered lung airspace opacities. Continue to follow along monitor closely he is being followed by pulmonary services. Prognosis is guarded, patient continues on Decadron IV, zinc, vitamins, BRANNON, and Lovenox. 08/11/2021 No acute events over night. Patient continues on 15L NRB and 15L HF cannula, he is being followed closely by pulmonary and is on Vitamin C, Vitamin D3, Zinc, Decadron, Lovenox, and Brannon. Labs today show a WBC count of 15.7, sodium 135, potassium 5, chloride 97, CO2 32, BUN 24, creatinine 0.85. Sugars in the 200's. AST 85 ALT 186, albumin 2.7. Vitals reviewed: 97.5, heart rate 107, blood pressure 117/76, 92% oxygenation. We will hold lisinopril today and his BP is lower side today. He is eating okay, and feels discouraged today with his overall condition. Essentially he feels his breathing isn't better or worse. 08/12/2021 Patient continues to be evaluated in the medical floor. He continues on a nonrebreather at 15 L and high flow cannula at 15 L, oxygen saturation is 92%. He remains afebrile, blood pressure 117/86. Heart rate is in the range from 57 sinus bradycardia up to 106. It appears he is isolated moments of tachycardia. Labs today show white blood cell count of 17, d-dimer 3.49, sodium 134, potassium 5, BUN 23, creatinine 0.71, AST 138, ALT 261, LDH 1073, CRP 5.9. Blood sugars in the 100s. We did give a small dose of kayexelate for the potassium. Fluids were discontinued for adequate oral intake, however sodium remains on the lower side will resume saline at 50 mL per hour, EF is 55 -60% patient should tolerate this okay. Patient feels discouraged today, and stir crazy. Being followed closely by pulmonary intensive care services. ROS Constitutional: Denied any fatigue denied any fever. Cardio vascular: denied any chest pain, palpitations Gastrointestinal: denied any nausea vomiting, diarrhea, reports ok appetite Pulmonary: Reports shortness of breath at rest, with exertion, reports mild intermittent cough Neurologic denied any new focal deficits All inpatient medications were reviewed and appropriate changes in these medications as dictated in the interval history and assessment and plan. PHYSICAL EXAMINATION: GENERAL: The patient is alert and oriented x3, not in any acute distress. Morbidly obese. HEENT: Pupils are round and equally reacting to light. EOMI. No scleral icterus. No conjunctival pallor. Normocephalic, atraumatic. No pharyngeal erythema. No thyromegaly. CARDIOVASCULAR: S1 and S2 present. No murmurs, rubs, or gallops. PULMONARY: Bibasilar Rales, improving ABDOMEN: Soft, nontender, nondistended, normoactive bowel sounds. No palpable organomegaly. MUSCULOSKELETAL: No joint swelling or deformity. EXTREMITIES: No cyanosis, clubbing, +1 Pitting edema right ankle. NEUROLOGICAL: Gross neurological examination did not reveal any new focal deficits. SKIN: No rashes. Assessment and plan -Acute hypoxic respiratory failure secondary to Covid 19 pneumonia, symptoms began about 7 to 10 days prior to admission, he is on 15L NRB and 15L HF NC. 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 -Obesity -Hyperlipidemia -History of VT -Coronary artery disease status post cardiac catheterization DVT prophylaxis: Lovenox GI Prophylaxis: Pepcid Plan IV fluids Hold lisinopril Continue Decadron, covid vitamins, Baricitinib Continue all other supportive care Repeat labs tomorrow Prognosis is guarded for this patient Objective - Vital Signs Vital signs: Vital Signs Temp 97.9 F 08/12/21 03:48 Pulse 54 L 08/12/21 03:48 Resp 20 08/12/21 03:48 BP 119/68 08/12/21 03:48 Pulse Ox 91 L 08/12/21 03:48 Intake & Output 08/11/21 08/12/21 08/12/21 18:59 06:59 18:59 Intake Total 600 Output Total 400 Balance 200 Weight 96.5 kg 83.5 kg Intake: Oral 600 Output: Urine 400 Other: Voiding Method Bedside Commode Bedside Commode Urinal # Voids 3 # Bowel Movements 1 - Labs CBC & Chem 7: 08/12/21 05:50 08/12/21 05:50 Labs: Abnormal Lab Results - Last 24 Hours (Table) 08/11/21 08/11/21 08/11/21 Range/Units 09:11 09:11 12:09 WBC 15.7 H (3.8-10.6) k/uL Plt Count 461 H (150-450) k/uL Neutrophils # 13.7 H (1.3-7.7) k/uL D-Dimer (<0.60) mg/L FEU Sodium 135 L (137-145) mmol/L Chloride 97 L (98-107) mmol/L Carbon Dioxide 32 H (22-30) mmol/L BUN 24 H (9-20) mg/dL Glucose 219 H (74-99) mg/dL POC Glucose (mg/dL) 232 H (75-99) mg/dL AST 85 H (17-59) U/L ALT 186 H (4-49) U/L Lactate Dehydrogenase (313-618) U/L C-Reactive Protein (<1.0) mg/dL Total Protein 5.7 L (6.3-8.2) g/dL Albumin 2.7 L (3.5-5.0) g/dL 08/11/21 08/11/21 08/12/21 Range/Units 16:33 20:25 05:50 WBC 17.0 H (3.8-10.6) k/uL Plt Count (150-450) k/uL Neutrophils # 14.8 H (1.3-7.7) k/uL D-Dimer (<0.60) mg/L FEU Sodium (137-145) mmol/L Chloride (98-107) mmol/L Carbon Dioxide (22-30) mmol/L BUN (9-20) mg/dL Glucose (74-99) mg/dL POC Glucose (mg/dL) 218 H 198 H (75-99) mg/dL AST (17-59) U/L ALT (4-49) U/L Lactate Dehydrogenase (313-618) U/L C-Reactive Protein (<1.0) mg/dL Total Protein (6.3-8.2) g/dL Albumin (3.5-5.0) g/dL 08/12/21 08/12/21 08/12/21 Range/Units 05:50 05:50 06:08 WBC (3.8-10.6) k/uL Plt Count (150-450) k/uL Neutrophils # (1.3-7.7) k/uL D-Dimer 3.49 H (<0.60) mg/L FEU Sodium 134 L (137-145) mmol/L Chloride (98-107) mmol/L Carbon Dioxide (22-30) mmol/L BUN 23 H (9-20) mg/dL Glucose 103 H (74-99) mg/dL POC Glucose (mg/dL) 101 H (75-99) mg/dL AST 138 H (17-59) U/L ALT 261 H (4-49) U/L Lactate Dehydrogenase 1073 H (313-618) U/L C-Reactive Protein 5.9 H (<1.0) mg/dL Total Protein 5.7 L (6.3-8.2) g/dL Albumin 2.6 L (3.5-5.0) g/dL Microbiology - Last 24 Hours (Table) 08/05/21 18:31 Blood Culture - Final Blood No Growth after 144 hours
--- NOTE | 2021-08-12 15:12 | P.PN ---
Subjective Progress Note Date: 08/12/21 Principal diagnosis: 76-year-old male patient, who presented initially to [facility] and later on transferred to [facility] because of COVID 19 related pneumonia and shortness of breath. Both himself and his felt sick. Both of them are hospitalized for now. The patient started getting sick approximately over a week ago and he recalls his symptoms started approximately 10 days ago. He started having fatigue and tiredness and malaise in addition to some cough and shortness of breath. He ultimately became very weak. He presented to [facility] via EMS. His son noticed that the patient was quite ill and he called EMS and accordingly got transferred to the hospital. The patient has no history of any chronic lung disease. He is a nonsmoker for now. He has not received his vaccination for COVID 19. The patient had no nausea or vomiting no diarrhea. No altered mentation. He was quite hypoxic upon arrival and the patient is currently on 7 L of oxygen by nasal cannula to build a pulse ox of around 85-86%. The patient had a white cell count of 21.2, hemoglobin 14.5, his sodium was 128,. Troponin elevation of 0.4-3 and later on down to 0.287, his d-dimer is at 0.7, normal renal function, resident inflammatory markers are still pending including LDH and CRP. White cell count is at 21.2 with a hemoglobin of 14.5. Chest x-ray is consistent with bilateral pulmonary infiltrates consistent with COVID 19 related pneumonia. EKG showed sinus tachycardia, occasional premature supraventricular complexes and left atrial enlargement. No evidence of any acute ischemic changes. No reported chest pain. No previous history of DVT or pulmonary embolism. 08/06/2021, seeing the patient for a follow-up. The patient is still having la bored breathing. The patient was on a high flow oxygen at 15 L and he was switched to 100% nonrebreather facemask. He feels more comfortable with a full facemask for now. He remains on Decadron. No new complaints otherwise. Focused on level was borderline elevated and the patient was given IV Rocephin as an empiric antibiotic coverage. Meanwhile, 2-D echocardiogram was done and was essentially within normal limits. He has a preserved LV function. His ejection fraction is around 55-60%. He does have mild mitral regurgitation. He has also trace tricuspid regurgitation. No significant valvular abnormalities. The patient has no other new complaints for now. He is currently on Decadron. I'm considering starting this patient on Baricitinib per protocol. He does not have clear indication for an underlying infection. He remains on anticoagulation with Lovenox 40 mg subcu for DVT prophylaxis. 08/07/2021, the patient is being seen for a follow-up. He remains on 100% on a beta facemask along with 15 L about 2 by nasal cannula. He feels better on today's evaluation. He states that he is less short of breath. Nevertheless, the patient continues to be hypoxic. The patient is also on Decadron 6 mg IV every 24 hours. There was suspicion for an underlying infection. The patient did have and the patient had a white cell count of 16.6. The white cell count was as high as 23. He is on empiric antibiotic coverage with IV Rocephin. Cultures are negative. We'll monitor the white count for now. The d-dimer today's at 2.1. His LDH level was 1121 and his CRP is 14.4. The patient's focused on her level dropped down to 0.2 from a baseline of 0.37. The Doppler of the lower extremity was negative. The CT angiogram showed no evidence of any pulmonary embolism. Echocardiogram was consistent with normal LV function. I'm still considering starting the patient on Baricitinib at a later stage once the cultures are essentially finalized. On 08/08/2021 patient seen in follow-up on selective care unit, patient is on 15 L high flow nasal cannula and her percent nonrebreather mask, and his pulse ox is 92%. He is short of breath with exertion, and conversation, but no acute distress was noted, his been get not been using the bedside commode, tolerates it fairly well. Afebrile, hemodynamically stable. Today's chest x-ray has been reviewed showing bilateral multifocal and confluent opacities greater on the left consistent with known history of COVID-19 infection with no significant change. Today's lab have been reviewed, his d-dimer is 5.7, increased from ye sterday's value, sodium is 134, and respiratory electrolytes are within normal limits, BUN is 18 creatinine 0.69. CRP is 21, his LDH has increased to 1223. Urinalysis a few days ago showed 1+ ketones, +1 protein, and many bacteria, patient was treated for possibility of urinary tract infection with Rocephin, his repeat pro calcitonin came back lower at 0.20, and urine culture showed no growth. Rocephin will be discontinued. Culture showed no growth. Lung sounds reveal diffuse bilateral crackles. Patient appears to be mildly fatigued, but no acute distress. On 08/12/2001 patient seen in follow-up on selective care, he remains on 15 L high flow nasal cannula, and 100 percent nonrebreather mask, his pulse ox is 92%, he is dyspneic with exertion, but patient has been able to get up and down to use the bedside commode, afebrile, hemodynamically he is been stable. Patient remains on Baricitinib, Decadron, prophylactic anticoagulation in the form of Lovenox. His last chest x-ray from 08/10/2021 showed no interval change in the scattered lung airspace opacities. His been reviewed, his platelet count 17, hemoglobin is 14.3, d-dimer is improved and is down to 3.49, sodium is 134, the rest of electrolytes were within normal limits, B1 is 23, creatinine is 0.71, his LDH is slightly increased from his most recent value, and is up to 1073, his CRP is improved and is down to 5.9. CT angiogram of the chest showed no evidence of pulmonary embolism, and lower extremity Dopplers were negative for DVT. Patient has been compliant with repositioning self in bed. Today he is feeling depressed, he is teary-eyed, his is hospitalized at [facility], with COVID-19 pneumonia, she is critically ill, she is intubated, sedated and paralyzed, and apparently she took a turn for the worse. Objective - Vital Signs Vital signs: Vital Signs Temp 98.3 F 08/12/21 08:00 Pulse 106 H 08/12/21 08:00 Resp 22 08/12/21 08:00 BP 117/86 08/12/21 08:00 Pulse Ox 92 L 08/12/21 08:00 Intake & Output 08/11/21 08/12/21 08/12/21 18:59 06:59 18:59 Intake Total 600 120 Output Total 400 Balance 200 120 Weight 96.5 kg 83.5 kg Intake: Oral 600 120 Output: Urine 400 Other: Voiding Method Bedside Commode Bedside Commode Bedside Commode Urinal # Voids 3 # Bowel Movements 1 - Exam GENERAL EXAM: Alert, very pleasant, 76-year-old white male, currently on 15 L per high flow nasal cannula and on her percent nonrebreather mask, with pulse ox of 92-95%, comfortable in no apparent distress. Patient is short of breath with exertion, and conversation HEAD: Normocephalic/atraumatic. EYES: Normal reaction of pupils, equal size. Conjunctiva pink, sclera white. NOSE: Clear with pink turbinates. THROAT: No erythema or exudates. NECK: No masses, no JVD, no thyroid enlargement, no adenopathy. CHEST: No chest wall deformity. Symmetrical expansion. LUNGS: Equal air entry with bilateral crackles CVS: Regular rate and rhythm, normal S1 and S2, no gallops, no murmurs, no rubs ABDOMEN: Soft, nontender. No hepatosplenomegaly, normal bowel sounds, no guarding or rigidity. EXTREMITIES: No clubbing, no edema, no cyanosis, 2+ pulses and upper and lower extremities. MUSCULOSKELETAL: Muscle strength and tone normal. SPINE: No scoliosis or deformity SKIN: No rashes CENTRAL NERVOUS SYSTEM: Alert and oriented -3. No focal deficits, tone is normal in all 4 extremities. PSYCHIATRIC: Alert and oriented -3. Appropriate affect. Intact judgment and insight. - Labs CBC & Chem 7: 08/12/21 05:50 08/12/21 05:50 Labs: Abnormal Lab Results - Last 24 Hours (Table) 08/11/21 08/11/21 08/12/21 Range/Units 16:33 20:25 05:50 WBC 17.0 H (3.8-10.6) k/uL Neutrophils # 14.8 H (1.3-7.7) k/uL D-Dimer (<0.60) mg/L FEU Sodium (137-145) mmol/L BUN (9-20) mg/dL Glucose (74-99) mg/dL POC Glucose (mg/dL) 218 H 198 H (75-99) mg/dL AST (17-59) U/L ALT (4-49) U/L Lactate Dehydrogenase (313-618) U/L C-Reactive Protein (<1.0) mg/dL Total Protein (6.3-8.2) g/dL Albumin (3.5-5.0) g/dL 08/12/21 08/12/21 08/12/21 Range/Units 05:50 05:50 06:08 WBC (3.8-10.6) k/uL Neutrophils # (1.3-7.7) k/uL D-Dimer 3.49 H (<0.60) mg/L FEU Sodium 134 L (137-145) mmol/L BUN 23 H (9-20) mg/dL Glucose 103 H (74-99) mg/dL POC Glucose (mg/dL) 101 H (75-99) mg/dL AST 138 H (17-59) U/L ALT 261 H (4-49) U/L Lactate Dehydrogenase 1073 H (313-618) U/L C-Reactive Protein 5.9 H (<1.0) mg/dL Total Protein 5.7 L (6.3-8.2) g/dL Albumin 2.6 L (3.5-5.0) g/dL 08/12/21 Range/Units 11:45 WBC (3.8-10.6) k/uL Neutrophils # (1.3-7.7) k/uL D-Dimer (<0.60) mg/L FEU Sodium (137-145) mmol/L BUN (9-20) mg/dL Glucose (74-99) mg/dL POC Glucose (mg/dL) 154 H (75-99) mg/dL AST (17-59) U/L ALT (4-49) U/L Lactate Dehydrogenase (313-618) U/L C-Reactive Protein (<1.0) mg/dL Total Protein (6.3-8.2) g/dL Albumin (3.5-5.0) g/dL Microbiology - Last 24 Hours (Table) 08/05/21 18:31 Blood Culture - Final Blood No Growth after 144 hours Assessment and Plan Plan: #1. acute COVID 19 related pneumonia. Symptoms started approximately 7-10 days prior to presentation and the patient progressively got worse and presented to us with worsening shortness of breath and acute hypoxic arrest respiratory failure with bilateral COVID 19 related pulmonary infiltrates. The patient is not vaccinated for now. The CT angiogram was consistent with pneumonia. There was no evidence of any pulmonary embolism. Doppler of the lower extremity is been negative. #2. acute hypoxic respiratory failure secondary to above, has progressed since admission, and currently patient is on 15 L per high flow nasal cannula and her percent nonrebreather mask, with pulse ox of 92%, will be started on Baricitinib today on 08/08/2021 #3. shortness of breath secondary to above #4. troponin leak, consider an acute non-STEMI. The patient has no acute ischemic changes on EKG #5. 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 history of coronary artery disease with previous history of myocardial infarction #7. hyperlipidemia #8. hypertension #9. hyponatremia, likely hypovolemic, improved and sodium level is normalized #10. acute leukocytosis under investigation for now Plan: Patient continues on high flow oxygen at 15 L and 100% nonrebreather mask Today's lab values have been reviewed, d-dimer is improved, inflammatory markers are relatively stable, and CRPs improved We'll continue Baricitinib We'll monitor his AST and ALT values If they continue to trend up on tomorrow's labs will have to stop the Baricitinib Continue Decadron Continue prophylactic Lovenox Continue GI prophylaxis Blood sugar monitoring, and sliding scale NovoLog Continue close monitoring for worsening dyspnea and hypoxia Overall prognosis is extremely guarded In addition patient got news his who is on the vent at [facility] for COVID 19 pneumonia, took a turn for the worse I performed a history & physical examination of the patient and discussed their management with my nurse practitioner, Cheryl Palencia. I reviewed the nurse practitioner's note and agree with the documented findings and plan of care. Lung sounds are positive for basilar rales throughout the lung inman. The fin dings and the impression was discussed with the patient. I attest to the documentation by the nurse practitioner. Time with Patient: Less than 30
[2021-08-12 16:21] LABS: Glucose,Whole Blood 252 mg/dL (75-99)
[2021-08-12] MEDS: BARICITINIB 2 MG TABLET PO SCH (18:04)
[2021-08-12] MEDS: SODIUM CHLORIDE 0.9% 1,000 ML IV SCH (18:05)
[2021-08-12 20:15] LABS: Glucose,Whole Blood 152 mg/dL (75-99)
[2021-08-12] MEDS: ATORVASTATIN 40 MG TAB PO SCH (20:54)
[2021-08-12] MEDS: guaiFENesin-DM 600/30MG 1 EACH TAB.ER.12H PO PRN (20:55)
[2021-08-13] MEDS: ALBUTEROL HFA INHALER INHALATION PRN ×5 (05:15→20:09)
[2021-08-13 06:13] LABS: Glucose,Whole Blood 142 mg/dL (75-99)
[2021-08-13] MEDS: INSULIN ASPART (NovoLOG) 100 UNIT/ML VIAL SQ SCH ×4 (06:33→22:35)
[2021-08-13 07:52] LABS: Basophils % (A) 0 %; Eosinophils % (A) 0 %; HCT 44.4 % (39.0-53.0); HGB 14.3 gm/dL (13.0-17.5); Lymphocytes # (A) 0.8 k/uL (1.0-4.8); Lymphocytes % (A) 4 %; MCH 29.7 pg (25.0-35.0); MCHC 32.1 g/dL (31.0-37.0); MCV 92.6 fL (80.0-100.0); Mean Platelet Volume 7.5; Monocytes # (A) 0.6 k/uL (0-1.0); Monocytes % (A) 3 %; Neutrophils # (A) 16.7 k/uL (1.3-7.7); Neutrophils % (A) 91 %; Platelet Count 481 k/uL (150-450); WBC 18.2 k/uL (3.8-10.6)
[2021-08-13 08:08] LABS: ALT 230 U/L (4-49); AST 74 U/L (17-59); African American GFR (CKD) >90 (>60 ml/min/1.73 sqM); Albumin 2.8 g/dL (3.5-5.0); Alkaline Phosphatase 88 U/L (38-126); Anion Gap 5 mmol/L; Blood Urea Nitrogen 24 mg/dL (9-20); Calcium 8.8 mg/dL (8.4-10.2); Carbon Dioxide 29 mmol/L (22-30); Chloride 101 mmol/L (98-107); Glucose 147 mg/dL (74-99); Non-African American GFR(CKD) 87 (>60 ml/min/1.73 sqM); Potassium 4.9 mmol/L (3.5-5.1); Sodium 135 mmol/L (137-145); Total Bilirubin 0.6 mg/dL (0.2-1.3)
[2021-08-13] MEDS: ZINC SULFATE 220 MG CAP PO SCH (09:30)
[2021-08-13] MEDS: ASPIRIN 81 MG PO SCH (09:30)
[2021-08-13] MEDS: METOPROLOL TARTRATE 50 MG TAB PO SCH ×2 (09:30→20:12)
[2021-08-13] MEDS: FAMOTIDINE 20 MG TAB PO SCH (09:30)
[2021-08-13] MEDS: CHOLECALCIFEROL 125 MCG (5000 IU) TABLET PO SCH (09:30)
[2021-08-13] MEDS: ENOXAPARIN 40 MG/0.4 ML SYRINGE SQ SCH ×2 (09:31→20:12)
[2021-08-13] MEDS: ASCORBIC ACID 500 MG TAB PO SCH ×2 (09:31→20:12)
[2021-08-13] MEDS: DEXAMETHASONE SOD PHOSPHATE 10 MG/ML 1 ML VIAL IVP SCH ×2 (09:31→20:12)
[2021-08-13 12:52] LABS: Glucose,Whole Blood 321 mg/dL (75-99)
[2021-08-13] MEDS: SODIUM CHLORIDE 0.9% 1,000 ML IV SCH (13:01)
--- NOTE | 2021-08-13 16:05 | P.PN ---
Subjective Progress Note Date: 08/13/21 Principal diagnosis: 76-year-old male patient, who presented initially to [facility] and later on transferred to [facility] because of COVID 19 related pneumonia and shortness of breath. Both himself and his felt sick. Both of them are hospitalized for now. The patient started getting sick approximately over a week ago and he recalls his symptoms started approximately 10 days ago. He started having fatigue and tiredness and malaise in addition to some cough and shortness of breath. He ultimately became very weak. He presented to [facility] via EMS. His son noticed that the patient was quite ill and he called EMS and accordingly got transferred to the hospital. The patient has no history of any chronic lung disease. He is a nonsmoker for now. He has not received his vaccination for COVID 19. The patient had no nausea or vomiting no diarrhea. No altered mentation. He was quite hypoxic upon arrival and the patient is currently on 7 L of oxygen by nasal cannula to build a pulse ox of around 85-86%. The patient had a white cell count of 21.2, hemoglobin 14.5, his sodium was 128,. Troponin elevation of 0.4-3 and later on down to 0.287, his d-dimer is at 0.7, normal renal function, resident inflammatory markers are still pending including LDH and CRP. White cell count is at 21.2 with a hemoglobin of 14.5. Chest x-ray is consistent with bilateral pulmonary infiltrates consistent with COVID 19 related pneumonia. EKG showed sinus tachycardia, occasional premature supraventricular complexes and left atrial enlargement. No evidence of any acute ischemic changes. No reported chest pain. No previous history of DVT or pulmonary embolism. 08/06/2021, seeing the patient for a follow-up. The patient is still having la bored breathing. The patient was on a high flow oxygen at 15 L and he was switched to 100% nonrebreather facemask. He feels more comfortable with a full facemask for now. He remains on Decadron. No new complaints otherwise. Focused on level was borderline elevated and the patient was given IV Rocephin as an empiric antibiotic coverage. Meanwhile, 2-D echocardiogram was done and was essentially within normal limits. He has a preserved LV function. His ejection fraction is around 55-60%. He does have mild mitral regurgitation. He has also trace tricuspid regurgitation. No significant valvular abnormalities. The patient has no other new complaints for now. He is currently on Decadron. I'm considering starting this patient on Baricitinib per protocol. He does not have clear indication for an underlying infection. He remains on anticoagulation with Lovenox 40 mg subcu for DVT prophylaxis. 08/07/2021, the patient is being seen for a follow-up. He remains on 100% on a beta facemask along with 15 L about 2 by nasal cannula. He feels better on today's evaluation. He states that he is less short of breath. Nevertheless, the patient continues to be hypoxic. The patient is also on Decadron 6 mg IV every 24 hours. There was suspicion for an underlying infection. The patient did have and the patient had a white cell count of 16.6. The white cell count was as high as 23. He is on empiric antibiotic coverage with IV Rocephin. Cultures are negative. We'll monitor the white count for now. The d-dimer today's at 2.1. His LDH level was 1121 and his CRP is 14.4. The patient's focused on her level dropped down to 0.2 from a baseline of 0.37. The Doppler of the lower extremity was negative. The CT angiogram showed no evidence of any pulmonary embolism. Echocardiogram was consistent with normal LV function. I'm still considering starting the patient on Baricitinib at a later stage once the cultures are essentially finalized. On 08/08/2021 patient seen in follow-up on selective care unit, patient is on 15 L high flow nasal cannula and her percent nonrebreather mask, and his pulse ox is 92%. He is short of breath with exertion, and conversation, but no acute distress was noted, his been get not been using the bedside commode, tolerates it fairly well. Afebrile, hemodynamically stable. Today's chest x-ray has been reviewed showing bilateral multifocal and confluent opacities greater on the left consistent with known history of COVID-19 infection with no significant change. Today's lab have been reviewed, his d-dimer is 5.7, increased from ye sterday's value, sodium is 134, and respiratory electrolytes are within normal limits, BUN is 18 creatinine 0.69. CRP is 21, his LDH has increased to 1223. Urinalysis a few days ago showed 1+ ketones, +1 protein, and many bacteria, patient was treated for possibility of urinary tract infection with Rocephin, his repeat pro calcitonin came back lower at 0.20, and urine culture showed no growth. Rocephin will be discontinued. Culture showed no growth. Lung sounds reveal diffuse bilateral crackles. Patient appears to be mildly fatigued, but no acute distress. On 08/12/2021 patient seen in follow-up on selective care, he remains on 15 L high flow nasal cannula, and 100 percent nonrebreather mask, his pulse ox is 92%, he is dyspneic with exertion, but patient has been able to get up and down to use the bedside commode, afebrile, hemodynamically he is been stable. Patient remains on Baricitinib, Decadron, prophylactic anticoagulation in the form of Lovenox. His last chest x-ray from 08/10/2021 showed no interval change in the scattered lung airspace opacities. His been reviewed, his platelet count 17, hemoglobin is 14.3, d-dimer is improved and is down to 3.49, sodium is 134, the rest of electrolytes were within normal limits, B1 is 23, creatinine is 0.71, his LDH is slightly increased from his most recent value, and is up to 1073, his CRP is improved and is down to 5.9. CT angiogram of the chest showed no evidence of pulmonary embolism, and lower extremity Dopplers were negative for DVT. Patient has been compliant with repositioning self in bed. Today he is feeling depressed, he is teary-eyed, his is hospitalized at [facility], with COVID-19 pneumonia, she is critically ill, she is intubated, sedated and paralyzed, and apparently she took a turn for the worse. On 08/13/2021 patient is seen in follow-up on selective care unit. He remains on 15 L in nonrebreather Mask, he is breathing comfortably, he states his cough is improved compared to yesterday, overnight he did have some increased difficulty breathing and did require BiPAP support, he is back on high flow oxygen and nonrebreather mask, breathing comfortably. Continues on Baricitinib, continues on prophylactic Lovenox 40 mg twice daily, Decadron 6 mg twice daily and COVID-19 vitamins. Today's labs have been reviewed, his white blood cell count is relatively stable with slight increased at 18.2, hemoglobin is 14.3, last d-dimer was yesterday at 3.49, sodium is 135, the rest of the electrolytes and renal profile were unremarkable, his CRP has improved since admission however his LDH has remained relatively stable in the 900-1000 range. No new chest x-ray today, his last chest x-ray from 08/10/2021 showed moderate sized focal areas of dense lung opacification unchanged in appearance. Objective - Vital Signs Vital signs: Vital Signs Temp 98.1 F 08/13/21 12:00 Pulse 66 08/13/21 04:00 Resp 24 08/13/21 14:00 BP 124/78 08/13/21 12:00 Pulse Ox 90 L 08/13/21 12:00 Intake & Output 08/12/21 08/13/21 08/13/21 18:59 06:59 18:59 Intake Total 480 150 400 Output Total 300 Balance 180 150 400 Weight 84.5 kg Intake: Intake, IV Titration 150 Amount Sodium Chloride 0.9% 1, 150 000 ml @ 50 mls/hr IV . Q20H [facility] Rx#:[id number] Oral 480 400 Output: Urine 300 Other: Voiding Method Bedside Commode Bedside Commode Bedside Commode # Voids 3 2 # Bowel Movements 1 3 - Exam GENERAL EXAM: Alert, very pleasant, 76-year-old white male, currently on 15 L per high flow nasal cannula and on her percent nonrebreather mask, with pulse ox of 92-95%, comfortable in no apparent distress. Patient is short of breath with exertion, and conversation HEAD: Normocephalic/atraumatic. EYES: Normal reaction of pupils, equal size. Conjunctiva pink, sclera white. NOSE: Clear with pink turbinates. THROAT: No erythema or exudates. NECK: No masses, no JVD, no thyroid enlargement, no adenopathy. CHEST: No chest wall deformity. Symmetrical expansion. LUNGS: Equal air entry with bilateral crackles CVS: Regular rate and rhythm, normal S1 and S2, no gallops, no murmurs, no rubs ABDOMEN: Soft, nontender. No hepatosplenomegaly, normal bowel sounds, no guarding or rigidity. EXTREMITIES: No clubbing, no edema, no cyanosis, 2+ pulses and upper and lower extremities. MUSCULOSKELETAL: Muscle strength and tone normal. SPINE: No scoliosis or deformity SKIN: No rashes CENTRAL NERVOUS SYSTEM: Alert and oriented -3. No focal deficits, tone is normal in all 4 extremities. PSYCHIATRIC: Alert and oriented -3. Appropriate affect. Intact judgment and insight. - Labs CBC & Chem 7: 08/13/21 07:25 08/13/21 07:25 Labs: Abnormal Lab Results - Last 24 Hours (Table) 08/12/21 08/12/21 08/13/21 Range/Units 16:20 20:14 06:12 WBC (3.8-10.6) k/uL Plt Count (150-450) k/uL Neutrophils # (1.3-7.7) k/uL Lymphocytes # (1.0-4.8) k/uL Sodium (137-145) mmol/L BUN (9-20) mg/dL Glucose (74-99) mg/dL POC Glucose (mg/dL) 252 H 152 H 142 H (75-99) mg/dL AST (17-59) U/L ALT (4-49) U/L Total Protein (6.3-8.2) g/dL Albumin (3.5-5.0) g/dL 08/13/21 08/13/21 08/13/21 Range/Units 07:25 07:25 12:51 WBC 18.2 H (3.8-10.6) k/uL Plt Count 481 H (150-450) k/uL Neutrophils # 16.7 H (1.3-7.7) k/uL Lymphocytes # 0.8 L (1.0-4.8) k/uL Sodium 135 L (137-145) mmol/L BUN 24 H (9-20) mg/dL Glucose 147 H (74-99) mg/dL POC Glucose (mg/dL) 321 H (75-99) mg/dL AST 74 H (17-59) U/L ALT 230 H (4-49) U/L Total Protein 6.0 L (6.3-8.2) g/dL Albumin 2.8 L (3.5-5.0) g/dL Assessment and Plan Plan: #1. acute COVID 19 related pneumonia. Symptoms started approximately 7-10 days prior to presentation and the patient progressively got worse and presented to us with worsening shortness of breath and acute hypoxic arrest respiratory failure with bilateral COVID 19 related pulmonary infiltrates. The patient is not vaccinated for now. The CT angiogram was consistent with pneumonia. There was no evidence of any pulmonary embolism. Doppler of the lower extremity is been negative. #2. acute hypoxic respiratory failure secondary to above, has progressed since admission, and currently patient is on 15 L per high flow nasal cannula and her percent nonrebreather mask, with pulse ox of 92%, will be started on Baricitinib today on 08/08/2021 #3. shortness of breath secondary to above #4. troponin leak, consider an acute non-STEMI. The patient has no acute ischemic changes on EKG #5. 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 history of coronary artery disease with previous history of myocardial infarction #7. hyperlipidemia #8. hypertension #9. hyponatremia, likely hypovolemic, improved and sodium level is normalized #10. acute leukocytosis under investigation for now Plan: Patient looks fairly comfortable, although still requiring high flow oxygen Overnight she did have episode of worsening shortness of breath required BiPAP support Recovered, and is back on high flow oxygen nonrebreather mask Vital signs are stable We'll continue Baricitinib Continue Decadron at 6 mg twice daily Continue prophylactic Lovenox at 40 mg twice daily Continue GI prophylaxis Blood sugar monitoring, and sliding scale NovoLog Overall prognosis is extremely guarded May place on BiPAP support for respiratory fatigue as needed I performed a history & physical examination of the patient and discussed their management with my nurse practitioner, Cheryl Palencia. I reviewed the nurse practitioner's note and agree with the documented findings and plan of care. Lung sounds are positive for basilar rales throughout the lung inman. The findings and the impression was discussed with the patient. I attest to the documentation by the nurse practitioner. Time with Patient: Less than 30
[2021-08-13 17:29] LABS: Glucose,Whole Blood 148 mg/dL (75-99)
[2021-08-13] MEDS: BARICITINIB 2 MG TABLET PO SCH (17:44)
--- NOTE | 2021-08-13 19:27 | P.PN ---
Subjective Progress Note Date: 08/13/21 Principal diagnosis: COVID-19 viral pneumonia Acute hypoxic respiratory failure Acute non-ST elevation NV 76-year-old pleasant male came in with complaints of shortness of breath and cough and patient is on 6 L of oxygen and found to have Covid 19 pneumonia chest x-ray is consistent with Covid 19. Patient is bit hyponatremic as well. Patient does have history of diabetes mellitus. Patient vaccinated for Covid 19 patient symptoms has been going on for about a week patient's d-dimer is around 0.7. Patient is presently on Lovenox for DVT prophylaxis. Patient denied any history of COPD or asthma patient last smoked about 52 years ago still has s ignificant wheezing on exam. And has a significant generalized weakness and fatigue 08/13/2021 Patient is seen and evaluated in room at bedside; report some improvement in br eathing and improved, Patient remains on O2 at 15 L via nonrebreather mask and high flow nasal cannu la; did have some increased difficulty breathing at night and required BiPAP Labs reviewed reveals white blood cell count is relatively stable with slight increased at 18.2, hemoglobin is 14.3, last d-dimer was yesterday at 3.49, sodium is 135, the rest of the electrolytes and renal profile were unremarkable, his CRP has improved since admission however his LDH has remained relatively stable in the 900-1000 range. No new chest x-ray today, his last chest x-ray from 08/10/2021 showed moderate sized focal areas of dense lung opacification unchanged in appearance. Continues on Baricitinib, continues on prophylactic Lovenox 40 mg twice daily, Decadron 6 mg twice daily and COVID-19 vitamins cocktail. Objective - Vital Signs Vital signs: Vital Signs Temp 98.2 F 08/13/21 08:00 Pulse 66 08/13/21 04:00 Resp 18 08/13/21 08:00 BP 123/73 08/13/21 08:00 Pulse Ox 94 L 08/13/21 08:00 Intake & Output 08/12/21 08/13/21 08/13/21 18:59 06:59 18:59 Intake Total 480 150 400 Output Total 300 Balance 180 150 400 Weight 84.5 kg Intake: Intake, IV Titration 150 Amount Sodium Chloride 0.9% 1, 150 000 ml @ 50 mls/hr IV . [facility] Rx#:[id number] Oral 480 400 Output: Urine 300 Other: Voiding Method Bedside Commode Bedside Commode Bedside Commode # Voids 3 # Bowel Movements 1 - Exam GENERAL: The patient is alert and oriented x3, not in any acute distress. Morbidly obese. HEENT: Pupils are round and equally reacting to light. EOMI. No scleral icterus. No conjunctival pallor. Normocephalic, atraumatic. No pharyngeal erythema. No thyromegaly. CARDIOVASCULAR: S1 and S2 present. No murmurs, rubs, or gallops. PULMONARY: Bibasilar Rales, improving ABDOMEN: Soft, nontender, nondistended, normoactive bowel sounds. No palpable organomegaly. MUSCULOSKELETAL: No joint swelling or deformity. EXTREMITIES: No cyanosis, clubbing, +1 Pitting edema right ankle. NEUROLOGICAL: Gross neurological examination did not reveal any new focal deficits. SKIN: No rashes. - Labs CBC & Chem 7: 08/13/21 07:25 08/13/21 07:25 Labs: Abnormal Lab Results - Last 24 Hours (Table) 08/12/21 08/12/21 08/13/21 Range/Units 16:20 20:14 06:12 WBC (3.8-10.6) k/uL Plt Count (150-450) k/uL Neutrophils # (1.3-7.7) k/uL Lymphocytes # (1.0-4.8) k/uL Sodium (137-145) mmol/L BUN (9-20) mg/dL Glucose (74-99) mg/dL POC Glucose (mg/dL) 252 H 152 H 142 H (75-99) mg/dL AST (17-59) U/L ALT (4-49) U/L Total Protein (6.3-8.2) g/dL Albumin (3.5-5.0) g/dL 08/13/21 08/13/21 Range/Units 07:25 07:25 WBC 18.2 H (3.8-10.6) k/uL Plt Count 481 H (150-450) k/uL Neutrophils # 16.7 H (1.3-7.7) k/uL Lymphocytes # 0.8 L (1.0-4.8) k/uL Sodium 135 L (137-145) mmol/L BUN 24 H (9-20) mg/dL Glucose 147 H (74-99) mg/dL POC Glucose (mg/dL) (75-99) mg/dL AST 74 H (17-59) U/L ALT 230 H (4-49) U/L Total Protein 6.0 L (6.3-8.2) g/dL Albumin 2.8 L (3.5-5.0) g/dL Assessment and Plan Assessment: Assessment and plan -Acute hypoxic respiratory failure secondary to Covid 19 pneumonia, symptoms began about 7 to 10 days prior to admission, he is on 15L NRB and 15L HF NC. 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 -Obesity -Hyperlipidemia -History of NV -Coronary artery disease status post cardiac catheterization DVT prophylaxis: Lovenox GI Prophylaxis: Pepcid Plan IV fluids Hold lisinopril Continue Decadron, covid vitamins, Baricitinib Continue all other supportive care Repeat labs tomorrow Prognosis is guarded for this patient
[2021-08-13] MEDS: ATORVASTATIN 40 MG TAB PO SCH (20:12)
[2021-08-13 20:30] LABS: Glucose,Whole Blood 269 mg/dL (75-99)
[2021-08-14 06:16] LABS: Glucose,Whole Blood 129 mg/dL (75-99)
[2021-08-14] MEDS: INSULIN ASPART (NovoLOG) 100 UNIT/ML VIAL SQ SCH ×4 (08:44→21:02)
[2021-08-14] MEDS: ALBUTEROL HFA INHALER INHALATION PRN ×3 (08:46→19:56)
[2021-08-14] MEDS: ASCORBIC ACID 500 MG TAB PO SCH ×2 (08:53→21:01)
[2021-08-14] MEDS: FAMOTIDINE 20 MG TAB PO SCH (08:53)
[2021-08-14] MEDS: DEXAMETHASONE SOD PHOSPHATE 10 MG/ML 1 ML VIAL IVP SCH ×2 (08:54→21:01)
[2021-08-14] MEDS: CHOLECALCIFEROL 125 MCG (5000 IU) TABLET PO SCH (08:54)
[2021-08-14] MEDS: ZINC SULFATE 220 MG CAP PO SCH (08:54)
[2021-08-14] MEDS: ENOXAPARIN 40 MG/0.4 ML SYRINGE SQ SCH ×2 (08:54→21:02)
[2021-08-14] MEDS: METOPROLOL TARTRATE 50 MG TAB PO SCH ×2 (08:54→21:02)
[2021-08-14] MEDS: ASPIRIN 81 MG PO SCH (08:54)
[2021-08-14 09:03] LABS: Basophils % (A) 0 %; Eosinophils % (A) 0 %; HCT 49.4 % (39.0-53.0); HGB 15.7 gm/dL (13.0-17.5); Lymphocytes # (A) 1.2 k/uL (1.0-4.8); Lymphocytes % (A) 4 %; MCHC 31.7 g/dL (31.0-37.0); MCV 94.5 fL (80.0-100.0); Mean Platelet Volume 7.5; Monocytes % (A) 4 %; Neutrophils # (A) 24.8 k/uL (1.3-7.7); Neutrophils % (A) 91 %; Platelet Count 593 k/uL (150-450); RBC 5.23 m/uL (4.30-5.90); RDW 13.6 % (11.5-15.5); WBC 27.2 k/uL (3.8-10.6)
[2021-08-14 09:19] LABS: ALT 239 U/L (4-49); AST 86 U/L (17-59); African American GFR (CKD) >90 (>60 ml/min/1.73 sqM); Albumin 3.2 g/dL (3.5-5.0); Alkaline Phosphatase 98 U/L (38-126); Anion Gap 9 mmol/L; Blood Urea Nitrogen 26 mg/dL (9-20); Calcium 9.6 mg/dL (8.4-10.2); Carbon Dioxide 28 mmol/L (22-30); Chloride 99 mmol/L (98-107); Glucose 130 mg/dL (74-99); Non-African American GFR(CKD) 83 (>60 ml/min/1.73 sqM); Sodium 136 mmol/L (137-145); Total Bilirubin 0.7 mg/dL (0.2-1.3); Total Protein 6.6 g/dL (6.3-8.2)
[2021-08-14 09:25] LABS: Potassium 6.1 mmol/L (3.5-5.1)
[2021-08-14] MEDS ORDERED: DEXTROSE 50% SYRINGE 50 ML IVP STA (09:37)
[2021-08-14] MEDS ORDERED: INSULIN REGULAR 100 UNIT/ML VIAL (IV) IV ONE (09:37)
[2021-08-14] MEDS: SODIUM CHLORIDE 0.9% 1,000 ML IV SCH (10:15)
[2021-08-14 11:31] LABS: Glucose,Whole Blood 281 mg/dL (75-99)
[2021-08-14] MEDS: BARICITINIB 2 MG TABLET PO SCH (15:24)
[2021-08-14] MEDS ORDERED: SODIUM POLYSTYRENE SULFONATE 15 GM/60 ML BOTTLE PO STA (15:40)
[2021-08-14] MEDS: guaiFENesin-DM 600/30MG 1 EACH TAB.ER.12H PO PRN (15:44)
[2021-08-14] MEDS: ALPRAZolam 0.25 MG TAB PO PRN (15:44)
[2021-08-14] MEDS ORDERED: FUROSEMIDE 10 MG/ML 4 ML VIAL IV STA (16:13)
[2021-08-14 16:32] LABS: Glucose,Whole Blood 138 mg/dL (75-99)
--- NOTE | 2021-08-14 16:51 | P.PN ---
Subjective Progress Note Date: 08/14/21 Principal diagnosis: COVID-19 viral pneumonia Acute hypoxic respiratory failure Acute non-ST elevation [place] 76-year-old pleasant male came in with complaints of shortness of breath and cough and patient is on 6 L of oxygen and found to have Covid 19 pneumonia chest x-ray is consistent with Covid 19. Patient is bit hyponatremic as well. Patient does have history of diabetes mellitus. Patient vaccinated for Covid 19 patient symptoms has been going on for about a week patient's d-dimer is around 0.7. Patient is presently on Lovenox for DVT prophylaxis. Patient denied any history of COPD or asthma patient last smoked about 52 years ago still has s ignificant wheezing on exam. And has a significant generalized weakness and fatigue 08/13/2021 Patient is seen and evaluated in room at bedside; report some improvement in br eathing and improved, Patient remains on O2 at 15 L via nonrebreather mask and high flow nasal cannu la; did have some increased difficulty breathing at night and required BiPAP Labs reviewed reveals white blood cell count is relatively stable with slight increased at 18.2, hemoglobin is 14.3, last d-dimer was yesterday at 3.49, sodium is 135, the rest of the electrolytes and renal profile were unremarkable, his CRP has improved since admission however his LDH has remained relatively stable in the 900-1000 range. No new chest x-ray today, his last chest x-ray from 08/10/2021 showed moderate sized focal areas of dense lung opacification unchanged in appearance. Continues on Baricitinib, continues on prophylactic Lovenox 40 mg twice daily, Decadron 6 mg twice daily and COVID-19 vitamins cocktail. 08/14/2021 Patient is seen and evaluated; oxygen requirement increased since yesterday and currently on O2 per high flow nasal cannula at 15 L along with 15% Ventimask Vital sign review shows temperature of 98, pulse 66, respiration 20 and blood pressure 144/84 O2 saturation ranging between 84-89% Lab review shows markedly elevated potassium of 6.5, and WBC of 27; patient is currently on 6 mg of Decadron every 12 hours which could be resulting in elevated WBC; patient did receive hyperkalemia treatment cocktail; stat repeat potassium level is ordered and pending We will continue to monitor inflammatory markers and pro-calcitonin and CBC Objective - Vital Signs Vital signs: Vital Signs Temp 98.0 F 12/09/21 14:59 Pulse 66 08/14/21 14:59 Resp 20 08/14/21 14:59 BP 144/84 08/14/21 14:59 Pulse Ox 96 08/14/21 15:51 Intake & Output 08/13/21 08/14/21 08/14/21 18:59 06:59 18:59 Intake Total 400 960 Balance 400 960 Weight 69.5 kg Intake: Oral 400 960 Other: Voiding Method Bedside Commode Bedside Commode Bedside Commode # Voids 2 2 3 # Bowel Movements 3 - Exam GENERAL: The patient is alert and oriented x3, not in any acute distress. Morbidly obese. HEENT: Pupils are round and equally reacting to light. EOMI. No scleral icterus. No conjunctival pallor. Normocephalic, atraumatic. No pharyngeal erythema. No thyromegaly. CARDIOVASCULAR: S1 and S2 present. No murmurs, rubs, or gallops. PULMONARY: Bibasilar Rales, improving ABDOMEN: Soft, nontender, nondistended, normoactive bowel sounds. No palpable organomegaly. MUSCULOSKELETAL: No joint swelling or deformity. EXTREMITIES: No cyanosis, clubbing, +1 Pitting edema right ankle. NEUROLOGICAL: Gross neurological examination did not reveal any new focal deficits. SKIN: No rashes. - Labs CBC & Chem 7: 08/14/21 07:55 08/14/21 12:33 Labs: Abnormal Lab Results - Last 24 Hours (Table) 08/13/21 08/13/21 08/14/21 Range/Units 17:27 20:29 06:15 WBC (3.8-10.6) k/uL Plt Count (150-450) k/uL Neutrophils # (1.3-7.7) k/uL Sodium (137-145) mmol/L Potassium (3.5-5.1) mmol/L BUN (9-20) mg/dL Glucose (74-99) mg/dL POC Glucose (mg/dL) 148 H 269 H 129 H (75-99) mg/dL AST (17-59) U/L ALT (4-49) U/L Albumin (3.5-5.0) g/dL 08/14/21 08/14/21 08/14/21 Range/Units 07:55 07:55 11:26 WBC 27.2 H (3.8-10.6) k/uL Plt Count 593 H (150-450) k/uL Neutrophils # 24.8 H (1.3-7.7) k/uL Sodium 136 L (137-145) mmol/L Potassium 6.1 H* (3.5-5.1) mmol/L BUN 26 H (9-20) mg/dL Glucose 130 H (74-99) mg/dL POC Glucose (mg/dL) 281 H (75-99) mg/dL AST 86 H (17-59) U/L ALT 239 H (4-49) U/L Albumin 3.2 L (3.5-5.0) g/dL 08/14/21 08/14/21 Range/Units 12:33 16:26 WBC (3.8-10.6) k/uL Plt Count (150-450) k/uL Neutrophils # (1.3-7.7) k/uL Sodium (137-145) mmol/L Potassium 5.7 H (3.5-5.1) mmol/L BUN (9-20) mg/dL Glucose (74-99) mg/dL POC Glucose (mg/dL) 138 H (75-99) mg/dL AST (17-59) U/L ALT (4-49) U/L Albumin (3.5-5.0) g/dL Assessment and Plan Assessment: Assessment and plan -Acute hypoxic respiratory failure secondary to Covid 19 pneumonia, symptoms began about 7 to 10 days prior to admission, he is on 15L NRB and 15L HF NC. 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 -Obesity -Hyperlipidemia -History of [place] -Coronary artery disease status post cardiac catheterization DVT prophylaxis: Lovenox GI Prophylaxis: Pepcid Plan IV fluids Hold lisinopril Continue Decadron, covid vitamins, Baricitinib Continue all other supportive care Repeat labs tomorrow Prognosis is guarded for this patient
--- NOTE | 2021-08-14 17:58 | P.PN ---
Subjective Progress Note Date: 08/14/21 Principal diagnosis: Acute hypoxic respiratory failure secondary to COVID-19 pneumonia 76-year-old male patient, who presented initially to [facility] and later on transferred to [facility] because of COVID 19 related pneumonia and shortness of breath. Both himself and his felt sick. Both of them are hospitalized for now. The patient started getting sick approximately over a week ago and he recalls his symptoms started approximately 10 days ago. He started having fatigue and tiredness and malaise in addition to some cough and shortness of breath. He ultimately became very weak. He presented to [facility] via EMS. His son noticed that the patient was quite ill and he called EMS and accordingly got transferred to the hospital. The patient has no history of any chronic lung disease. He is a nonsmoker for now. He has not received his vaccination for COVID 19. The patient had no nausea or vomiting no diarrhea. No altered mentation. He was quite hypoxic upon arrival and the patient is currently on 7 L of oxygen by nasal cannula to build a pulse ox of around 85-86%. The patient had a white cell count of 21.2, hemoglobin 14.5, his sodium was 128,. Troponin elevation of 0.4-3 and later on down to 0.287, his d-dimer is at 0.7, normal renal function, resident inflammatory markers are still pending including LDH and CRP. White cell count is at 21.2 with a hemoglobin of 14.5. Chest x-ray is consistent with bilateral pulmonary infiltrates consistent with COVID 19 related pneumonia. EKG showed sinus tachycardia, occasional premature supraventricular complexes and left atrial enlargement. No evidence of any acute ischemic changes. No reported chest pain. No previous history of DVT or pulmonary embolism. 08/06/2021, seeing the patient for a follow-up. The patient is still having labored breathing. The patient was on a high flow oxygen at 15 L and he was switched to 100% nonrebreather facemask. He feels more comfortable with a full facemask for now. He remains on Decadron. No new complaints otherwise. Foc used on level was borderline elevated and the patient was given IV Rocephin as an empiric antibiotic coverage. Meanwhile, 2-D echocardiogram was done and was essentially within normal limits. He has a preserved LV function. His ejection fraction is around 55-60%. He does have mild mitral regurgitation. He has also trace tricuspid regurgitation. No significant valvular abnormalities. The pat ient has no other new complaints for now. He is currently on Decadron. I'm considering starting this patient on Baricitinib per protocol. He does not have clear indication for an underlying infection. He remains on anticoagulation with Lovenox 40 mg subcu for DVT prophylaxis. 08/07/2021, the patient is being seen for a follow-up. He remains on 100% on a beta facemask along with 15 L about 2 by nasal cannula. He feels better on today's evaluation. He states that he is less short of breath. Nevertheless, the patient continues to be hypoxic. The patient is also on Decadron 6 mg IV every 24 hours. There was suspicion for an underlying infection. The patient did have and the patient had a white cell count of 16.6. The white cell count was as high as 23. He is on empiric antibiotic coverage with IV Rocephin. Cultures are negative. We'll monitor the white count for now. The d-dimer today's at 2.1. His LDH level was 1121 and his CRP is 14.4. The patient's focused on her level dropped down to 0.2 from a baseline of 0.37. The Doppler of the lower extremity was negative. The CT angiogram showed no evidence of any pulmonary embolism. Echocardiogram was consistent with normal LV function. I'm still considering starting the patient on Baricitinib at a later stage once the cultures are essentially finalized. On 08/08/2021 patient seen in follow-up on selective care unit, patient is on 15 L high flow nasal cannula and her percent nonrebreather mask, and his pulse ox i s 92%. He is short of breath with exertion, and conversation, but no acute distress was noted, his been get not been using the bedside commode, tolerates it fairly well. Afebrile, hemodynamically stable. Today's chest x-ray has been reviewed showing bilateral multifocal and confluent opacities greater on the left consistent with known history of COVID-19 infection with no significant change. Today's lab have been reviewed, his d-dimer is 5.7, increased from yesterday's value, sodium is 134, and respiratory electrolytes are within normal limits, BUN is 18 creatinine 0.69. CRP is 21, his LDH has increased to 1223. Urinalysis a few days ago showed 1+ ketones, +1 protein, and many bacteria, patient was treated for possibility of urinary tract infection with Rocephin, his repeat pro calcitonin came back lower at 0.20, and urine culture showed no growth. Rocephin will be discontinued. Culture showed no growth. Lung sounds reveal diffuse bilateral crackles. Patient appears to be mildly fatigued, but no acute distress. 08/09/2021, the patient is being seen for a follow-up. He was on a combination of 100% nonrebreather facemask and 15 L nasal cannula. I took him off the 100% nonrebreather while having foot and the patient was able to maintain a saturation as low as 90%. I would consider this to be an improvement. Otherwise the patient is doing well. No specific complaints. Is a good appetite. He has no new complaints. He gets short of breath with speech and minimal amount of activity. His electrodes are all within normal limits. His LFTs are slightly elevated and the patient has a component of mild transaminitis. The patient is also noted to have a white cell count of 18.4 with a hemoglobin of 14.3. No other new complaints otherwise for now. Is afebrile. His hemodynamics are stable. He remains on a combination of Decadron and Baricitinib. 08/10/2021, the patient is doing well. No specific complaints. Remains on a on the percent nonrebreather facemask in addition to 15 L of oxygen by nasal cannula. Condition is unchanged compared to yesterday and the patient continues to desaturate whenever he takes off his nonrebreather fullface mask. For instance, while having lunch, pulse ox dropped down to the 70s while off the mask. As such, he needs both sources of oxygen. He remains on Decadron. He remains on Baricitinib per protocol. He is also on Lovenox 40 mg subcu for prophylaxis. On his blood work, the patient's LDH level is down to 951, CRP is down to 13, normal coagulation profile, white cell count is 16.1 with a hemoglobin of 13.6. Platelet count is normal at 503. No fever. No chills. No sweats. No other complaints otherwise for now. Reevaluated today on 08/11/2021, patient remains on high flow oxygen. He is actually on 15 L high flow, nonrebreather mask, patient is surprisingly doing well, does not seem to be in any distress, chest x-ray is quite abnormal showing significant bilateral infiltrates. Patient remains on Decadron, remains on Lovenox 40 mg subcu daily, and he remains on baricitinib. WBC count is trending down down to 15.7 hemoglobin 14.4 electrolytes are normal renal profile is normal liver enzymes are slightly elevated with AST of 85 AST of 186. No calcitonin on admission was 0.20. Chest x-ray from yesterday showed no change compared to admission x-ray, continues to have scattered opacities in both lungs. On 08/12/2021 patient seen in follow-up on selective care, he remains on 15 L high flow nasal cannula, and 100 percent nonrebreather mask, his pulse ox is 92%, he is dyspneic with exertion, but patient has been able to get up and down to use the bedside commode, afebrile, hemodynamically he is been stable. Patient remains on Baricitinib, Decadron, prophylactic anticoagulation in the form of Lovenox. His last chest x-ray from 08/10/2021 showed no interval change in the scattered lung airspace opacities. His been reviewed, his platelet count 17, hemoglobin is 14.3, d-dimer is improved and is down to 3.49, sodium is 134, the rest of electrolytes were within normal limits, B1 is 23, creatinine is 0.71, his LDH is slightly increased from his most recent value, and is up to 107 3, his CRP is improved and is down to 5.9. CT angiogram of the chest showed no evidence of pulmonary embolism, and lower extremity Dopplers were negative for DVT. Patient has been compliant with repositioning self in bed. Today he is feeling depressed, he is teary-eyed, his is hospitalized at [facility], with COVID-19 pneumonia, she is critically ill, she is intubated, sedated and paralyzed, and apparently she took a turn for the worse. On 08/13/2021 patient is seen in follow-up on selective care unit. He remains on 15 L in nonrebreather Mask, he is breathing comfortably, he states his cough is improved compared to yesterday, overnight he did have some increased difficulty breathing and did require BiPAP support, he is back on high flow oxygen and nonrebreather mask, breathing comfortably. Continues on Baricitinib, continues on prophylactic Lovenox 40 mg twice daily, Decadron 6 mg twice daily and COVID-19 vitamins. Today's labs have been reviewed, his white blood cell count is relatively stable with slight increased at 18.2, hemoglobin is 14.3, last d-dimer was yesterday at 3.49, sodium is 135, the rest of the electrolytes and renal profile were unremarkable, his CRP has improved since admission however his LDH has remained relatively stable in the 900-1000 range. No new chest x-ray today, his last chest x-ray from 08/10/2021 showed moderate sized focal areas of dense lung opacification unchanged in appearance. Reevaluated today on 08/14/2021, patient remains on high flow oxygen, he is a nonrebreather mask, 15 L high flow cannula. His overall pulmonary status is about the same, he is not getting better and is not getting any worse. Patient is intermittently on BiPAP, but now he is on a nonrebreather mask. And he seems to be very comfortable. Remains on the COVID-19 cocktail, remains on Decadron twice a day Lovenox 40 mg twice a day he is also on baricitinib. Patient does have leukocytosis with WBC count of 27.2, he has a high potassium today of 5.7, apparently was 6.1 earlier, and I'm recommending a dose of Lasix 40 mg IV push, follow-up chest x-ray, I would also order a pro-calcitonin, make sure that the patient does not have underlying bacterial infection and if that is the case may have to stop his baricitinib, I will go ahead and put it on hold for now. Objective - Vital Signs Vital signs: Vital Signs Temp 98.0 F 08/14/21 14:59 Pulse 66 08/14/21 14:59 Resp 20 08/14/21 14:59 BP 144/84 08/14/21 14:59 Pulse Ox 96 08/14/21 15:51 Intake & Output 08/13/21 08/14/21 08/14/21 18:59 06:59 18:59 Intake Total 400 960 Balance 400 960 Weight 69.5 kg Intake: Oral 400 960 Other: Voiding Method Bedside Commode Bedside Commode Bedside Commode # Voids 2 2 1 # Bowel Movements 3 1 - Exam GENERAL: Revealed a 76-year-old white male, on the commode, on nonrebreather mask, does not seem to be in distress. Head: Atraumatic, normocephalic. HEENT: PERRLA, EOMI, nonicteric, no neck masses, no JVD. CARDIOVASCULAR: normal S1 and S2, no S3 gallop. PULMONARY: Significant crackles and rhonchi noted bilaterally at the bases. No wheezing. MUSCULOSKELETAno limitation in range of motion no deformities. EXTREMITIES: No cyanosis, clubbing, or pedal edema. NEUROLOGICAL: Gross neurological examination did not reveal any new focal deficits. The patient has some chronic weakness on the left than the patient walks well with the help of a cane. No focal neurological deficit or any new onset neurological deficits. This is related to previous stroke. Examination of the skin revealed no evidence of significant rashes. - Labs CBC & Chem 7: 08/14/21 07:55 08/14/21 12:33 Labs: Abnormal Lab Results - Last 24 Hours (Table) 08/13/21 08/14/21 08/14/21 Range/Units 20:29 06:15 07:55 WBC 27.2 H (3.8-10.6) k/uL Plt Count 593 H (150-450) k/uL Neutrophils # 24.8 H (1.3-7.7) k/uL Sodium (137-145) mmol/L Potassium (3.5-5.1) mmol/L BUN (9-20) mg/dL Glucose (74-99) mg/dL POC Glucose (mg/dL) 269 H 129 H (75-99) mg/dL AST (17-59) U/L ALT (4-49) U/L Albumin (3.5-5.0) g/dL 08/14/21 08/14/21 08/14/21 Range/Units 07:55 11:26 12:33 WBC (3.8-10.6) k/uL Plt Count (150-450) k/uL Neutrophils # (1.3-7.7) k/uL Sodium 136 L (137-145) mmol/L Potassium 6.1 H* 5.7 H (3.5-5.1) mmol/L BUN 26 H (9-20) mg/dL Glucose 130 H (74-99) mg/dL POC Glucose (mg/dL) 281 H (75-99) mg/dL AST 86 H (17-59) U/L ALT 239 H (4-49) U/L Albumin 3.2 L (3.5-5.0) g/dL 08/14/21 Range/Units 16:26 WBC (3.8-10.6) k/uL Plt Count (150-450) k/uL Neutrophils # (1.3-7.7) k/uL Sodium (137-145) mmol/L Potassium (3.5-5.1) mmol/L BUN (9-20) mg/dL Glucose (74-99) mg/dL POC Glucose (mg/dL) 138 H (75-99) mg/dL AST (17-59) U/L ALT (4-49) U/L Albumin (3.5-5.0) g/dL Assessment and Plan Assessment: Impression: Acute COVID-19 pneumonia with acute hypoxic respiratory failure, CT angiogram showed no evidence of pulmonary embolism. Patient is on multiple medications for COVID-19 infection including baricitinib History of CVA History of dyslipidemia Coronary artery disease and previous myocardial infarction Benign essential hypertension Hypovolemic hyponatremia Troponin leak Hyperkalemia, will recommend repeat potassium in a.m., diuretics, follow-up chest x-ray in a.m., Leukocytosis, etiology is not clear, but it is enough to be concerned about the possibility of bacterial infection and I am holding his baricitinib Recommendation: 40 mg of Lasix IV push given. Continue nonrebreather mask and titrate oxygen accordingly Continue COVID-19 cocktail including Decadron, hold Baricitinib Continue to monitor inflammatory markers Continue Lovenox, 40 mg subcu twice a day. Patient is not ready for any discharge planning unless we have his FiO2 titrated down to 5 L nasal cannula or less Doses remains definitely guarded. Time with Patient: Less than 30
[2021-08-14 20:24] LABS: Glucose,Whole Blood 188 mg/dL (75-99)
[2021-08-14] MEDS: ATORVASTATIN 40 MG TAB PO SCH (21:01)
[2021-08-15 06:13] LABS: Glucose,Whole Blood 138 mg/dL (75-99)
[2021-08-15] MEDS: INSULIN ASPART (NovoLOG) 100 UNIT/ML VIAL SQ SCH ×4 (06:53→22:24)
[2021-08-15] MEDS: SODIUM CHLORIDE 0.9% 1,000 ML IV SCH ×2 (06:53→22:25)
--- NOTE | 2021-08-15 07:53 | XR ---
EXAMINATION TYPE: XR chest 1V portable DATE OF EXAM: 08/15/2021 COMPARISON: 08/10/2021 INDICATION: COVID TECHNIQUE: Single frontal view of the chest is obtained. FINDINGS: The heart size is enlarged. The pulmonary vasculature is indistinct. Diffuse scattered infiltrates are present bilaterally. Findings are similar to comparison. IMPRESSION: 1. Stable diffuse infiltrates can be compatible with atypical pneumonia. Continued follow-up is recom mended.
[2021-08-15] MEDS: CHOLECALCIFEROL 125 MCG (5000 IU) TABLET PO SCH (09:18)
[2021-08-15] MEDS: ENOXAPARIN 40 MG/0.4 ML SYRINGE SQ SCH ×2 (09:18→22:24)
[2021-08-15] MEDS: FAMOTIDINE 20 MG TAB PO SCH (09:18)
[2021-08-15] MEDS: ZINC SULFATE 220 MG CAP PO SCH (09:18)
[2021-08-15] MEDS: DEXAMETHASONE SOD PHOSPHATE 10 MG/ML 1 ML VIAL IVP SCH ×2 (09:18→22:24)
[2021-08-15] MEDS: ASCORBIC ACID 500 MG TAB PO SCH ×2 (09:18→22:24)
[2021-08-15] MEDS: ASPIRIN 81 MG PO SCH (09:18)
[2021-08-15] MEDS: METOPROLOL TARTRATE 50 MG TAB PO SCH ×2 (09:18→22:24)
[2021-08-15 09:30] LABS: Basophils % (A) 0 %; Eosinophils % (A) 0 %; HGB 15.1 gm/dL (13.0-17.5); Lymphocytes # (A) 0.9 k/uL (1.0-4.8); Lymphocytes % (A) 4 %; MCH 30.1 pg (25.0-35.0); MCHC 32.2 g/dL (31.0-37.0); MCV 93.6 fL (80.0-100.0); Mean Platelet Volume 7.5; Monocytes % (A) 4 %; Neutrophils # (A) 20.7 k/uL (1.3-7.7); Neutrophils % (A) 91 %; Platelet Count 559 k/uL (150-450); RBC 5.01 m/uL (4.30-5.90); RDW 13.7 % (11.5-15.5); WBC 22.8 k/uL (3.8-10.6)
[2021-08-15 09:45] LABS: C Reactive Protein 2.1 mg/dL (<1.0); Calcium 8.8 mg/dL (8.4-10.2); Potassium 4.6 mmol/L (3.5-5.1); Total Bilirubin 0.5 mg/dL (0.2-1.3); Total Protein 6.1 g/dL (6.3-8.2)
[2021-08-15 11:59] LABS: Glucose,Whole Blood 127 mg/dL (75-99)
--- NOTE | 2021-08-15 12:26 | P.PN ---
Subjective Progress Note Date: 08/15/21 Principal diagnosis: CoVID pneumonia 76-year-old male patient, who presented initially to [facility] and later on transferred to [facility] because of COVID 19 related pneumonia and shortness of breath. Both himself and his felt sick. Both of them are hospitalized for now. The patient started getting sick approximately over a week ago and he recalls his symptoms started approximately 10 days ago. He started having fatigue and tiredness and malaise in addition to some cough and shortness of breath. He ultimately became very weak. He presented to [facility] via EMS. His son noticed that the patient was quite ill and he called EMS and accordingly got transferred to the hospital. The patient has no history of any chronic lung disease. He is a nonsmoker for now. He has not received his vaccination for COVID 19. The patient had no na usea or vomiting no diarrhea. No altered mentation. He was quite hypoxic upon arrival and the patient is currently on 7 L of oxygen by nasal cannula to build a pulse ox of around 85-86%. The patient had a white cell count of 21.2, hemoglobin 14.5, his sodium was 128,. Troponin elevation of 0.4-3 and later on down to 0.287, his d-dimer is at 0.7, normal renal function, resident inflammatory markers are still pending including LDH and CRP. White cell count is at 21.2 with a hemoglobin of 14.5. Chest x-ray is consistent with bilateral pulmonary infiltrates consistent with COVID 19 related pneumonia. EKG showed sinus tachycardia, occasional premature supraventricular complexes and left at rial enlargement. No evidence of any acute ischemic changes. No reported chest pain. No previous history of DVT or pulmonary embolism. 08/06/2021, seeing the patient for a follow-up. The patient is still having labored breathing. The patient was on a high flow oxygen at 15 L and he was switched to 100% nonrebreather facemask. He feels more comfortable with a full facemask for now. He remains on Decadron. No new complaints otherwise. Focused on level was borderline elevated and the patient was given IV Rocephin as an empiric antibiotic coverage. Meanwhile, 2-D echocardiogram was done and was essentially within normal limits. He has a preserved LV function. His ejection fraction is around 55-60%. He does have mild mitral regurgitation. He has also trace tricuspid regurgitation. No significant valvular abnormalities. The patient has no other new complaints for now. He is currently on Decadron. I'm considering starting this patient on Baricitinib per protocol. He does not have clear indication for an underlying infection. He remains on anticoagulation with Lovenox 40 mg subcu for DVT prophylaxis. 08/07/2021, the patient is being seen for a follow-up. He remains on 100% on a beta facemask along with 15 L about 2 by nasal cannula. He feels better on today's evaluation. He states that he is less short of breath. Nevertheless, the patient continues to be hypoxic. The patient is also on Decadron 6 mg IV every 24 hours. There was suspicion for an underlying infection. The patient did have and the patient had a white cell count of 16.6. The white cell count was as high as 23. He is on empiric antibiotic coverage with IV Rocephin. Cultures are negative. We'll monitor the white count for now. The d-dimer today's at 2.1. His LDH level was 1121 and his CRP is 14.4. The patient's focused on her level dropped down to 0.2 from a baseline of 0.37. The Doppler of the lower extremity was negative. The CT angiogram showed no evidence of any pulmonary embolism. Echocardiogram was consistent with normal LV function. I'm still considering starting the patient on Baricitinib at a later stage once the cultures are essentially finalized. On 08/08/2021 patient seen in follow-up on selective care unit, patient is on 15 L high flow nasal cannula and her percent nonrebreather mask, and his pulse ox is 92%. He is short of breath with exertion, and conversation, but no acute distress was noted, his been get not been using the bedside commode, tolerates it fairly well. Afebrile, hemodynamically stable. Today's chest x-ray has been reviewed showing bilateral multifocal and confluent opacities greater on the left consistent with known history of COVID-19 infection with no significant change. Today's lab have been reviewed, his d-dimer is 5.7, increased from yesterday's value, sodium is 134, and respiratory electrolytes are within normal limits, BUN is 18 creatinine 0.69. CRP is 21, his LDH has increased to 1223. Urinalysis a few days ago showed 1+ ketones, +1 protein, and many bacteria, patient was treated for possibility of urinary tract infection with Rocephin, his repeat pro calcitonin came back lower at 0.20, and urine culture showed no growth. Rocephin will be discontinued. Culture showed no growth. Lung sounds reveal diffuse bilateral crackles. Patient appears to be mildly fatigued, but no acute distress. 08/09/2021, the patient is being seen for a follow-up. He was on a combination of 100% nonrebreather facemask and 15 L nasal cannula. I took him off the 100% nonrebreather while having foot and the patient was able to maintain a saturation as low as 90%. I would consider this to be an improvement. Otherwis e the patient is doing well. No specific complaints. Is a good appetite. He has no new complaints. He gets short of breath with speech and minimal amount of activity. His electrodes are all within normal limits. His LFTs are slightly elevated and the patient has a component of mild transaminitis. The patient is also noted to have a white cell count of 18.4 with a hemoglobin of 14.3. No other new complaints otherwise for now. Is afebrile. His hemodynamics are stable. He remains on a combination of Decadron and Baricitinib. 08/10/2021, the patient is doing well. No specific complaints. Remains on a on the percent nonrebreather facemask in addition to 15 L of oxygen by nasal cannu la. Condition is unchanged compared to yesterday and the patient continues to desaturate whenever he takes off his nonrebreather fullface mask. For instance, while having lunch, pulse ox dropped down to the 70s while off the mask. As such, he needs both sources of oxygen. He remains on Decadron. He remains on Baricitinib per protocol. He is also on Lovenox 40 mg subcu for prophylaxis. On his blood work, the patient's LDH level is down to 951, CRP is down to 13, normal coagulation profile, white cell count is 16.1 with a hemoglobin of 13.6. Platelet count is normal at 503. No fever. No chills. No sweats. No other complaints otherwise for now. Reevaluated today on 08/11/2021, patient remains on high flow oxygen. He is actually on 15 L high flow, nonrebreather mask, patient is surprisingly doing well, does not seem to be in any distress, chest x-ray is quite abnormal showing significant bilateral infiltrates. Patient remains on Decadron, remains on Lovenox 40 mg subcu daily, and he remains on baricitinib. WBC count is trending down down to 15.7 hemoglobin 14.4 electrolytes are normal renal profile is normal liver enzymes are slightly elevated with AST of 85 AST of 186. No calcitonin on admission was 0.20. Chest x-ray from yesterday showed no change compared to admission x-ray, continues to have scattered opacities in both lungs. On 08/12/2021 patient seen in follow-up on selective care, he remains on 15 L high flow nasal cannula, and 100 percent nonrebreather mask, his pulse ox is 92%, he is dyspneic with exertion, but patient has been able to get up and down to use the bedside commode, afebrile, hemodynamically he is been stable. Patient remains on Baricitinib, Decadron, prophylactic anticoagulation in the form of Lovenox. His last chest x-ray from 08/10/2021 showed no interval change in the scattered lung airspace opacities. His been reviewed, his platelet count 17, hemoglobin is 14.3, d-dimer is improved and is down to 3.49, sodium is 134, the rest of electrolytes were within normal limits, B1 is 23, creatinine is 0.71, his LDH is slightly increased from his most recent value, and is up to 1073, his CRP is improved and is down to 5.9. CT angiogram of the chest showed no evidence of pulmonary embolism, and lower extremity Dopplers were negative for DVT. Patient has been compliant with repositioning self in bed. Today he is feeling depressed, he is teary-eyed, his is hospitalized at [facility], with COVID-19 pneumonia, she is critically ill, she is intubated, sedated and paralyzed, and apparently she took a turn for the worse. On 08/13/2021 patient is seen in follow-up on selective care unit. He remains on 15 L in nonrebreather Mask, he is breathing comfortably, he states his cough is improved compared to yesterday, overnight he did have some increased difficulty breathing and did require BiPAP support, he is back on high flow oxygen and nonrebreather mask, breathing comfortably. Continues on Baricitinib, continues on prophylactic Lovenox 40 mg twice daily, Decadron 6 mg twice daily and COVID-19 vitamins. Today's labs have been reviewed, his white blood cell count is relatively stable with slight increased at 18.2, hemoglobin is 14.3, last d-dimer was yesterday at 3.49, sodium is 135, the rest of the electrolytes and renal profile were unremarkable, his CRP has improved since admission however his LDH has remained relatively stable in the 900-1000 range. No new chest x-ray today, his last chest x-ray from 08/10/2021 showed moderate sized focal areas of dense lung opacification unchanged in appearance. Reevaluated today on 08/14/2021, patient remains on high flow oxygen, he is a nonrebreather mask, 15 L high flow cannula. His overall pulmonary status is about the same, he is not getting better and is not getting any worse. Patient is intermittently on BiPAP, but now he is on a nonrebreather mask. And he seems to be very comfortable. Remains on the COVID-19 cocktail, remains on Decadron twice a day Lovenox 40 mg twice a day he is also on baricitinib. Patient does have leukocytosis with WBC count of 27.2, he has a high potassium today of 5.7, apparently was 6.1 earlier, and I'm recommending a dose of Lasix 40 mg IV push, follow-up chest x-ray, I would also order a pro-calcitonin, make sure that the patient does not have underlying bacterial infection and if that is the case may have to stop his baricitinib, I will go ahead and put it on hold for now. The patient is seen today 08/15/2021 in follow-up on the selective care unit. He was having issues with worsening hypoxemia early this morning and he is now on BiPAP 08/11 and 100% FiO2 to maintain O2 saturations in the low 90s. Chest x- ray continues to show bilateral patchy infiltrates left greater than right. He was given IV diuretics yesterday. Yesterday his Baricitinib was discontinued and we were contemplating antibiotics however his pro-calcitonin did come back at 0.05. Baricitinib will be resumed today. White count 22.8. Hemoglobin 15.1. Platelet count 559. Lymphocytes 0.9. D-dimer 1.81. Sodium 133. Potas sium 4.6. Creatinine 0.97. AST 63. ALT 212. LDH 894. C-reactive protein 2.1. He remains on Lovenox 40 twice a day him on Decadron, vitamin supplements. Objective - Vital Signs Vital signs: Vital Signs Temp 97.6 F 08/15/21 04:00 Pulse 50 L 08/15/21 11:51 Resp 24 08/15/21 11:51 BP 121/74 08/15/21 11:51 Pulse Ox 96 08/15/21 11:51 Intake & Output 08/14/21 08/15/21 08/15/21 18:59 06:59 18:59 Intake Total 960 Output Total 625 Balance 960 -625 Weight 86.5 kg Intake: Oral 960 Output: Urine 625 Other: Voiding Method Bedside Commode # Voids 1 # Bowel Movements 1 - Exam GENERAL EXAM: Alert, pleasant 76-year-old gentleman, on BiPAP 12/600% FiO2, fairly comfortable in no apparent distress. HEAD: Normocephalic. EYES: Normal reaction of pupils, equal size. NOSE: Clear with pink turbinates. THROAT: No erythema or exudates. NECK: No masses, no JVD. CHEST: No chest wall deformity. LUNGS: Equal air entry with coarse crackles in the bilateral bases. CVS: S1 and S2 normal with no audible murmur, regular rhythm. ABDOMEN: No hepatosplenomegaly, normal bowel sounds, no guarding or rigidity. SPINE: No scoliosis or deformity SKIN: No rashes CENTRAL NERVOUS SYSTEM: No focal deficits, tone is normal in all 4 extremities. EXTREMITIES: There is no peripheral edema. No clubbing, no cyanosis. Peripheral pulses are intact. - Labs CBC & Chem 7: 08/15/21 08:32 08/15/21 08:32 Labs: Abnormal Lab Results - Last 24 Hours (Table) 08/14/21 08/14/21 08/14/21 Range/Units 12:33 16:26 20:19 WBC (3.8-10.6) k/uL Plt Count (150-450) k/uL Neutrophils # (1.3-7.7) k/uL Lymphocytes # (1.0-4.8) k/uL D-Dimer (<0.60) mg/L FEU Sodium (137-145) mmol/L Potassium 5.7 H (3.5-5.1) mmol/L Chloride (98-107) mmol/L BUN (9-20) mg/dL Glucose (74-99) mg/dL POC Glucose (mg/dL) 138 H 188 H (75-99) mg/dL AST (17-59) U/L ALT (4-49) U/L Lactate Dehydrogenase (313-618) U/L C-Reactive Protein (<1.0) mg/dL Total Protein (6.3-8.2) g/dL Albumin (3.5-5.0) g/dL 08/15/21 08/15/21 08/15/21 Range/Units 06:10 08:32 08:32 WBC 22.8 H (3.8-10.6) k/uL Plt Count 559 H (150-450) k/uL Neutrophils # 20.7 H (1.3-7.7) k/uL Lymphocytes # 0.9 L (1.0-4.8) k/uL D-Dimer (<0.60) mg/L FEU Sodium 133 L (137-145) mmol/L Potassium (3.5-5.1) mmol/L Chloride 96 L (98-107) mmol/L BUN 36 H (9-20) mg/dL Glucose 199 H (74-99) mg/dL POC Glucose (mg/dL) 138 H (75-99) mg/dL AST 63 H (17-59) U/L ALT 212 H (4-49) U/L Lactate Dehydrogenase 894 H (313-618) U/L C-Reactive Protein 2.1 H (<1.0) mg/dL Total Protein 6.1 L (6.3-8.2) g/dL Albumin 3.0 L (3.5-5.0) g/dL 08/15/21 08/15/21 Range/Units 08:32 11:54 WBC (3.8-10.6) k/uL Plt Count (150-450) k/uL Neutrophils # (1.3-7.7) k/uL Lymphocytes # (1.0-4.8) k/uL D-Dimer 1.81 H (<0.60) mg/L FEU Sodium (137-145) mmol/L Potassium (3.5-5.1) mmol/L Chloride (98-107) mmol/L BUN (9-20) mg/dL Glucose (74-99) mg/dL POC Glucose (mg/dL) 127 H (75-99) mg/dL AST (17-59) U/L ALT (4-49) U/L Lactate Dehydrogenase (313-618) U/L C-Reactive Protein (<1.0) mg/dL Total Protein (6.3-8.2) g/dL Albumin (3.5-5.0) g/dL Assessment and Plan Assessment: 1 Acute COVID-19 pneumonia with acute hypoxic respiratory failure, CT angiogram showed no evidence of pulmonary embolism. Patient is on multiple medications for COVID-19 infection including baricitinib 2 History of CVA 3 History of dyslipidemia 4 Coronary artery disease and previous myocardial infarction 5 Benign essential hypertension 6 Hypovolemic hyponatremia 7 Troponin leak 8 Hyperkalemia, improved currently 4.6 9 Leukocytosis, etiology is not clear, pro-calcitonin 0.05. Baricitinib will be resumed Plan: The patient was seen and evaluated Currently on BiPAP 12/6 and 100% FiO2 Chest x-ray continues to show bilateral patchy infiltrates, left greater than right Pro-calcitonin 0.05, Baricitinib resumed Continued on Lovenox, Decadron, vitamin supplements Titrate the FiO2 as tolerated Prognosis guarded We'll continue to follow I, the cosigning physician, performed a history & physical examination of the patient. Lungs sounds coarse crackles in the bilateral bases. Maintaining O2 saturations in the 90s on BiPAP 12/6 and 100% FiO2. I discussed the assessment and plan of care with my nurse practitioner, Catie Conner. I attest to the above note as dictated by her.
[2021-08-15] MEDS: BARICITINIB 2 MG TABLET PO SCH (16:52)
[2021-08-15 16:55] LABS: Glucose,Whole Blood 143 mg/dL (75-99)
[2021-08-15 20:18] LABS: Glucose,Whole Blood 248 mg/dL (75-99)
[2021-08-15] MEDS: ATORVASTATIN 40 MG TAB PO SCH (22:24)
[2021-08-16 06:06] LABS: Glucose,Whole Blood 142 mg/dL (75-99)
[2021-08-16] MEDS: INSULIN ASPART (NovoLOG) 100 UNIT/ML VIAL SQ SCH ×4 (06:46→21:49)
[2021-08-16] MEDS: ALBUTEROL HFA INHALER INHALATION PRN ×2 (08:07→12:00)
[2021-08-16 08:44] LABS: Basophils % (A) 0 %; Eosinophils % (A) 0 %; HCT 47.9 % (39.0-53.0); HGB 15.8 gm/dL (13.0-17.5); Lymphocytes % (A) 4 %; MCH 30.7 pg (25.0-35.0); MCHC 32.9 g/dL (31.0-37.0); MCV 93.3 fL (80.0-100.0); Mean Platelet Volume 7.4; Monocytes # (A) 1.1 k/uL (0-1.0); Monocytes % (A) 4 %; Neutrophils # (A) 23.5 k/uL (1.3-7.7); Neutrophils % (A) 91 %; Platelet Count 558 k/uL (150-450); RBC 5.14 m/uL (4.30-5.90); RDW 13.5 % (11.5-15.5); WBC 25.8 k/uL (3.8-10.6)
[2021-08-16] MEDS: DEXAMETHASONE SOD PHOSPHATE 10 MG/ML 1 ML VIAL IVP SCH ×2 (08:48→21:50)
[2021-08-16] MEDS: CHOLECALCIFEROL 125 MCG (5000 IU) TABLET PO SCH (08:49)
[2021-08-16] MEDS: ENOXAPARIN 40 MG/0.4 ML SYRINGE SQ SCH ×2 (08:49→21:49)
[2021-08-16] MEDS: ASCORBIC ACID 500 MG TAB PO SCH ×2 (08:49→21:50)
[2021-08-16] MEDS: ZINC SULFATE 220 MG CAP PO SCH (08:49)
[2021-08-16] MEDS: METOPROLOL TARTRATE 50 MG TAB PO SCH ×2 (08:49→21:50)
[2021-08-16] MEDS: FAMOTIDINE 20 MG TAB PO SCH (08:50)
[2021-08-16] MEDS: ASPIRIN 81 MG PO SCH (08:50)
[2021-08-16 09:02] LABS: ALT 161 U/L (4-49); AST 45 U/L (17-59); African American GFR (CKD) >90 (>60 ml/min/1.73 sqM); Albumin 3.1 g/dL (3.5-5.0); Alkaline Phosphatase 95 U/L (38-126); Anion Gap 11 mmol/L; Blood Urea Nitrogen 32 mg/dL (9-20); Calcium 9.1 mg/dL (8.4-10.2); Carbon Dioxide 26 mmol/L (22-30); Chloride 97 mmol/L (98-107); Glucose 181 mg/dL (74-99); Non-African American GFR(CKD) 78 (>60 ml/min/1.73 sqM); Potassium 5.2 mmol/L (3.5-5.1); Sodium 134 mmol/L (137-145); Total Bilirubin 0.8 mg/dL (0.2-1.3); Total Protein 6.4 g/dL (6.3-8.2)
[2021-08-16 12:05] LABS: Glucose,Whole Blood 163 mg/dL (75-99)
--- NOTE | 2021-08-16 13:06 | P.PN ---
Subjective Progress Note Date: 08/16/21 Principal diagnosis: CoVID pneumonia 76-year-old male patient, who presented initially to [facility] and later on transferred to [facility] because of COVID 19 related pneumonia and shortness of breath. Both himself and his felt sick. Both of them are hospitalized for now. The patient started getting sick approximately over a week ago and he recalls his symptoms started approximately 10 days ago. He started having fatigue and tiredness and malaise in addition to some cough and shortness of breath. He ultimately became very weak. He presented to [facility] via EMS. His son noticed that the patient was quite ill and he called EMS and accordingly got transferred to the hospital. The patient has no history of any chronic lung disease. He is a nonsmoker for now. He has not received his vaccination for COVID 19. The patient had no na usea or vomiting no diarrhea. No altered mentation. He was quite hypoxic upon arrival and the patient is currently on 7 L of oxygen by nasal cannula to build a pulse ox of around 85-86%. The patient had a white cell count of 21.2, hemoglobin 14.5, his sodium was 128,. Troponin elevation of 0.4-3 and later on down to 0.287, his d-dimer is at 0.7, normal renal function, resident inflammatory markers are still pending including LDH and CRP. White cell count is at 21.2 with a hemoglobin of 14.5. Chest x-ray is consistent with bilateral pulmonary infiltrates consistent with COVID 19 related pneumonia. EKG showed sinus tachycardia, occasional premature supraventricular complexes and left at rial enlargement. No evidence of any acute ischemic changes. No reported chest pain. No previous history of DVT or pulmonary embolism. 08/06/2021, seeing the patient for a follow-up. The patient is still having labored breathing. The patient was on a high flow oxygen at 15 L and he was switched to 100% nonrebreather facemask. He feels more comfortable with a full facemask for now. He remains on Decadron. No new complaints otherwise. Focused on level was borderline elevated and the patient was given IV Rocephin as an empiric antibiotic coverage. Meanwhile, 2-D echocardiogram was done and was essentially within normal limits. He has a preserved LV function. His ejection fraction is around 55-60%. He does have mild mitral regurgitation. He has also trace tricuspid regurgitation. No significant valvular abnormalities. The patient has no other new complaints for now. He is currently on Decadron. I'm considering starting this patient on Baricitinib per protocol. He does not have clear indication for an underlying infection. He remains on anticoagulation with Lovenox 40 mg subcu for DVT prophylaxis. 08/07/2021, the patient is being seen for a follow-up. He remains on 100% on a beta facemask along with 15 L about 2 by nasal cannula. He feels better on today's evaluation. He states that he is less short of breath. Nevertheless, the patient continues to be hypoxic. The patient is also on Decadron 6 mg IV every 24 hours. There was suspicion for an underlying infection. The patient did have and the patient had a white cell count of 16.6. The white cell count was as high as 23. He is on empiric antibiotic coverage with IV Rocephin. Cultures are negative. We'll monitor the white count for now. The d-dimer today's at 2.1. His LDH level was 1121 and his CRP is 14.4. The patient's focused on her level dropped down to 0.2 from a baseline of 0.37. The Doppler of the lower extremity was negative. The CT angiogram showed no evidence of any pulmonary embolism. Echocardiogram was consistent with normal LV function. I'm still considering starting the patient on Baricitinib at a later stage once the cultures are essentially finalized. On 08/08/2021 patient seen in follow-up on selective care unit, patient is on 15 L high flow nasal cannula and her percent nonrebreather mask, and his pulse ox is 92%. He is short of breath with exertion, and conversation, but no acute distress was noted, his been get not been using the bedside commode, tolerates it fairly well. Afebrile, hemodynamically stable. Today's chest x-ray has been reviewed showing bilateral multifocal and confluent opacities greater on the left consistent with known history of COVID-19 infection with no significant change. Today's lab have been reviewed, his d-dimer is 5.7, increased from yesterday's value, sodium is 134, and respiratory electrolytes are within normal limits, BUN is 18 creatinine 0.69. CRP is 21, his LDH has increased to 1223. Urinalysis a few days ago showed 1+ ketones, +1 protein, and many bacteria, patient was treated for possibility of urinary tract infection with Rocephin, his repeat pro calcitonin came back lower at 0.20, and urine culture showed no growth. Rocephin will be discontinued. Culture showed no growth. Lung sounds reveal diffuse bilateral crackles. Patient appears to be mildly fatigued, but no acute distress. 08/09/2021, the patient is being seen for a follow-up. He was on a combination of 100% nonrebreather facemask and 15 L nasal cannula. I took him off the 100% nonrebreather while having foot and the patient was able to maintain a saturation as low as 90%. I would consider this to be an improvement. Otherwis e the patient is doing well. No specific complaints. Is a good appetite. He has no new complaints. He gets short of breath with speech and minimal amount of activity. His electrodes are all within normal limits. His LFTs are slightly elevated and the patient has a component of mild transaminitis. The patient is also noted to have a white cell count of 18.4 with a hemoglobin of 14.3. No other new complaints otherwise for now. Is afebrile. His hemodynamics are stable. He remains on a combination of Decadron and Baricitinib. 08/10/2021, the patient is doing well. No specific complaints. Remains on a on the percent nonrebreather facemask in addition to 15 L of oxygen by nasal cannu la. Condition is unchanged compared to yesterday and the patient continues to desaturate whenever he takes off his nonrebreather fullface mask. For instance, while having lunch, pulse ox dropped down to the 70s while off the mask. As such, he needs both sources of oxygen. He remains on Decadron. He remains on Baricitinib per protocol. He is also on Lovenox 40 mg subcu for prophylaxis. On his blood work, the patient's LDH level is down to 951, CRP is down to 13, normal coagulation profile, white cell count is 16.1 with a hemoglobin of 13.6. Platelet count is normal at 503. No fever. No chills. No sweats. No other complaints otherwise for now. Reevaluated today on 08/11/2021, patient remains on high flow oxygen. He is actually on 15 L high flow, nonrebreather mask, patient is surprisingly doing well, does not seem to be in any distress, chest x-ray is quite abnormal showing significant bilateral infiltrates. Patient remains on Decadron, remains on Lovenox 40 mg subcu daily, and he remains on baricitinib. WBC count is trending down down to 15.7 hemoglobin 14.4 electrolytes are normal renal profile is normal liver enzymes are slightly elevated with AST of 85 AST of 186. No calcitonin on admission was 0.20. Chest x-ray from yesterday showed no change compared to admission x-ray, continues to have scattered opacities in both lungs. On 08/12/2021 patient seen in follow-up on selective care, he remains on 15 L high flow nasal cannula, and 100 percent nonrebreather mask, his pulse ox is 92%, he is dyspneic with exertion, but patient has been able to get up and down to use the bedside commode, afebrile, hemodynamically he is been stable. Patient remains on Baricitinib, Decadron, prophylactic anticoagulation in the form of Lovenox. His last chest x-ray from 08/10/2021 showed no interval change in the scattered lung airspace opacities. His been reviewed, his platelet count 17, hemoglobin is 14.3, d-dimer is improved and is down to 3.49, sodium is 134, the rest of electrolytes were within normal limits, B1 is 23, creatinine is 0.71, his LDH is slightly increased from his most recent value, and is up to 1073, his CRP is improved and is down to 5.9. CT angiogram of the chest showed no evidence of pulmonary embolism, and lower extremity Dopplers were negative for DVT. Patient has been compliant with repositioning self in bed. Today he is feeling depressed, he is teary-eyed, his is hospitalized at [facility], with COVID-19 pneumonia, she is critically ill, she is intubated, sedated and paralyzed, and apparently she took a turn for the worse. On 08/13/2021 patient is seen in follow-up on selective care unit. He remains on 15 L in nonrebreather Mask, he is breathing comfortably, he states his cough is improved compared to yesterday, overnight he did have some increased difficulty breathing and did require BiPAP support, he is back on high flow oxygen and nonrebreather mask, breathing comfortably. Continues on Baricitinib, continues on prophylactic Lovenox 40 mg twice daily, Decadron 6 mg twice daily and COVID-19 vitamins. Today's labs have been reviewed, his white blood cell count is relatively stable with slight increased at 18.2, hemoglobin is 14.3, last d-dimer was yesterday at 3.49, sodium is 135, the rest of the electrolytes and renal profile were unremarkable, his CRP has improved since admission however his LDH has remained relatively stable in the 900-1000 range. No new chest x-ray today, his last chest x-ray from 08/10/2021 showed moderate sized focal areas of dense lung opacification unchanged in appearance. Reevaluated today on 08/14/2021, patient remains on high flow oxygen, he is a nonrebreather mask, 15 L high flow cannula. His overall pulmonary status is about the same, he is not getting better and is not getting any worse. Patient is intermittently on BiPAP, but now he is on a nonrebreather mask. And he seems to be very comfortable. Remains on the COVID-19 cocktail, remains on Decadron twice a day Lovenox 40 mg twice a day he is also on baricitinib. Patient does have leukocytosis with WBC count of 27.2, he has a high potassium today of 5.7, apparently was 6.1 earlier, and I'm recommending a dose of Lasix 40 mg IV push, follow-up chest x-ray, I would also order a pro-calcitonin, make sure that the patient does not have underlying bacterial infection and if that is the case may have to stop his baricitinib, I will go ahead and put it on hold for now. The patient is seen today 08/15/2021 in follow-up on the selective care unit. He was having issues with worsening hypoxemia early this morning and he is now on BiPAP 08/11 and 100% FiO2 to maintain O2 saturations in the low 90s. Chest x- ray continues to show bilateral patchy infiltrates left greater than right. He was given IV diuretics yesterday. Yesterday his Baricitinib was discontinued and we were contemplating antibiotics however his pro-calcitonin did come back at 0.05. Baricitinib will be resumed today. White count 22.8. Hemoglobin 15.1. Platelet count 559. Lymphocytes 0.9. D-dimer 1.81. Sodium 133. Potas sium 4.6. Creatinine 0.97. AST 63. ALT 212. LDH 894. C-reactive protein 2.1. He remains on Lovenox 40 twice a day him on Decadron, vitamin supplements. The patient is seen today 08/16/2021 in follow-up on the selective care unit. He remains on BiPAP 12/6 in the 100% FiO2 to maintain O2 saturations in the high 80s low 90s. Chest x-ray continues to show bilateral patchy infiltrates left greater than right. Blood cultures reveal no growth. Urine culture revealed no growth. White count remains high at 25.8. Pro-calcitonin 0.05. He was resumed back on Baricitinib yesterday. Continues on Decadron, Lovenox, vitamin supplements. Hemoglobin 15.8. Platelets 558. Sodium 134. Potassium 5.2. Creatinine 0.95. AST 45. ALT 161. Objective - Vital Signs Vital signs: Vital Signs Temp 97.5 F L 08/16/21 11:59 Pulse 56 L 08/16/21 11:59 Resp 35 H 08/16/21 11:59 BP 144/75 08/16/21 11:59 Pulse Ox 95 08/16/21 11:59 Intake & Output 08/15/21 08/16/21 08/16/21 18:59 06:59 18:59 Intake Total 478 250 Output Total 200 300 350 Balance 278 -300 -100 Weight 75 kg Intake: IV 10 Invasive Line 3 10 Oral 478 240 Output: Urine 200 300 350 Other: Voiding Method Bedside Commode Urinal # Voids 1 - Exam GENERAL EXAM: Alert, pleasant 76-year-old gentleman, on BiPAP 12/6 and 100% FiO2, fairly comfortable in no apparent distress. HEAD: Normocephalic. EYES: Normal reaction of pupils, equal size. NOSE: Clear with pink turbinates. THROAT: No erythema or exudates. NECK: No masses, no JVD. CHEST: No chest wall deformity. LUNGS: Equal air entry with coarse crackles in the bilateral bases. CVS: S1 and S2 normal with no audible murmur, regular rhythm. ABDOMEN: No hepatosplenomegaly, normal bowel sounds, no guarding or rigidity. SPINE: No scoliosis or deformity SKIN: No rashes CENTRAL NERVOUS SYSTEM: No focal deficits, tone is normal in all 4 extremities. EXTREMITIES: There is no peripheral edema. No clubbing, no cyanosis. Peripheral pulses are intact. - Labs CBC & Chem 7: 08/16/21 08:14 08/16/21 08:14 Labs: Abnormal Lab Results - Last 24 Hours (Table) 08/15/21 08/15/21 08/16/21 Range/Units 16:54 20:17 06:05 WBC (3.8-10.6) k/uL Plt Count (150-450) k/uL Neutrophils # (1.3-7.7) k/uL Monocytes # (0-1.0) k/uL Sodium (137-145) mmol/L Potassium (3.5-5.1) mmol/L Chloride (98-107) mmol/L BUN (9-20) mg/dL Glucose (74-99) mg/dL POC Glucose (mg/dL) 143 H 248 H 142 H (75-99) mg/dL ALT (4-49) U/L Albumin (3.5-5.0) g/dL 08/16/21 08/16/21 08/16/21 Range/Units 08:14 08:14 12:02 WBC 25.8 H (3.8-10.6) k/uL Plt Count 558 H (150-450) k/uL Neutrophils # 23.5 H (1.3-7.7) k/uL Monocytes # 1.1 H (0-1.0) k/uL Sodium 134 L (137-145) mmol/L Potassium 5.2 H (3.5-5.1) mmol/L Chloride 97 L (98-107) mmol/L BUN 32 H (9-20) mg/dL Glucose 181 H (74-99) mg/dL POC Glucose (mg/dL) 163 H (75-99) mg/dL ALT 161 H (4-49) U/L Albumin 3.1 L (3.5-5.0) g/dL Assessment and Plan Assessment: 1 Acute COVID-19 pneumonia with acute hypoxic respiratory failure, CT angiogram showed no evidence of pulmonary embolism. Remains on baricitinib 2 History of CVA 3 History of dyslipidemia 4 Coronary artery disease and previous myocardial infarction 5 Benign essential hypertension 6 Hypovolemic hyponatremia 7 Troponin leak 8 Hyperkalemia, improved currently 4.6 9 Leukocytosis, etiology is not clear, pro-calcitonin 0.05. Baricitinib will be resumed Plan: The patient was seen and evaluated Currently on BiPAP 12/6 and 100% FiO2 Continued on Lovenox, Decadron, vitamin supplements Titrate the FiO2 as tolerated Prognosis is guarded We'll continue to follow I, the cosigning physician, performed a history & physical examination of the patient. Lungs sounds coarse crackles in the bilateral bases. Maintaining O2 saturations in the 90s on BiPAP 12/6 and 100% FiO2. I discussed the assessment and plan of care with my nurse practitioner, Catie Conner. I attest to the above note as dictated by her.
[2021-08-16 16:50] LABS: Glucose,Whole Blood 148 mg/dL (75-99)
[2021-08-16] MEDS: BARICITINIB 2 MG TABLET PO SCH (17:06)
[2021-08-16] MEDS: SODIUM CHLORIDE 0.9% 1,000 ML IV SCH (17:17)
[2021-08-16 20:23] LABS: Glucose,Whole Blood 238 mg/dL (75-99)
[2021-08-16] MEDS: ATORVASTATIN 40 MG TAB PO SCH (21:50)
[2021-08-17 06:07] LABS: Glucose,Whole Blood 159 mg/dL (75-99)
[2021-08-17] MEDS: INSULIN ASPART (NovoLOG) 100 UNIT/ML VIAL SQ SCH ×4 (06:39→22:24)
[2021-08-17 07:37] LABS: Basophils % (A) 0 %; Eosinophils % (A) 0 %; HGB 14.2 gm/dL (13.0-17.5); Lymphocytes # (A) 0.7 k/uL (1.0-4.8); Lymphocytes % (A) 3 %; MCH 29.7 pg (25.0-35.0); MCHC 32.3 g/dL (31.0-37.0); MCV 91.9 fL (80.0-100.0); Mean Platelet Volume 7.5; Monocytes # (A) 1.1 k/uL (0-1.0); Monocytes % (A) 5 %; Neutrophils # (A) 20.6 k/uL (1.3-7.7); Neutrophils % (A) 91 %; Platelet Count 452 k/uL (150-450); RBC 4.79 m/uL (4.30-5.90); RDW 12.9 % (11.5-15.5); WBC 22.6 k/uL (3.8-10.6)
[2021-08-17 07:52] LABS: ALT 134 U/L (4-49); AST 47 U/L (17-59); African American GFR (CKD) >90 (>60 ml/min/1.73 sqM); Albumin 2.7 g/dL (3.5-5.0); Alkaline Phosphatase 87 U/L (38-126); Anion Gap 4 mmol/L; Blood Urea Nitrogen 30 mg/dL (9-20); Calcium 8.7 mg/dL (8.4-10.2); Carbon Dioxide 30 mmol/L (22-30); Chloride 99 mmol/L (98-107); Glucose 132 mg/dL (74-99); Non-African American GFR(CKD) 85 (>60 ml/min/1.73 sqM); Potassium 5.8 mmol/L (3.5-5.1); Sodium 133 mmol/L (137-145); Total Bilirubin 0.8 mg/dL (0.2-1.3); Total Protein 5.7 g/dL (6.3-8.2)
[2021-08-17] MEDS: METOPROLOL TARTRATE 50 MG TAB PO SCH ×2 (08:14→22:25)
[2021-08-17] MEDS: ENOXAPARIN 40 MG/0.4 ML SYRINGE SQ SCH ×2 (08:14→22:25)
[2021-08-17] MEDS: FAMOTIDINE 20 MG TAB PO SCH (08:15)
[2021-08-17] MEDS: ASPIRIN 81 MG PO SCH (08:15)
[2021-08-17] MEDS: DEXAMETHASONE SOD PHOSPHATE 10 MG/ML 1 ML VIAL IVP SCH ×2 (08:15→22:25)
[2021-08-17] MEDS: ASCORBIC ACID 500 MG TAB PO SCH ×2 (08:15→22:25)
[2021-08-17] MEDS: ZINC SULFATE 220 MG CAP PO SCH (08:15)
[2021-08-17] MEDS: CHOLECALCIFEROL 125 MCG (5000 IU) TABLET PO SCH (08:15)
[2021-08-17] MEDS: ALBUTEROL HFA INHALER INHALATION PRN ×3 (09:08→20:11)
[2021-08-17 11:44] LABS: Glucose,Whole Blood 229 mg/dL (75-99)
[2021-08-17] MEDS: SODIUM CHLORIDE 0.9% 1,000 ML IV SCH (12:19)
[2021-08-17] MEDS: BARICITINIB 2 MG TABLET PO SCH (15:43)
--- NOTE | 2021-08-17 15:53 | P.PN ---
Subjective Progress Note Date: 08/17/21 Principal diagnosis: 76-year-old male patient, who presented initially to [facility] and later on transferred to [facility] because of COVID 19 related pneumonia and shortness of breath. Both himself and his felt sick. Both of them are hospitalized for now. The patient started getting sick approximately over a week ago and he recalls his symptoms started approximately 10 days ago. He started having fatigue and tiredness and malaise in addition to some cough and shortness of breath. He ultimately became very weak. He presented to [facility] via EMS. His son noticed that the patient was quite ill and he called EMS and accordingly got transferred to the hospital. The patient has no history of any chronic lung disease. He is a nonsmoker for now. He has not received his vaccination for COVID 19. The patient had no nausea or vomiting no diarrhea. No altered mentation. He was quite hypoxic upon arrival and the patient is currently on 7 L of oxygen by nasal cannula to build a pulse ox of around 85-86%. The patient had a white cell count of 21.2, hemoglobin 14.5, his sodium was 128,. Troponin elevation of 0.4-3 and later on down to 0.287, his d-dimer is at 0.7, normal renal function, resident inflammatory markers are still pending including LDH and CRP. White cell count is at 21.2 with a hemoglobin of 14.5. Chest x-ray is consistent with bilateral pulmonary infiltrates consistent with COVID 19 related pneumonia. EKG showed sinus tachycardia, occasional premature supraventricular complexes and left atrial enlargement. No evidence of any acute ischemic changes. No reported chest pain. No previous history of DVT or pulmonary embolism. 08/06/2021, seeing the patient for a follow-up. The patient is still having la bored breathing. The patient was on a high flow oxygen at 15 L and he was switched to 100% nonrebreather facemask. He feels more comfortable with a full facemask for now. He remains on Decadron. No new complaints otherwise. Focused on level was borderline elevated and the patient was given IV Rocephin as an empiric antibiotic coverage. Meanwhile, 2-D echocardiogram was done and was essentially within normal limits. He has a preserved LV function. His ejection fraction is around 55-60%. He does have mild mitral regurgitation. He has also trace tricuspid regurgitation. No significant valvular abnormalities. The patient has no other new complaints for now. He is currently on Decadron. I'm considering starting this patient on Baricitinib per protocol. He does not have clear indication for an underlying infection. He remains on anticoagulation with Lovenox 40 mg subcu for DVT prophylaxis. 08/07/2021, the patient is being seen for a follow-up. He remains on 100% on a beta facemask along with 15 L about 2 by nasal cannula. He feels better on today's evaluation. He states that he is less short of breath. Nevertheless, the patient continues to be hypoxic. The patient is also on Decadron 6 mg IV every 24 hours. There was suspicion for an underlying infection. The patient did have and the patient had a white cell count of 16.6. The white cell count was as high as 23. He is on empiric antibiotic coverage with IV Rocephin. Cultures are negative. We'll monitor the white count for now. The d-dimer today's at 2.1. His LDH level was 1121 and his CRP is 14.4. The patient's focused on her level dropped down to 0.2 from a baseline of 0.37. The Doppler of the lower extremity was negative. The CT angiogram showed no evidence of any pulmonary embolism. Echocardiogram was consistent with normal LV function. I'm still considering starting the patient on Baricitinib at a later stage once the cultures are essentially finalized. On 08/08/2021 patient seen in follow-up on selective care unit, patient is on 15 L high flow nasal cannula and her percent nonrebreather mask, and his pulse ox is 92%. He is short of breath with exertion, and conversation, but no acute distress was noted, his been get not been using the bedside commode, tolerates it fairly well. Afebrile, hemodynamically stable. Today's chest x-ray has been reviewed showing bilateral multifocal and confluent opacities greater on the left consistent with known history of COVID-19 infection with no significant change. Today's lab have been reviewed, his d-dimer is 5.7, increased from ye sterday's value, sodium is 134, and respiratory electrolytes are within normal limits, BUN is 18 creatinine 0.69. CRP is 21, his LDH has increased to 1223. Urinalysis a few days ago showed 1+ ketones, +1 protein, and many bacteria, patient was treated for possibility of urinary tract infection with Rocephin, his repeat pro calcitonin came back lower at 0.20, and urine culture showed no growth. Rocephin will be discontinued. Culture showed no growth. Lung sounds reveal diffuse bilateral crackles. Patient appears to be mildly fatigued, but no acute distress. On 08/12/2021 patient seen in follow-up on selective care, he remains on 15 L high flow nasal cannula, and 100 percent nonrebreather mask, his pulse ox is 92%, he is dyspneic with exertion, but patient has been able to get up and down to use the bedside commode, afebrile, hemodynamically he is been stable. Patient remains on Baricitinib, Decadron, prophylactic anticoagulation in the form of Lovenox. His last chest x-ray from 08/10/2021 showed no interval change in the scattered lung airspace opacities. His been reviewed, his platelet count 17, hemoglobin is 14.3, d-dimer is improved and is down to 3.49, sodium is 134, the rest of electrolytes were within normal limits, B1 is 23, creatinine is 0.71, his LDH is slightly increased from his most recent value, and is up to 1073, his CRP is improved and is down to 5.9. CT angiogram of the chest showed no evidence of pulmonary embolism, and lower extremity Dopplers were negative for DVT. Patient has been compliant with repositioning self in bed. Today he is feeling depressed, he is teary-eyed, his is hospitalized at [facility] with COVID-19 pneumonia, she is critically ill, she is intubated, sedated and paralyzed, and apparently she took a turn for the worse. On 08/13/2021 patient is seen in follow-up on selective care unit. He remains on 15 L in nonrebreather Mask, he is breathing comfortably, he states his cough is improved compared to yesterday, overnight he did have some increased difficulty breathing and did require BiPAP support, he is back on high flow oxygen and nonrebreather mask, breathing comfortably. Continues on Baricitinib, continues on prophylactic Lovenox 40 mg twice daily, Decadron 6 mg twice daily and COVID-19 vitamins. Today's labs have been reviewed, his white blood cell count is relatively stable with slight increased at 18.2, hemoglobin is 14.3, last d-dimer was yesterday at 3.49, sodium is 135, the rest of the electrolytes and renal profile were unremarkable, his CRP has improved since admission however his LDH has remained relatively stable in the 900-1000 range. No new chest x-ray today, his last chest x-ray from 08/10/2021 showed moderate sized focal areas of dense lung opacification unchanged in appearance. On 08/17/2021 patient is seen in follow-up on selective care unit. Patient has been on BiPAP support last night, and was switched to 15 L high flow and nonrebreather mask this morning, his pulse ox is 93%. He looks tired, slightly tachypneic, but no acute distress, he is awake and alert, answering questions appropriately, Continues on Baricitinib, Decadron 6 blood gram twice daily, and Lovenox 40 mg twice daily. He received a dose of IV Lasix yesterday, and he has diuresed 1.1 L in urine output, breathing a bit easier. No new chest x-ray today. Today's labs have been reviewed showing white blood cell count relatively stable maybe slightly improved and down to 22.6, hemoglobin is 14.2, sodium is 133, potassium is 5.8, BUN of 30, creatinine 0.82. Inflammatory markers are still pending for today, pro calcitonin level was negative at 0.05. Objective - Vital Signs Vital signs: Vital Signs Temp 97.8 F 08/17/21 11:30 Pulse 58 L 08/17/21 11:30 Resp 28 H 08/17/21 11:30 BP 144/74 08/17/21 11:30 Pulse Ox 96 08/17/21 11:30 Intake & Output 08/16/21 08/17/21 08/17/21 18:59 06:59 18:59 Intake Total 250 270 600 Output Total 701 400 301 Balance -451 -130 299 Weight 90 kg Intake: IV 10 10 Invasive Line 3 10 Invasive Line 4 10 Intake, IV Titration 600 Amount Sodium Chloride 0.9% 1, 600 000 ml @ 50 mls/hr IV . Q20H STEPHIE Rx#:[id number] Oral 240 260 Output: Urine 700 400 300 Stool 1 1 Other: Voiding Method Urinal Urinal # Voids 1 1 # Bowel Movements 1 - Exam GENERAL EXAM: Alert, very pleasant, 76-year-old white male, currently on 15 L per high flow nasal cannula and 100% percent nonrebreather mask, with pulse ox of 92-95%, comfortable in no apparent distress. Patient is short of breath with exertion, and conversation HEAD: Normocephalic/atraumatic. EYES: Normal reaction of pupils, equal size. Conjunctiva pink, sclera white. NOSE: Clear with pink turbinates. THROAT: No erythema or exudates. NECK: No masses, no JVD, no thyroid enlargement, no adenopathy. CHEST: No chest wall deformity. Symmetrical expansion. LUNGS: Equal air entry with bilateral crackles CVS: Regular rate and rhythm, normal S1 and S2, no gallops, no murmurs, no rubs ABDOMEN: Soft, nontender. No hepatosplenomegaly, normal bowel sounds, no guarding or rigidity. EXTREMITIES: No clubbing, no edema, no cyanosis, 2+ pulses and upper and lower extremities. MUSCULOSKELETAL: Muscle strength and tone normal. SPINE: No scoliosis or deformity SKIN: No rashes CENTRAL NERVOUS SYSTEM: Alert and oriented -3. No focal deficits, tone is normal in all 4 extremities. PSYCHIATRIC: Alert and oriented -3. Appropriate affect. Intact judgment and insight. - Labs CBC & Chem 7: 08/17/21 06:45 08/17/21 06:45 Labs: Abnormal Lab Results - Last 24 Hours (Table) 08/16/21 08/16/21 08/17/21 Range/Units 16:48 20:22 06:05 WBC (3.8-10.6) k/uL Plt Count (150-450) k/uL Neutrophils # (1.3-7.7) k/uL Lymphocytes # (1.0-4.8) k/uL Monocytes # (0-1.0) k/uL Sodium (137-145) mmol/L Potassium (3.5-5.1) mmol/L BUN (9-20) mg/dL Glucose (74-99) mg/dL POC Glucose (mg/dL) 148 H 238 H 159 H (75-99) mg/dL ALT (4-49) U/L Total Protein (6.3-8.2) g/dL Albumin (3.5-5.0) g/dL 12/12/21 12/12/21 12/12/21 Range/Units 06:45 06:45 11:41 WBC 22.6 H (3.8-10.6) k/uL Plt Count 452 H (150-450) k/uL Neutrophils # 20.6 H (1.3-7.7) k/uL Lymphocytes # 0.7 L (1.0-4.8) k/uL Monocytes # 1.1 H (0-1.0) k/uL Sodium 133 L (137-145) mmol/L Potassium 5.8 H (3.5-5.1) mmol/L BUN 30 H (9-20) mg/dL Glucose 132 H (74-99) mg/dL POC Glucose (mg/dL) 229 H (75-99) mg/dL ALT 134 H (4-49) U/L Total Protein 5.7 L (6.3-8.2) g/dL Albumin 2.7 L (3.5-5.0) g/dL Assessment and Plan Plan: #1. Acute COVID 19 related pneumonia. Symptoms started approximately 7-10 days prior to presentation and the patient progressively got worse and presented to us with worsening shortness of breath and acute hypoxic arrest respiratory failure with bilateral COVID 19 related pulmonary infiltrates. The patient is not vaccinated for now. The CT angiogram was consistent with pneumonia. There was no evidence of any pulmonary embolism. Doppler of the lower extremity is been negative. #2. Acute hypoxic respiratory failure secondary to above, has progressed since admission, and currently patient is on 15 L per high flow nasal cannula and her percent nonrebreather mask, with pulse ox of 92%, will be started on Baricitinib today on 08/08/2021 #3. Shortness of breath secondary to above #4. Troponin leak, consider an acute non-STEMI. The patient has no acute ischemic changes on EKG #5. 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 History of coronary artery disease with previous history of myocardial infarction #7. Hyperlipidemia #8. Hypertension #9. Hyponatremia, likely hypovolemic, improved #10. Acute leukocytosis under investigation for now, blood and urine cultures have been negative, pro-calcitonin level is negative Plan: Patient was maintained on BiPAP support overnight, he received a dose of IV Lasix Breathing is slightly improved, and may alternate the patient between high flow oxygen and BiPAP support as needed We'll continue Baricitinib Continue Decadron at 6 mg twice daily Continue prophylactic Lovenox at 40 mg twice daily Continue GI prophylaxis Overall prognosis is extremely guarded I performed a history & physical examination of the patient and discussed their management with my nurse practitioner, Cheryl Palencia. I reviewed the nurse practitioner's note and agree with the documented findings and plan of care. Lung sounds are positive for basilar rales throughout the lung inman. The findings and the impression was discussed with the patient. I attest to the documentation by the nurse practitioner. Time with Patient: Less than 30
[2021-08-17 16:59] LABS: Glucose,Whole Blood 177 mg/dL (75-99)
[2021-08-17] MEDS: ALPRAZolam 0.25 MG TAB PO PRN (18:31)
--- NOTE | 2021-08-17 19:57 | XR ---
EXAMINATION TYPE: XR chest 1V DATE OF EXAM: 08/17/2021 COMPARISON: 08/15/2021 HISTORY: Short of breath TECHNIQUE: FINDINGS: There is patchy bilateral interstitial and airspace consolidation. There are chest leads. H eart size is fairly normal. Bony thorax is intact. IMPRESSION: Bilateral extensive pneumonia which is overall not significantly different than last exam .
[2021-08-17 20:00] LABS: ABG Base Excess 3.8 mmol/L; ABG HCO3 28 mmol/L (21-25); ABG Oxygen Saturation 88.6 % (94-97); ABG PCO2 40 mmHg (35-45); ABG PH 7.45 (7.35-7.45); ABG TCO2 29 mmol/L (19-24); Allen Test Performed? Yes
[2021-08-17 20:05] LABS: ABG PO2 54 mmHg (83-108)
[2021-08-17 20:16] LABS: Glucose,Whole Blood 206 mg/dL (75-99)
[2021-08-17] MEDS ORDERED: propofoL 100 ML IV ONE (20:31)
--- NOTE | 2021-08-17 21:03 | P.PN ---
Subjective Progress Note Date: 08/15/21 Principal diagnosis: COVID-19 viral pneumonia Acute hypoxic respiratory failure Acute non-ST elevation NC 76-year-old pleasant male came in with complaints of shortness of breath and cough and patient is on 6 L of oxygen and found to have Covid 19 pneumonia chest x-ray is consistent with Covid 19. Patient is bit hyponatremic as well. Patient does have history of diabetes mellitus. Patient vaccinated for Covid 19 patient symptoms has been going on for about a week patient's d-dimer is around 0.7. Patient is presently on Lovenox for DVT prophylaxis. Patient denied any history of COPD or asthma patient last smoked about 52 years ago still has s ignificant wheezing on exam. And has a significant generalized weakness and fatigue 08/13/2021 Patient is seen and evaluated in room at bedside; report some improvement in br eathing and improved, Patient remains on O2 at 15 L via nonrebreather mask and high flow nasal cannu la; did have some increased difficulty breathing at night and required BiPAP Labs reviewed reveals white blood cell count is relatively stable with slight increased at 18.2, hemoglobin is 14.3, last d-dimer was yesterday at 3.49, sodium is 135, the rest of the electrolytes and renal profile were unremarkable, his CRP has improved since admission however his LDH has remained relatively stable in the 900-1000 range. No new chest x-ray today, his last chest x-ray from 08/10/2021 showed moderate sized focal areas of dense lung opacification unchanged in appearance. Continues on Baricitinib, continues on prophylactic Lovenox 40 mg twice daily, Decadron 6 mg twice daily and COVID-19 vitamins cocktail. 08/14/2021 Patient is seen and evaluated; oxygen requirement increased since yesterday and currently on O2 per high flow nasal cannula at 15 L along with 15% Ventimask Vital sign review shows temperature of 98, pulse 66, respiration 20 and blood pressure 144/84 O2 saturation ranging between 84-89% Lab review shows markedly elevated potassium of 6.5, and WBC of 27; patient is currently on 6 mg of Decadron every 12 hours which could be resulting in elevated WBC; patient did receive hyperkalemia treatment cocktail; stat repeat potassium level is ordered and pending We will continue to monitor inflammatory markers and pro-calcitonin and CBC 08/15/2021 Patient is seen and evaluated in follow-up on the selective care unit. Concerns about worsening hypoxemia early this morning and he is now on BiPAP 08/11 and 1 00% FiO2 to maintain O2 saturations in the low 90s. Chest x-ray continues to show bilateral patchy infiltrates left greater than right. He was given IV diuretics yesterday. Yesterday his Baricitinib was discontinued and we were contemplating antibiotics however his pro-calcitonin did come back at 0.05. Baricitinib will be resumed today. White count 22.8. Hemoglobin 15.1. Platelet count 559. Lymphocytes 0.9. D-dimer 1.81. Sodium 133. Potassium 4.6. Creatinine 0.97. AST 63. ALT 212. LDH 894. C-reactive protein 2.1. He remains on Lovenox 40 twice a day him on Decadron, vitamin s upplements. Baricitinib resumed; Continued on Lovenox, Decadron, vitamin supplements Titrate the FiO2 as tolerated Objective - Vital Signs Vital signs: Vital Signs Temp 97.6 F 08/15/21 04:00 Pulse 50 L 08/15/21 11:51 Resp 24 08/15/21 11:51 BP 121/74 08/15/21 11:51 Pulse Ox 96 08/15/21 11:51 Intake & Output 08/14/21 08/15/21 08/15/21 18:59 06:59 18:59 Intake Total 960 118 Output Total 625 200 Balance 960 -625 -82 Weight 86.5 kg Intake: Oral 960 118 Output: Urine 625 200 Other: Voiding Method Bedside Commode Bedside Commode # Voids 1 # Bowel Movements 1 - Exam GENERAL: The patient is alert and oriented x3, not in any acute distress. Morbidly obese. HEENT: Pupils are round and equally reacting to light. EOMI. No scleral icterus. No conjunctival pallor. Normocephalic, atraumatic. No pharyngeal erythema. No thyromegaly. CARDIOVASCULAR: S1 and S2 present. No murmurs, rubs, or gallops. PULMONARY: Bibasilar Rales, improving ABDOMEN: Soft, nontender, nondistended, normoactive bowel sounds. No palpable organomegaly. MUSCULOSKELETAL: No joint swelling or deformity. EXTREMITIES: No cyanosis, clubbing, +1 Pitting edema right ankle. NEUROLOGICAL: Gross neurological examination did not reveal any new focal deficits. SKIN: No rashes. - Labs CBC & Chem 7: 08/17/21 06:45 08/17/21 06:45 Labs: Abnormal Lab Results - Last 24 Hours (Table) 08/14/21 08/14/21 08/15/21 Range/Units 16:26 20:19 06:10 WBC (3.8-10.6) k/uL Plt Count (150-450) k/uL Neutrophils # (1.3-7.7) k/uL Lymphocytes # (1.0-4.8) k/uL D-Dimer (<0.60) mg/L FEU Sodium (137-145) mmol/L Chloride (98-107) mmol/L BUN (9-20) mg/dL Glucose (74-99) mg/dL POC Glucose (mg/dL) 138 H 188 H 138 H (75-99) mg/dL AST (17-59) U/L ALT (4-49) U/L Lactate Dehydrogenase (313-618) U/L C-Reactive Protein (<1.0) mg/dL Total Protein (6.3-8.2) g/dL Albumin (3.5-5.0) g/dL 08/15/21 08/15/21 08/15/21 Range/Units 08:32 08:32 08:32 WBC 22.8 H (3.8-10.6) k/uL Plt Count 559 H (150-450) k/uL Neutrophils # 20.7 H (1.3-7.7) k/uL Lymphocytes # 0.9 L (1.0-4.8) k/uL D-Dimer 1.81 H (<0.60) mg/L FEU Sodium 133 L (137-145) mmol/L Chloride 96 L (98-107) mmol/L BUN 36 H (9-20) mg/dL Glucose 199 H (74-99) mg/dL POC Glucose (mg/dL) (75-99) mg/dL AST 63 H (17-59) U/L ALT 212 H (4-49) U/L Lactate Dehydrogenase 894 H (313-618) U/L C-Reactive Protein 2.1 H (<1.0) mg/dL Total Protein 6.1 L (6.3-8.2) g/dL Albumin 3.0 L (3.5-5.0) g/dL 08/15/21 Range/Units 11:54 WBC (3.8-10.6) k/uL Plt Count (150-450) k/uL Neutrophils # (1.3-7.7) k/uL Lymphocytes # (1.0-4.8) k/uL D-Dimer (<0.60) mg/L FEU Sodium (137-145) mmol/L Chloride (98-107) mmol/L BUN (9-20) mg/dL Glucose (74-99) mg/dL POC Glucose (mg/dL) 127 H (75-99) mg/dL AST (17-59) U/L ALT (4-49) U/L Lactate Dehydrogenase (313-618) U/L C-Reactive Protein (<1.0) mg/dL Total Protein (6.3-8.2) g/dL Albumin (3.5-5.0) g/dL Assessment and Plan Assessment: Assessment and plan -Acute hypoxic respiratory failure secondary to Covid 19 pneumonia, symptoms began about 7 to 10 days prior to admission, he is on 15L NRB and 15L HF NC. 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 -Obesity -Hyperlipidemia -History of NC -Coronary artery disease status post cardiac catheterization DVT prophylaxis: Lovenox GI Prophylaxis: Pepcid Plan IV fluids Hold lisinopril Continue Decadron, covid vitamins, Baricitinib Continue all other supportive care Repeat labs tomorrow Prognosis is guarded for this patient
--- NOTE | 2021-08-17 21:04 | P.PN ---
Subjective Progress Note Date: 08/16/21 Principal diagnosis: COVID-19 viral pneumonia Acute hypoxic respiratory failure Acute non-ST elevation [place] 76-year-old pleasant male came in with complaints of shortness of breath and cough and patient is on 6 L of oxygen and found to have Covid 19 pneumonia chest x-ray is consistent with Covid 19. Patient is bit hyponatremic as well. Patient does have history of diabetes mellitus. Patient vaccinated for Covid 19 patient symptoms has been going on for about a week patient's d-dimer is around 0.7. Patient is presently on Lovenox for DVT prophylaxis. Patient denied any history of COPD or asthma patient last smoked about 52 years ago still has s ignificant wheezing on exam. And has a significant generalized weakness and fatigue 08/13/2021 Patient is seen and evaluated in room at bedside; report some improvement in br eathing and improved, Patient remains on O2 at 15 L via nonrebreather mask and high flow nasal cannu la; did have some increased difficulty breathing at night and required BiPAP Labs reviewed reveals white blood cell count is relatively stable with slight increased at 18.2, hemoglobin is 14.3, last d-dimer was yesterday at 3.49, sodium is 135, the rest of the electrolytes and renal profile were unremarkable, his CRP has improved since admission however his LDH has remained relatively stable in the 900-1000 range. No new chest x-ray today, his last chest x-ray from 08/10/2021 showed moderate sized focal areas of dense lung opacification unchanged in appearance. Continues on Baricitinib, continues on prophylactic Lovenox 40 mg twice daily, Decadron 6 mg twice daily and COVID-19 vitamins cocktail. 08/14/2021 Patient is seen and evaluated; oxygen requirement increased since yesterday and currently on O2 per high flow nasal cannula at 15 L along with 15% Ventimask Vital sign review shows temperature of 98, pulse 66, respiration 20 and blood pressure 144/84 O2 saturation ranging between 84-89% Lab review shows markedly elevated potassium of 6.5, and WBC of 27; patient is currently on 6 mg of Decadron every 12 hours which could be resulting in elevated WBC; patient did receive hyperkalemia treatment cocktail; stat repeat potassium level is ordered and pending We will continue to monitor inflammatory markers and pro-calcitonin and CBC 08/15/2021 Patient is seen and evaluated in follow-up on the selective care unit. Concerns about worsening hypoxemia early this morning and he is now on BiPAP 12/6 and 1 00% FiO2 to maintain O2 saturations in the low 90s. Chest x-ray continues to show bilateral patchy infiltrates left greater than right. He was given IV diuretics yesterday. Yesterday his Baricitinib was discontinued and we were contemplating antibiotics however his pro-calcitonin did come back at 0.05. Baricitinib will be resumed today. White count 22.8. Hemoglobin 15.1. Platelet count 559. Lymphocytes 0.9. D-dimer 1.81. Sodium 133. Potassium 4.6. Creatinine 0.97. AST 63. ALT 212. LDH 894. C-reactive protein 2.1. He remains on Lovenox 40 twice a day him on Decadron, vitamin s upplements. Baricitinib resumed; Continued on Lovenox, Decadron, vitamin supplements Titrate the FiO2 as tolerated 08/16/2021 Patient is seen and evaluated in room at bedside; remains on BiPAP /6 in the 100% FiO2 to maintain O2 saturations in the high 80s low 90s. Vital signs are reviewed and reveal temperature of 97.5, pulse 56, respiration 35 and blood pressure 144/75 Chest x-ray continues to show bilateral patchy infiltrates left greater than right. Blood cultures reveal no growth. Urine culture revealed no growth. White count remains high at 25.8. Pro-calcitonin 0.05. He was resumed back on Baricitinib yesterday. Continues on Decadron, Lovenox, vitamin supplements. Hemoglobin 15.8. Platelets 558. Sodium 134. Potassium 5.2. Creatinine 0.95. AST 45. ALT 161. Objective - Vital Signs Vital signs: Vital Signs Temp 97.5 F L 08/16/21 11:59 Pulse 56 L 08/16/21 11:59 Resp 35 H 08/16/21 11:59 BP 144/75 08/16/21 11:59 Pulse Ox 95 08/16/21 11:59 Intake & Output 08/15/21 08/16/21 08/16/21 18:59 06:59 18:59 Intake Total 478 250 Output Total 200 300 350 Balance 278 -300 -100 Weight 75 kg Intake: IV 10 Invasive Line 3 10 Oral 478 240 Output: Urine 200 300 350 Other: Voiding Method Bedside Commode Urinal # Voids 1 - Exam GENERAL: The patient is alert and oriented x3, not in any acute distress. Morbidly obese. HEENT: Pupils are round and equally reacting to light. EOMI. No scleral icterus. No conjunctival pallor. Normocephalic, atraumatic. No pharyngeal erythema. No thyromegaly. CARDIOVASCULAR: S1 and S2 present. No murmurs, rubs, or gallops. PULMONARY: Bibasilar Rales, improving ABDOMEN: Soft, nontender, nondistended, normoactive bowel sounds. No palpable organomegaly. MUSCULOSKELETAL: No joint swelling or deformity. EXTREMITIES: No cyanosis, clubbing, +1 Pitting edema right ankle. NEUROLOGICAL: Gross neurological examination did not reveal any new focal deficits. SKIN: No rashes. - Labs CBC & Chem 7: 08/17/21 06:45 08/17/21 06:45 Labs: Abnormal Lab Results - Last 24 Hours (Table) 08/15/21 08/15/21 08/16/21 Range/Units 16:54 20:17 06:05 WBC (3.8-10.6) k/uL Plt Count (150-450) k/uL Neutrophils # (1.3-7.7) k/uL Monocytes # (0-1.0) k/uL Sodium (137-145) mmol/L Potassium (3.5-5.1) mmol/L Chloride (98-107) mmol/L BUN (9-20) mg/dL Glucose (74-99) mg/dL POC Glucose (mg/dL) 143 H 248 H 142 H (75-99) mg/dL ALT (4-49) U/L Albumin (3.5-5.0) g/dL 08/16/21 08/16/21 08/16/21 Range/Units 08:14 08:14 12:02 WBC 25.8 H (3.8-10.6) k/uL Plt Count 558 H (150-450) k/uL Neutrophils # 23.5 H (1.3-7.7) k/uL Monocytes # 1.1 H (0-1.0) k/uL Sodium 134 L (137-145) mmol/L Potassium 5.2 H (3.5-5.1) mmol/L Chloride 97 L (98-107) mmol/L BUN 32 H (9-20) mg/dL Glucose 181 H (74-99) mg/dL POC Glucose (mg/dL) 163 H (75-99) mg/dL ALT 161 H (4-49) U/L Albumin 3.1 L (3.5-5.0) g/dL Assessment and Plan Assessment: Assessment and plan -Acute hypoxic respiratory failure secondary to Covid 19 pneumonia, symptoms began about 7 to 10 days prior to admission, he is on 15L NRB and 15L HF NC. 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 -Obesity -Hyperlipidemia -History of [place] -Coronary artery disease status post cardiac catheterization DVT prophylaxis: Lovenox GI Prophylaxis: Pepcid Plan IV fluids Hold lisinopril Continue Decadron, covid vitamins, Baricitinib Continue all other supportive care Repeat labs tomorrow Prognosis is guarded for this patient
[2021-08-17] MEDS: fentaNYL (PF). 1,000 MCG in SODIUM CHLORIDE 0.9% 80 ML IV SCH (21:07)
--- NOTE | 2021-08-17 21:08 | P.PN ---
Subjective Progress Note Date: 08/17/21 Principal diagnosis: COVID-19 viral pneumonia Acute hypoxic respiratory failure Acute non-ST elevation [place] 76-year-old pleasant male came in with complaints of shortness of breath and cough and patient is on 6 L of oxygen and found to have Covid 19 pneumonia chest x-ray is consistent with Covid 19. Patient is bit hyponatremic as well. Patient does have history of diabetes mellitus. Patient vaccinated for Covid 19 patient symptoms has been going on for about a week patient's d-dimer is around 0.7. Patient is presently on Lovenox for DVT prophylaxis. Patient denied any history of COPD or asthma patient last smoked about 52 years ago still has s ignificant wheezing on exam. And has a significant generalized weakness and fatigue 08/13/2021 Patient is seen and evaluated in room at bedside; report some improvement in br eathing and improved, Patient remains on O2 at 15 L via nonrebreather mask and high flow nasal cannu la; did have some increased difficulty breathing at night and required BiPAP Labs reviewed reveals white blood cell count is relatively stable with slight increased at 18.2, hemoglobin is 14.3, last d-dimer was yesterday at 3.49, sodium is 135, the rest of the electrolytes and renal profile were unremarkable, his CRP has improved since admission however his LDH has remained relatively stable in the 900-1000 range. No new chest x-ray today, his last chest x-ray from 08/10/2021 showed moderate sized focal areas of dense lung opacification unchanged in appearance. Continues on Baricitinib, continues on prophylactic Lovenox 40 mg twice daily, Decadron 6 mg twice daily and COVID-19 vitamins cocktail. 08/14/2021 Patient is seen and evaluated; oxygen requirement increased since yesterday and currently on O2 per high flow nasal cannula at 15 L along with 15% Ventimask Vital sign review shows temperature of 98, pulse 66, respiration 20 and blood pressure 144/84 O2 saturation ranging between 84-89% Lab review shows markedly elevated potassium of 6.5, and WBC of 27; patient is currently on 6 mg of Decadron every 12 hours which could be resulting in elevated WBC; patient did receive hyperkalemia treatment cocktail; stat repeat potassium level is ordered and pending We will continue to monitor inflammatory markers and pro-calcitonin and CBC 08/15/2021 Patient is seen and evaluated in follow-up on the selective care unit. Concerns about worsening hypoxemia early this morning and he is now on BiPAP 12/6 and 1 00% FiO2 to maintain O2 saturations in the low 90s. Chest x-ray continues to show bilateral patchy infiltrates left greater than right. He was given IV diuretics yesterday. Yesterday his Baricitinib was discontinued and we were contemplating antibiotics however his pro-calcitonin did come back at 0.05. Baricitinib will be resumed today. White count 22.8. Hemoglobin 15.1. Platelet count 559. Lymphocytes 0.9. D-dimer 1.81. Sodium 133. Potassium 4.6. Creatinine 0.97. AST 63. ALT 212. LDH 894. C-reactive protein 2.1. He remains on Lovenox 40 twice a day him on Decadron, vitamin s upplements. Baricitinib resumed; Continued on Lovenox, Decadron, vitamin supplements Titrate the FiO2 as tolerated 08/16/2021 Patient is seen and evaluated in room at bedside; remains on BiPAP 12/6 in the 100% FiO2 to maintain O2 saturations in the high 80s low 90s. Vital signs are reviewed and reveal temperature of 97.5, pulse 56, respiration 35 and blood pressure 144/75 Chest x-ray continues to show bilateral patchy infiltrates left greater than right. Blood cultures reveal no growth. Urine culture revealed no growth. White count remains high at 25.8. Pro-calcitonin 0.05. He was resumed back on Baricitinib yesterday. Continues on Decadron, Lovenox, vitamin supplements. Hemoglobin 15.8. Platelets 558. Sodium 134. Potassium 5.2. Creatinine 0.95. AST 45. ALT 161. 08/17/2021 patient is seen and evaluated in follow-up on selective care unit. Patient has been on BiPAP support last night, and was switched to 15 L high flow and nonrebreather mask this morning, his pulse ox is 93%. Vital signs are reviewed and reveal temperature of 97.8, pulse 58, respiration 28 and blood pressure 144/74 Labs review show WBC of 22.6, hemoglobin 14.2, sodium 133, potassium 5.8, BUN/creatinine of 30/0.82 Patient remains on Baricitinib, Decadron 6 blood gram twice daily, and Lovenox 40 mg twice daily. He received a dose of IV Lasix yesterday, and he has diuresed 1.1 L in urine output, breathing a bit easier. We'll continue Baricitinib; Continue Decadron at 6 mg twice daily; Continue prophylactic Lovenox at 40 mg twice daily Objective - Vital Signs Vital signs: Vital Signs Temp 99.2 F 08/17/21 20:00 Pulse 118 H 08/17/21 20:00 Resp 58 H 08/17/21 20:00 BP 163/97 08/17/21 20:00 Pulse Ox 87 L 08/17/21 20:00 Intake & Output 08/17/21 08/17/21 08/18/21 06:59 18:59 06:59 Intake Total 270 960 Output Total 400 1051 Balance -130 -91 Weight 90 kg Intake: IV 10 Invasive Line 4 10 Intake, IV Titration 600 Amount Sodium Chloride 0.9% 1, 600 000 ml @ 50 mls/hr IV . Q20H STEPHIE Rx#:[id number] Oral 260 360 Output: Urine 400 1050 Stool 1 Other: Voiding Method Urinal Urinal # Voids 1 # Bowel Movements 1 - Exam GENERAL: The patient is alert and oriented x3, not in any acute distress. Morbidly obese. HEENT: Pupils are round and equally reacting to light. EOMI. No scleral icterus. No conjunctival pallor. Normocephalic, atraumatic. No pharyngeal erythema. No thyromegaly. CARDIOVASCULAR: S1 and S2 present. No murmurs, rubs, or gallops. PULMONARY: Bibasilar Rales, improving ABDOMEN: Soft, nontender, nondistended, normoactive bowel sounds. No palpable organomegaly. MUSCULOSKELETAL: No joint swelling or deformity. EXTREMITIES: No cyanosis, clubbing, +1 Pitting edema right ankle. NEUROLOGICAL: Gross neurological examination did not reveal any new focal deficits. SKIN: No rashes. - Labs CBC & Chem 7: 08/17/21 06:45 08/17/21 06:45 Labs: Abnormal Lab Results - Last 24 Hours (Table) 08/17/21 08/17/21 08/17/21 Range/Units 06:05 06:45 06:45 WBC 22.6 H (3.8-10.6) k/uL Plt Count 452 H (150-450) k/uL Neutrophils # 20.6 H (1.3-7.7) k/uL Lymphocytes # 0.7 L (1.0-4.8) k/uL Monocytes # 1.1 H (0-1.0) k/uL ABG pO2 (83-108) mmHg ABG HCO3 (21-25) mmol/L ABG Total CO2 (19-24) mmol/L ABG O2 Saturation (94-97) % Sodium 133 L (137-145) mmol/L Potassium 5.8 H (3.5-5.1) mmol/L BUN 30 H (9-20) mg/dL Glucose 132 H (74-99) mg/dL POC Glucose (mg/dL) 159 H (75-99) mg/dL ALT 134 H (4-49) U/L Total Protein 5.7 L (6.3-8.2) g/dL Albumin 2.7 L (3.5-5.0) g/dL 08/17/21 08/17/21 08/17/21 Range/Units 11:41 16:58 19:55 WBC (3.8-10.6) k/uL Plt Count (150-450) k/uL Neutrophils # (1.3-7.7) k/uL Lymphocytes # (1.0-4.8) k/uL Monocytes # (0-1.0) k/uL ABG pO2 54 L* (83-108) mmHg ABG HCO3 28 H (21-25) mmol/L ABG Total CO2 29 H (19-24) mmol/L ABG O2 Saturation 88.6 L (94-97) % Sodium (137-145) mmol/L Potassium (3.5-5.1) mmol/L BUN (9-20) mg/dL Glucose (74-99) mg/dL POC Glucose (mg/dL) 229 H 177 H (75-99) mg/dL ALT (4-49) U/L Total Protein (6.3-8.2) g/dL Albumin (3.5-5.0) g/dL 08/17/21 Range/Units 20:04 WBC (3.8-10.6) k/uL Plt Count (150-450) k/uL Neutrophils # (1.3-7.7) k/uL Lymphocytes # (1.0-4.8) k/uL Monocytes # (0-1.0) k/uL ABG pO2 (83-108) mmHg ABG HCO3 (21-25) mmol/L ABG Total CO2 (19-24) mmol/L ABG O2 Saturation (94-97) % Sodium (137-145) mmol/L Potassium (3.5-5.1) mmol/L BUN (9-20) mg/dL Glucose (74-99) mg/dL POC Glucose (mg/dL) 206 H (75-99) mg/dL ALT (4-49) U/L Total Protein (6.3-8.2) g/dL Albumin (3.5-5.0) g/dL Assessment and Plan Assessment: Assessment and plan -Acute hypoxic respiratory failure secondary to Covid 19 pneumonia, symptoms began about 7 to 10 days prior to admission, he is on 15L NRB and 15L HF NC. 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 -Obesity -Hyperlipidemia -History of [place] -Coronary artery disease status post cardiac catheterization DVT prophylaxis: Lovenox GI Prophylaxis: Pepcid Plan IV fluids Hold lisinopril Continue Decadron, covid vitamins, Baricitinib Continue all other supportive care Repeat labs tomorrow Prognosis is guarded for this patient
[2021-08-17 21:23] LABS: ABG Base Excess 1.9 mmol/L; ABG HCO3 29 mmol/L (21-25); ABG Oxygen Saturation 92.6 % (94-97); ABG PCO2 59 mmHg (35-45); ABG PH 7.29 (7.35-7.45); ABG PO2 76 mmHg (83-108); ABG TCO2 30 mmol/L (19-24); Allen Test Performed? Yes
[2021-08-17] MEDS ORDERED: FUROSEMIDE 10 MG/ML 4 ML VIAL IV STA (21:32)
--- NOTE | 2021-08-17 21:34 | XR ---
EXAMINATION TYPE: XR chest 1V portable DATE OF EXAM: 08/17/2021 COMPARISON: Today HISTORY: Check tube placement TECHNIQUE: FINDINGS: Endotracheal tube is 4.5 cm from the susie. There is nasogastric tube looped in the stomac h. There is extensive bilateral pulmonary infiltrates. Heart size is normal. IMPRESSION: Bilateral pulmonary infiltrates consistent with RDS and not changed compared to exam one hour ago.
[2021-08-17] MEDS ORDERED: CISATRACURIUM 2 MG/ML 5 ML VIAL IV ONE (21:42)
[2021-08-17] MEDS ORDERED: CISATRACURIUM 200 MG in SODIUM CHLORIDE 0.9% 180 ML IV SCH (21:45)
[2021-08-17 22:19] LABS: Glucose,Whole Blood 129 mg/dL (75-99)
[2021-08-17] MEDS: CHLORHEXIDINE GLUCONATE 15 ML CUP MUCOUS MEM SCH (22:24)
[2021-08-17] MEDS: ATORVASTATIN 40 MG TAB PO SCH (22:25)
[2021-08-18] MEDS: fentaNYL (PF). 1,000 MCG in SODIUM CHLORIDE 0.9% 80 ML IV SCH (01:38)
[2021-08-18] MEDS: ARTIFICIAL TEARS-HYPROMELLOSE DROPS 15 ML BTL BOTH EYES SCH ×6 (02:10→21:58)
[2021-08-18 04:34] LABS: Basophils # (A) 0.1 k/uL (0-0.2); Basophils % (A) 0 %; Eosinophils % (A) 0 %; HCT 51.3 % (39.0-53.0); HGB 16.3 gm/dL (13.0-17.5); Hypochromasia Slight; Lymphocytes # (A) 0.4 k/uL (1.0-4.8); Lymphocytes % (A) 1 %; MCH 30.3 pg (25.0-35.0); MCHC 31.9 g/dL (31.0-37.0); MCV 95.2 fL (80.0-100.0); Mean Platelet Volume 8.1; Monocytes # (A) 2.1 k/uL (0-1.0); Monocytes % (A) 3 %; Neutrophils # (A) 64.7 k/uL (1.3-7.7); Neutrophils % (A) 96 %; Platelet Count 596 k/uL (150-450); RBC 5.39 m/uL (4.30-5.90); RDW 13.4 % (11.5-15.5)
[2021-08-18 04:35] LABS: Albumin 3.2 g/dL (3.5-5.0); Total Bilirubin 1.1 mg/dL (0.2-1.3); Total Protein 6.6 g/dL (6.3-8.2)
[2021-08-18 04:49] LABS: WBC 67.6 k/uL (3.8-10.6)
[2021-08-18 05:39] LABS: ABG Base Excess -0.2 mmol/L; ABG HCO3 29 mmol/L (21-25); ABG Oxygen Saturation 80.4 % (94-97); ABG TCO2 32 mmol/L (19-24); Allen Test Performed? Yes
[2021-08-18 05:43] LABS: ABG PCO2 93 mmHg (35-45); ABG PH 7.11 (7.35-7.45); ABG PO2 58 mmHg (83-108)
[2021-08-18] MEDS ORDERED: SODIUM BICARB 8.4% 50 ML SYR (1 MEQ/ML) IV STA (05:51)
[2021-08-18] MEDS ORDERED: DEXTROSE 5% IN WATER 1,000 ML with SODIUM BICARB (1 MEQ/ML) 150 ML IV SCH (06:15)
[2021-08-18 06:21] LABS: Glucose,Whole Blood 276 mg/dL (75-99)
[2021-08-18] MEDS: INSULIN ASPART (NovoLOG) 100 UNIT/ML VIAL SQ SCH (06:27)
[2021-08-18] MEDS: ALBUTEROL HFA INHALER INHALATION PRN (07:42)
--- NOTE | 2021-08-18 07:58 | XR ---
EXAMINATION TYPE: XR chest 1V portable DATE OF EXAM: 08/18/2021 COMPARISON: 08/17/2021 INDICATION: Tube placement TECHNIQUE: Single frontal view of the chest is obtained. FINDINGS: The heart size is normal. The pulmonary vasculature is normal. There is consolidation or pleural plaque along the periphery of the right mid lung. Right lower lobe consolidation is present. Some peripheral left perihilar infiltrate is present. Left lower lobe infil trate may be improving. Nasogastric tube is present with the tip in the left upper quadrant of the abdomen. Endotracheal tube tip is above the susie. IMPRESSION: 1. Stable bilateral lung infiltrates. Correlate for atypical pneumonia. 2. Lines and catheters discussed above.
[2021-08-18] MEDS: ASCORBIC ACID 500 MG TAB PO SCH (08:01)
[2021-08-18] MEDS: ASPIRIN 81 MG PO SCH (08:01)
[2021-08-18] MEDS: CHLORHEXIDINE GLUCONATE 15 ML CUP MUCOUS MEM SCH (08:01)
[2021-08-18] MEDS: ENOXAPARIN 40 MG/0.4 ML SYRINGE SQ SCH (08:01)
[2021-08-18] MEDS: DEXAMETHASONE SOD PHOSPHATE 10 MG/ML 1 ML VIAL IVP SCH (08:01)
[2021-08-18] MEDS: ZINC SULFATE 220 MG CAP PO SCH (08:02)
[2021-08-18] MEDS: METOPROLOL TARTRATE 50 MG TAB PO SCH (08:02)
[2021-08-18] MEDS ORDERED: MORPHINE SULFATE 4 MG/ML SYRINGE IV PRN (08:39)
[2021-08-18] MEDS ORDERED: MORPHINE SULFATE 2 MG/ML SYRINGE IV PRN (08:39)
[2021-08-18] MEDS ORDERED: ATROPINE OPHTH SOLN 1% 5ML BTL SUBLINGUAL PRN (08:39)
[2021-08-18] MEDS ORDERED: PANTOPRAZOLE 40 MG/10 ML VIAL IV SCH (09:00)
[2021-08-18] MEDS ORDERED: SCOPOLAMINE 1.5MG/72HR PATCH TRANSDERM SCH (09:00)
[2021-08-18] MEDS ORDERED: MORPHINE SULFATE (100 MG/2 ML) 100 MG in SODIUM CHLORIDE 0.9% 100 ML IV SCH (09:30)
[2021-08-18 11:12] VITALS: BP 75/48; TEMP 97.7
--- NOTE | 2021-08-18 14:36 | P.PN ---
Subjective Progress Note Date: 08/18/21 This is a 76-year-old male who came in and was recently admitted for shortness of breath and cough requiring 6 L of oxygen and found to have COVID-19 pneumonia and is currently in the ICU being closely monitored. Patient was maintained on high flow nasal cannula along with nonrebreather and [place] Bi[place]AP at 100% and respirations and respiratory status continued to decline and patient was intubated. Discussion was had with the family and son at the bedside and had a long discussion with pulmonary and patient was made comfort care and extubated and currently maintained on 5 L. Patient is unresponsive and has been placed on a morphine drip. Oxygen satu ration currently 79-82% on 5 L nasal cannula. WBC this morning 67.6 with a hemoglobin of 16.3 and platelets are 596. ABG revealed a pH of 7.11 with a pCO2 of 93 and a pO2 of 58 bicarbs 29 and oxygen saturation is 80%. Sodium is 133 with a potassium of 6.4, BUN is 35 and creatinine is 1.11. review of systems: Unable to obtain as patient is obtunded and unresponsive Active Medications Acetaminophen (Acetaminophen Tab 325 Mg Tab) 650 mg PO Q6HR PRN PRN Reason: Fever and/ or Pain Last Admin: 08/12/21 03:37 Dose: 650 mg Documented by: Albuterol Sulfate (Albuterol Hfa Inhaler) 2 puff INHALATION RT-Q4H PRN PRN Reason: Shortness Of Breath Or Wheezing Last Admin: 08/18/21 07:42 Dose: 2 puff Documented by: Alprazolam (Alprazolam 0.25 Mg Tab) 0.25 mg PO TID PRN PRN Reason: Anxiety Last Admin: 08/17/21 18:31 Dose: 0.25 mg Documented by: Artificial Tears (Artificial Tears-Hypromellose Drops 15 Ml Btl) 2 drops BOTH EYES Q4HR [facility] Last Admin: 08/18/21 08:42 Dose: 2 drops Documented by: Ascorbic Acid (Ascorbic Acid 500 Mg Tab) 500 mg PO BID [facility] Last Admin: 08/18/21 08:01 Dose: 500 mg Documented by: Aspirin (Aspirin 81 Mg) 81 mg PO DAILY [facility] Last Admin: 08/18/21 08:01 Dose: 81 mg Documented by: Atorvastatin Calcium (Atorvastatin 40 Mg Tab) 40 mg PO HS [facility] Last Admin: 08/17/21 22:25 Dose: 40 mg Documented by: Atropine Sulfate (Atropine Ophth Soln 1% 5ml Btl) 2 drops SUBLINGUAL Q4HR PRN PRN Reason: Excess Secretions Last Admin: 08/18/21 10:15 Dose: 2 drops Documented by: Baricitinib (Baricitinib 2 Mg Tablet) 4 mg PO DAILY@1600 [facility] Stop: 08/21/21 16:01 Last Admin: 08/17/21 15:43 Dose: 4 mg Documented by: Chlorhexidine Gluconate (Chlorhexidine Gluconate 15 Ml Cup) 15 ml MUCOUS MEM BID [facility] Last Admin: 08/18/21 08:01 Dose: 15 ml Documented by: Cholecalciferol (Cholecalciferol 125 Mcg (5000 Iu) Tablet) 125 mcg PO DAILY [facility] Last Admin: 08/17/21 08:15 Dose: 125 mcg Documented by: Dexamethasone Sodium Phosphate (Dexamethasone Sod Phosphate 10 Mg/Ml 1 Ml Vial) 6 mg IVP BID [facility] Last Admin: 08/18/21 08:01 Dose: 6 mg Documented by: Enoxaparin Sodium (Enoxaparin 40 Mg/0.4 Ml Syringe) 40 mg SQ BID [facility] Last Admin: 08/18/21 08:01 Dose: 40 mg Documented by: Guaifenesin/Dextromethorphan (Guaifenesin-Dm 600/30mg 1 Each Tab.Er.12h) 2 each PO Q12HR PRN PRN Reason: Cough Last Admin: 08/14/21 15:44 Dose: 2 each Documented by: Sodium Chloride (Saline 0.9%) 1,000 mls @ 50 mls/hr IV .Q20H [facility] Last Admin: 08/17/21 12:19 Dose: 50 mls/hr Documented by: Propofol 1,000 mg/ IV Solution 100 mls @ 0 mls/hr IV .Q0M [facility]; Protocol Last Admin: 08/18/21 08:43 Dose: 50 mcg/kg/min, 27 mls/hr Documented by: Fentanyl Citrate 1,000 mcg/ (Sodium Chloride) 100 mls @ 9 mls/hr IV .Q11H7M [facility]; Protocol Last Admin: 08/18/21 01:38 Dose: 1 mcg/kg/hr, 9 mls/hr Documented by: Cisatracurium Besylate 200 mg/ (Sodium Chloride) 200 mls @ 5.4 mls/hr IV .Q24H [facility]; Protocol Last Titration: 08/17/21 22:56 Dose: 2 mcg/kg/min, 10.8 mls/hr Documented by: Sodium Bicarbonate 150 ml/ (Dextrose/Water) 1,150 mls @ 100 mls/hr IV .[id number] [facility] Last Admin: 08/18/21 06:53 Dose: 100 mls/hr Documented by: Morphine Sulfate 100 mg/ (Sodium Chloride) 102 mls @ 1.02 mls/hr IV .Q24H [facility]; Protocol Last Admin: 08/18/21 10:16 Dose: 1 mg/hr, 1.02 mls/hr Documented by: Insulin Aspart (Insulin Aspart (Novolog) 100 Unit/Ml Vial) 0 unit SQ Q6HR [facility]; Protocol Last Admin: 08/18/21 06:27 Dose: 5 unit Documented by: Metoprolol Tartrate (Metoprolol Tartrate 50 Mg Tab) 100 mg PO BID [facility] Last Admin: 08/18/21 08:02 Dose: 100 mg Documented by: Miscellaneous Information (Pneumonia Protocol Utilized 1 Each Misc) 1 each PO ONCE PRN PRN Reason: Per Protocol Morphine Sulfate (Morphine Sulfate 4 Mg/Ml Syringe) 4 mg IV Q15M PRN PRN Reason: Severe Breakthrough Pain Last Admin: 08/18/21 10:15 Dose: 4 mg Documented by: Morphine Sulfate (Morphine Sulfate 2 Mg/Ml Syringe) 2 mg IV Q15M PRN PRN Reason: Moderate Breakthrough Pain Pantoprazole Sodium (Pantoprazole 40 Mg/10 Ml Vial) 40 mg IV DAILY [facility] Last Admin: 08/18/21 08:01 Dose: 40 mg Documented by: Scopolamine (Scopolamine 1.5mg/72hr Patch) 1 patch TRANSDERM Q72H [facility] Last Admin: 08/18/21 10:16 Dose: 1 patch Documented by: Zinc Sulfate (Zinc Sulfate 220 Mg Cap) 220 mg PO DAILY [facility] Last Admin: 08/18/21 08:02 Dose: 220 mg Documented by: Physical exam: GENERAL: The patient is unresponsive. Currently on morphine drip. Pulse is 90, respirations are 34, blood pressure 75/48, oxygen saturation is 86% on 5 L nasal cannula HEENT: Pupils are pinpoint. EOMI. No scleral icterus. No conjunctival pallor. Normocephalic, atraumatic. No pharyngeal erythema. No thyromegaly. CARDIOVASCULAR: S1 and S2 muffled PULMONARY: Bibasilar Rales and rhonchi scattered noted throughout ABDOMEN: Soft, nontender, nondistended, normoactive bowel sounds. No palpable organomegaly. MUSCULOSKELETAL: No joint swelling or deformity. EXTREMITIES: No cyanosis, clubbing, +1 Pitting edema right ankle. NEUROLOGICAL: Unresponsive, unable to assess completely SKIN: No rashes. 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 Patient's respiratory status continued to decline and patient was maintained on dexamethasone along with vitamin and zinc supplements and Lovenox with no improvement. Family has opted to make the patient comfort care measures only and patient was extubated and currently low 70s to 80s on 5 L nasal cannula and is on morphine drip. Continue with comfort measures only and prognosis remains extremely poor and guarded. Son at the bedside and questions and concerns were answered. Objective - Vital Signs Vital signs: Vital Signs Temp 97.3 F L 08/18/21 04:00 Pulse 95 08/18/21 07:00 Resp 34 H 08/18/21 07:00 BP 97/67 08/18/21 07:00 Pulse Ox 81 L 08/18/21 07:00 Intake & Output 08/17/21 08/18/21 08/18/21 18:59 06:59 18:59 Intake Total 960 1164.41 200 Output Total 1051 820 30 Balance -91 344.41 170 Weight 90.4 kg Intake: IV 1000 100 Sodium Chloride 0.9% 1, 1000 100 000 ml @ 100 mls/hr IV . Q10H [facility] Rx#:[id number] Intake, IV Titration 600 164.41 100 Amount Cisatracurium 200 mg In 4.86 Sodium Chloride 0.9% 180 ml @ 1 MCG/KG/MIN 5.4 mls /hr IV .Q24H [facility] Rx#: [id number] Sodium Chloride 0.9% 1, 600 000 ml @ 50 mls/hr IV . Q20H [facility] Rx#:[id number] fentaNYL (PF). 1,000 mcg 40.65 In Sodium Chloride 0.9% 80 ml @ 1 MCG/KG/HR 9 mls /hr IV .Q11H7M [facility] Rx#: [id number] propofoL 1,000 mg In 118.9 100 Empty Bag 1 bag @ Titrate IV .Q0M [facility] Rx#: [id number] Oral 360 Output: Urine 1050 820 30 Stool 1 Other: Voiding Method Urinal Indwelling Catheter # Voids 1 # Bowel Movements 1 - Labs CBC & Chem 7: 08/18/21 03:43 08/18/21 06:52 Labs: Abnormal Lab Results - Last 24 Hours (Table) 08/17/21 08/17/21 08/17/21 Range/Units 11:41 16:58 19:55 WBC (3.8-10.6) k/uL Plt Count (150-450) k/uL Neutrophils # (1.3-7.7) k/uL Lymphocytes # (1.0-4.8) k/uL Monocytes # (0-1.0) k/uL ABG pH (7.35-7.45) ABG pCO2 (35-45) mmHg ABG pO2 54 L* (83-108) mmHg ABG HCO3 28 H (21-25) mmol/L ABG Total CO2 29 H (19-24) mmol/L ABG O2 Saturation 88.6 L (94-97) % Sodium (137-145) mmol/L Potassium (3.5-5.1) mmol/L Carbon Dioxide (22-30) mmol/L BUN (9-20) mg/dL Glucose (74-99) mg/dL POC Glucose (mg/dL) 229 H 177 H (75-99) mg/dL AST (17-59) U/L ALT (4-49) U/L Alkaline Phosphatase (38-126) U/L Albumin (3.5-5.0) g/dL 08/17/21 08/17/21 08/17/21 Range/Units 20:04 21:21 22:17 WBC (3.8-10.6) k/uL Plt Count (150-450) k/uL Neutrophils # (1.3-7.7) k/uL Lymphocytes # (1.0-4.8) k/uL Monocytes # (0-1.0) k/uL ABG pH 7.29 L (7.35-7.45) ABG pCO2 59 H (35-45) mmHg ABG pO2 76 L (83-108) mmHg ABG HCO3 29 H (21-25) mmol/L ABG Total CO2 30 H (19-24) mmol/L ABG O2 Saturation 92.6 L (94-97) % Sodium (137-145) mmol/L Potassium (3.5-5.1) mmol/L Carbon Dioxide (22-30) mmol/L BUN (9-20) mg/dL Glucose (74-99) mg/dL POC Glucose (mg/dL) 206 H 129 H (75-99) mg/dL AST (17-59) U/L ALT (4-49) U/L Alkaline Phosphatase (38-126) U/L Albumin (3.5-5.0) g/dL 08/18/21 08/18/21 08/18/21 Range/Units 03:43 03:43 05:34 WBC 67.6 H* (3.8-10.6) k/uL Plt Count 596 H (150-450) k/uL Neutrophils # 64.7 H (1.3-7.7) k/uL Lymphocytes # 0.4 L (1.0-4.8) k/uL Monocytes # 2.1 H (0-1.0) k/uL ABG pH 7.11 L* (7.35-7.45) ABG pCO2 93 H* (35-45) mmHg ABG pO2 58 L* (83-108) mmHg ABG HCO3 29 H (21-25) mmol/L ABG Total CO2 32 H (19-24) mmol/L ABG O2 Saturation 80.4 L (94-97) % Sodium 133 L (137-145) mmol/L Potassium (3.5-5.1) mmol/L Carbon Dioxide 18 L (22-30) mmol/L BUN 35 H (9-20) mg/dL Glucose 200 H (74-99) mg/dL POC Glucose (mg/dL) (75-99) mg/dL AST 115 H (17-59) U/L ALT 169 H (4-49) U/L Alkaline Phosphatase 135 H (38-126) U/L Albumin 3.2 L (3.5-5.0) g/dL 08/18/21 08/18/21 Range/Units 06:19 06:52 WBC (3.8-10.6) k/uL Plt Count (150-450) k/uL Neutrophils # (1.3-7.7) k/uL Lymphocytes # (1.0-4.8) k/uL Monocytes # (0-1.0) k/uL ABG pH (7.35-7.45) ABG pCO2 (35-45) mmHg ABG pO2 (83-108) mmHg ABG HCO3 (21-25) mmol/L ABG Total CO2 (19-24) mmol/L ABG O2 Saturation (94-97) % Sodium (137-145) mmol/L Potassium 6.4 H* (3.5-5.1) mmol/L Carbon Dioxide (22-30) mmol/L BUN (9-20) mg/dL Glucose (74-99) mg/dL POC Glucose (mg/dL) 276 H (75-99) mg/dL AST (17-59) U/L ALT (4-49) U/L Alkaline Phosphatase (38-126) U/L Albumin (3.5-5.0) g/dL
[2021-08-18] MEDS: SODIUM CHLORIDE 0.9% 1,000 ML IV SCH (15:37)
[2021-08-18 16:29] VITALS: PULSE 104
[2021-08-19] MEDS: ARTIFICIAL TEARS-HYPROMELLOSE DROPS 15 ML BTL BOTH EYES SCH ×2 (02:35→04:06)
[2021-08-19] MEDS: CHOLECALCIFEROL 125 MCG (5000 IU) TABLET PO SCH (02:38)
[2021-08-19] MEDS: INSULIN ASPART (NovoLOG) 100 UNIT/ML VIAL SQ SCH (02:38)
[2021-08-19 05:07] VITALS: RESP 18
--- NOTE | 2021-08-19 15:31 | P.DS ---
Providers Date of admission: 08/04/21 22:49 Expected date of discharge: 08/19/21 Attending physician: Camacho Del Cid Consults: 08/04/21 22:48 Consult Physician Routine Consulting Provider: Delgado Sands Consult Reason/Comments: COVID-19 pneumonia. 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 Patient was on comfort measures per family request after being extubated yesterday morning. Hospital course This is a 76-year-old male who was recently admitted with shortness of breath and found to have COVID-19 pneumonia and was briefly in the ICU and intubated and respiratory status continued to decline and family had opted for comfort measures and patient was extubated on 08/18/2021 and placed on morphine drip along with nasal cannula with son at the bedside. Patient was maintained on morphine drip and at 0337 this morning. Please refer to previous dictations for further HPI. Patient Condition at Discharge: Poor Plan - Discharge Summary Discharge Rx Participant: Yes New Discharge Prescriptions: No Action metFORMIN HCL [Glucophage] 500 mg PO BID Metoprolol Tartrate [Lopressor] 100 mg PO BID Aspirin EC [Ecotrin Low Dose] 81 mg PO DAILY lisinopriL [Zestril] 10 mg PO DAILY Atorvastatin Calcium [Lipitor] 40 mg PO HS Discharge Medication List Aspirin EC [Ecotrin Low Dose] 81 mg PO DAILY 11/28/18 [History] Metoprolol Tartrate [Lopressor] 100 mg PO BID 11/28/18 [History] metFORMIN HCL [Glucophage] 500 mg PO BID 11/28/18 [History] Atorvastatin Calcium [Lipitor] 40 mg PO HS 08/04/21 [History] lisinopriL [Zestril] 10 mg PO DAILY 08/04/21 [History] Follow up Appointment(s)/Referral(s): David Mcpherson MD [Primary Care Provider] - 1-2 days Patient Instructions/Handouts: Coronavirus Disease 2019 (COVID-19) Activity/Diet/Wound Care/Special Instructions: Check into [facility] for help with prescriptions. [facility] Discharge Disposition: - Preliminary Cause of Preliminary Cause of : COVID-19 pneumonia
== END 2021-08-19 03:37 | disposition expired | DRG 208 ==
LOC: EC 21:02 → 3SCARD 22:49 → 2SICU 08-17 20:26 → 4SSUR 08-18 17:38
PROVIDERS: ADMIT Hospitalist; ATTEND Hospitalist
PROC: 3E0333Z Introduction of Anti-inflammatory into Peripheral Vein, Percutaneous Approach (ICD-10-PCS; 2021-08-05)
PROC: XW0DXM6 Introduction of Baricitinib into Mouth and Pharynx, External Approach, New Technology Group 6 (ICD-10-PCS; 2021-08-08)
PROC: 5A0955A Assistance with Respiratory Ventilation, Greater than 96 Consecutive Hours, High Flow/Velocity Cannula (ICD-10-PCS; 2021-08-10)
PROC: 5A1935Z Respiratory Ventilation, Less than 24 Consecutive Hours (ICD-10-PCS; principal; 2021-08-18)
PROC: 0BH17EZ Insertion of Endotracheal Airway into Trachea, Via Natural or Artificial Opening (ICD-10-PCS; 2021-08-18)
DX: U07.1 COVID-19 (principal); I21.4 Non-ST elevation (NSTEMI) myocardial infarction; J12.82 Pneumonia due to coronavirus disease 2019; J96.01 Acute respiratory failure with hypoxia; E87.1 Hypo-osmolality and hyponatremia; I69.351 Hemiplegia and hemiparesis following cerebral infarction affecting right dominant side; E11.65 Type 2 diabetes mellitus with hyperglycemia; E66.9 Obesity, unspecified; Z68.27 Body mass index [BMI] 27.0-27.9, adult; E78.5 Hyperlipidemia, unspecified; E86.1 Hypovolemia; E87.5 Hyperkalemia; H54.7 Unspecified visual loss; I25.10 Atherosclerotic heart disease of native coronary artery without angina pectoris; I25.2 Old myocardial infarction; I49.1 Atrial premature depolarization; I11.9 Hypertensive heart disease without heart failure; Z51.5 Encounter for palliative care; Z79.82 Long term (current) use of aspirin; Z79.84 Long term (current) use of oral hypoglycemic drugs; Z79.899 Other long term (current) drug therapy; Z87.891 Personal history of nicotine dependence; Z88.8 Allergy status to other drugs, medicaments and biological substances; R77.8 Other specified abnormalities of plasma proteins; Z66 Do not resuscitate; R74.8 Abnormal levels of other serum enzymes
CPT/HCPCS: 36415; 36600; 71045; 71275; 80048; 80053; 81001; 82805; 83605; 83615; 83735; 83880; 84132; 84145; 84484; 85025; 85379; 85610; 85730; 86140; 87040; 87086; 87635; 93005; 93306; 93970; 94002; 94640; 94660; 94760; 99285